=== PATIENT | male | born 1960 | race Caucasian/White ===

== ENCOUNTER 2017-09-07 09:33 | Inpatient (IN) | payer MEDICARE, OTHER ==
[~2017-09-07] VITALS: Ht 185.4 cm; Wt 98.2 kg
[2017-09-07] MEDS ORDERED: BACL10TA PO (09:56)
[2017-09-07] MEDS ORDERED: PROP40TA5 PO (09:56)
[2017-09-07] MEDS ORDERED: ACET325T38 PO (09:56)
[2017-09-07] MEDS ORDERED: METF10002 PO (09:56)
[2017-09-07] MEDS ORDERED: FERR325T18 PO (09:56)
[2017-09-07] MEDS ORDERED: CARB1TAB45 PO (09:56)
[2017-09-07] MEDS ORDERED: ATEN50TA PO (09:56)
[2017-09-07] MEDS ORDERED: POLY17PO6 PO (09:58)
[2017-09-07] MEDS: SINEMET 25/250 (CARBIDOPA/LEVODOPA) TAB PO SCH ×3 (15:11→20:09)
[2017-09-07] MEDS ORDERED: DIAZ2TAB2 PO (17:15)
[2017-09-07] MEDS ORDERED: ACET-168 PO (17:15)
[2017-09-07] MEDS ORDERED: PEDI18TA2 PO (17:15)
[2017-09-07 17:57] VITALS: BP 164/94
[2017-09-07] MEDS: metFORMIN 500 MG (GLUCOPHAGE) TAB PO SCH (18:11)
[2017-09-07] MEDS: PROPRANOLOL 20 MG (INDERAL) TABLET PO SCH (20:09)
[2017-09-07] MEDS ORDERED: BACLOFEN 10 MG (LIORESAL) TAB PO SCH (21:00)
[2017-09-08] MEDS: SINEMET 25/250 (CARBIDOPA/LEVODOPA) TAB PO SCH ×8 (00:30→20:26)
[2017-09-08] MEDS: DIAZEPAM 2 MG (VALIUM) TAB PO PRN ×2 (00:32→22:15)
[2017-09-08 05:04] VITALS: BP 151/85
[2017-09-08] MEDS: metFORMIN 500 MG (GLUCOPHAGE) TAB PO SCH ×2 (06:18→17:45)
[2017-09-08] MEDS: FERROUS SULF 325 MG (IRON) TAB PO SCH (06:19)
[2017-09-08 07:50] VITALS: BP 121/71
[2017-09-08] MEDS: PROPRANOLOL 20 MG (INDERAL) TABLET PO SCH ×2 (08:00→20:26)
[2017-09-08] MEDS: ACETAMINOPHEN 325 MG TABLET/CAPLET (TYLENOL) PO PRN ×2 (08:11→22:15)
[2017-09-08] MEDS ORDERED: ATENOLOL 50 MG (TENORMIN) TAB PO SCH (09:00)
--- NOTE | 2017-09-08 11:47 | ST Cognitive Linguistic Eval ---
Speech Evaluation-General Medical Diagnosis Severe Parkinson's, Debility Onset Date: Sep 07, 2017 Therapy Diagnosis Therapy Diagnosis: Moderate Dysarthria, Moderate Dysphonia Precautions Precautions/Isolations: Standard Precautions Referral Referring Physician: Dr. Samson Ahn Reason for Referral: Evaluation/Treatment Cognitive, Speech, and Language Evaluation Medical History Pertinent Medical History: Parkinson's Current History The patient was recently admitted to [facility] with a diagnosis of severe Parkinson's and debility. Reviewed History: Yes Social History Home: Single Level ("16 Stairs") Current Living Status: Significant Other (Two twin daughters (22 years of age) , One son (17 years of age)) Speech PLF-Current Status Prior Level of Function The patient stated he has struggled with his speech intelligibility since the onset of his Parkinson's diagnosis "many years ago." The patient denied additional cognitive deficits. Subjective The patient was laying in bed upon entrance. The patient greeted the clinician and was agreeable to participation in the cognitive, speech, and language evaluation, however, kept his eyes closed for a majority of the assessment. To note- significantly flat affect noted. Language Eval: Auditory Comprehends Simple Yes/No Ques: Functional Indent/Objects Multiple You: Functional Ident/Pics in Multiple You: Functional Follows 1-Step Commands: Functional Follows Complex Directions: Functional (Intermittent delay noted, however, completed the instruction with additional time provided.) Follows General Conversations: Functional Language Eval: Verbal Language Completes Spontaneous Greeting: Functional Produces Auto, Serial Info: Functional Imitates Simple Words/Phrases: Functional Word Finding: Mild (The patient was able to provide seven animals in a duration of one minute (WNL=11 to 14).) Requests Basic Needs: Functional States Basic Personal Info: Functional To note, the patient's severely flat affect, reduced articulation, and monotone vocal quality reduces the patient's intelligibility through expression significantly. Language Evaluation: Reading Comprehends Single Nouns: Functional Follows Simple Written Direct: Functional Comprehends Multiple Sentences: Functional Language Evaluation: Writing Writes Personal Information: Functional (The patient stated he is able to record his name, however, due to the extensive edema he is experiencing in his hands he is unable to at this time.) Cognitive Patient Orientation The patient was oriented to month and year. The patient stated he was at "[facility] in [place]," the day of the week was "Friday," and the date was the . Objective Cognitive Domain Attention: Mild Memory: WNL At times, the patient's severely decreased affect resulted in the appearance of reduced motivation and participation. However, the patient consistently answered questions poised by the clinician and continued to participate in the assessment for thirty minutes. Objective Oral Motor/Speech Production The patient displays reduced (severely) affect- flat. Additionally, the patient speaks with imprecise articulation, a reduced rate of speech, and a monotonous vocal quality. At this time, the patient displays moderate dysarthria. Impression The patient displays a mild cognitive deficit, as well as, moderate dysarthria characterized by reduced articulation, flat affect, decreased rate of speech, and monotonous vocal quality. Per patient, his "speech problems" have occurred since the onset of his diagnosis "many years ago," however, he is interested in working towards improved intelligibility. Communication/Social Cognition Comprehension: 5 (The patient requires repetition of instructions and pausing for increased comprehension.) Expression: 3 (Moderate promptin is required. The patient is intelligible less than 50% of the time.) Social Interaction: 5 (Significantly flat affect noted. Intermittent encouragement for continued participation.) Problem Solvin (The patient solves routine problems 75 to 90% of the time.) Memory: 5 (The patient requires prompting only under stressful or unfamiliar condition (less than 10% of the time).) Speech Patient Assess Expression of Ideas/Wants: Exhibits (3) Understanding [place] Content: Usually Understands (3) Brief Interview-Mental Status: Yes Repetition of Three Words: Three (3) Temporal Orientation: Year: Correct (3) Temporal Orientation: Month: Accurate within 5 days(2) Temporal Orientation: Day: Incorrect or No Answer(0) Recall : Wear to say "Sock": Yes, no cue required (2) Recall : Color: Yes, no cue required (2) Recall : Bed: Yes, no cue required (2) Speech Short Term Goals Short Term Goals Short Term Goals 1. The patient will demonstrate 80% accuracy with oral motor exercises with mild clinician verbal cueing. 2. The patient will display 80% accuracy with intelligibility strategies with mild clinician cueing. Time Frame-STG: Ten Days Speech Jail Goals Bathhouse Keeper Goals 1. The patient will demonstrate increased expressive communication for improved intelligibility in known and unknown contexts. Time Frame: Two Weeks Comprehension: 5 Expression: 4 Social Interaction: 5 Problem Solvin Memory: 5 Speech-Plan Treatment Plan Speech Therapy Treatment Plan: Continue Plan of Care Continue skilled speech pathology to target improved functional expressive communication. Treatment Duration: September 22, 2017 Frequency: 3 times per week Estimated Hrs Per Day: .5 hour per day Rehab Potential: Guarded Safety Risks/Education Teaching Recipient: Patient Teaching Methods: Discussion Response to Teaching: Verbalize Understanding Education Topics Provided: Results, Recommendations, Plan of Care Time Speech Therapy Time In: 10:00 Speech Therapy Time Out: 10:30 Total Billed Time: 30 Billed Treatment Time 1, BUTCH JENKINS Sep 08, 2017 11:47
--- NOTE | 2017-09-08 12:56 | Physical Therapy Evaluation ---
PT Evaluation-General Medical Diagnosis Admission Date Sep 07, 2017 at 12:37 Medical Diagnosis: Severe Parkinson's, Debility Onset Date: Sep 07, 2017 Therapy Diagnosis Therapy Diagnosis: sepsis; UTI; PD Height/Weight Height (Feet): 6 Height (Inches): 1.00 Weight (Pounds): 214 Weight (Ounces): 3.0 Precautions Precautions/Isolations: Standard Precautions Referral Physician: Jimy Reason for Referral: Evaluation/Treatment Medical History Pertinent Medical History: DM, GERD, HTN, OA, Parkinson's Additional Medical History sleep apnea, metabolic encephalopathy, DDD; severe PD. Current History Pt has a history of PD; reports he recently had a fall and was taken to the hospital. Reports he was found to have a UTI and sepsis. Pt transferred to this facility for continued therapy services. Reviewed History: Yes Social History Home: Single Level Current Living Status: Significant Other (Two twin daughters (22 years of age) , One son (17 years of age)) Prior/Core FIM Prior Level of Function Functional Branch Measure 0=Not Assessed/NA 4=Minimal Assistance 1=Total Assistance 5=Supervision or Setup 2=Maximal Assistance 6=Modified Branch 3=Moderate Assistance 7=Complete Branch Pt reports he had assist getting into bed and moving around in bed. He does report he was able to walk with a SPC and mobilize in his home. He reports he was able to go outdoors and also to get his mail via ambulation. Reports he performs community mobilty. He reports he is able to go to [facility], but is unclear if he walks or uses a wheelchair. PT Evaluation-Current Subjective Pt agreeable to PT. Pt expresses that it will take 2-3 people to get him up. Reports apprehension about sitting EOB with therapy. Pain Numeric Pain Scale: 5-Moderate Pain Location: Soft Tissue Location Body Site: Shoulder (bilat) Pain Description: Ache (sore) Pt/Family Goals His goal is to return home and be able to walk as before. Objective Patient Orientation: Person, Confused (slight), Place, Time, Situation Problem Solving: Fair ROM/Strength ROM Lower Extremities AAROM is WFL all planes; stiff movement. Strenght Lower Extremities B LE strength is 2/5 for hip flexion, 3/5 quads, 3/5 hamstrings; 3/5 DF; hip abduct is 2/5. Integumentary/Posture Integumentary Refer to nursing notes. Bowel Incontinence: Yes Bladder Incontinence: Yes Posture Pt tends to drift to the right in supine in bed with head turned R as well. In sitting, his head is forward with rounded shoulders and anterior pelvic tilt. He has limited cervical rotation ROM and can really only attain neutral rotation and presents typically in right rotation and head forward. Neuromuscular (Tone, Coordination, Reflexes) Coordination and reflexes diminished. Sensory Vision: Functional Hearing: Functional Hand Dominance: Right Sensation Right Lower Extremit: Impaired Sensation Left Lower Extremity: Impaired Sensation Lower Extremities Pt reports his LE sensation is dulled. Transfers Functional Branch Measure 0=Not Assessed/NA 4=Minimal Assistance 1=Total Assistance 5=Supervision or Setup 2=Maximal Assistance 6=Modified Branch 3=Moderate Assistance 7=Complete IndependenceIRFPAI Quality Coding Scale 6 Independent with activity with or without an assistive device 5 Patient requires set up or clean up by helper. Patient completes activity by themselves 4 Supervision or touching assist (CGA). [place] provide cues , steadying assist 3 The helper provides less than half the effort to complete the activity 2 The helper provides more than half the effort to complete the activity 1 Dependent. The helper does all the effort to complete an activity 7 Patient refused to complete or attempt activity 9 The patient did not perform the activity before the current illness or injury 88 Not attempted due to Medical conditions or safety concerns Transfers (B, C, W/C) (FIM): 1 Scootin Rollin Roll Left to Right (QC): 1 Supine to/from Sit: 1 Sit to/from Stand: 1 (unable to come to a full stand) bed t/f WC(FIM only if WC use): 1 (dependent) Sit to Lying (QC): 1 Lying to Sitting/Side of Bed(Q: 1 Sit to Stand (QC): 1 Chair/[id number]-uj-Nmyqk Xfer(QC): 1 Car Transfer (QC): 1 Pt is assist of 2 for all transfers and mobility; unable to come to a full stand for transfers and is a total lift. Gait Does the Patient Walk?: No and Walking Goal IS indicated Mode of Locomotion: Walk Anticipated Mode of Locomotion: Both Gait (FIM): 0 (unable to walk at this time. ) Walk 10 feet (QC): 88 Walk 50 ft with 2 Turns(QC): 88 Walk 150 ft (QC): 88 Walking 10ft/uneven surface-QC: 88 Comments/Gait Description Pt unable to stand or initiate gait at this time. Wheelchair Training Does the Pt Use a Wheelchair?: Yes Wheelchair (FIM): 1 Wheelchair Distance (FIM): 0=does not occure Wheel 50 ft with 2 turns (QC): 88 Wheel 150 ft (QC): 88 Type of Wheelchair: Manual pt is dependent for wheelchair mobilty/ use at this time. Stairs Stairs (FIM): 0 1 Step (curb) (QC): 88 4 Steps (QC): 88 12 Steps (QC): 88 If not tested on admit;explain unable to stand up Balance Sitting Static: Poor (retropulsive and falls to the right. Needs mod to max assist for seated balance. ) Sitting Dynamic: Poor Picking up an Object (QC): 88 Treatment Worked on sitting EOB with use of UE's to prop and on seated trunk control. Worked on being aware of LOB and use of core to facilitate seated balance. Sit to stand attemps, total dependent and unable to come to a full stand. Rolling in bed for linen management as well as positioning in bed. Propped to his left to pressure relief. Assessment/Needs Pt presents with PMH of PD which limits his functional mobiolity at PLOF He recently had an infection that has caused a decline in functional strength and mobilty that he was mod indep with SBA at prior function is is not total care. He has a decline in strength, transfers, seated balance, ability to stand up and ability to walk. He was mobile previously, so feel that he has potential to make functional gains and progress his mobility to a level that his and family can manage at home. Currently, he is total assist, but is willing to participate. He also has decreased functional activity tolerance. Rehab Potential: Guarded PT Short Term Goals Short Term Goals Time Frame: September 22, 2017 Transfers (B,C,W/C) (FIM): 3 Gait (FIM): 2 Distance (FIM): 5=991-97 ft Gait Assistive Device: FWW Wheelchair (FIM): 4 Wheelchair distance (FIM): 3=150 ft PT Clinical Education Coordinator Goals Detention Goals PT Detention Goals Time Frame: October 06, 2017 Transfers (B,C,W/C) (FIM): 6 Sit to Lying (QC): 6 Lying-Sitting on Side/Bed(QC): 6 Sit to Stand (QC): 6 Roll Left to Right (QC): 6 Chair/Vnk-uk-Csrdu Xfer(QC): 6 Car Transfer (QC): 5 Does the Patient Walk: No and Walking Goal IS indicated Gait (FIM): 5 Gait distance (FIM): 5=660-12 ft (household exception) Walk 10 feet (QC): 6 Walk 10ft-Uneven Surface(QC): 6 Walk 50ft with 2 Turns (QC): 6 Walk 150 ft (QC): 88 Gait Assistive Device: FWW Does the Pt use WC or Scooter?: Yes Wheelchair (FIM): 6 Wheelchair distance (FIM): 3=150 ft Wheel 50 feet with 2 turns (QC: 6 Stairs (FIM): 2 # of Steps: 4 1 Step (curb) (QC): 4 4 Steps (QC): 4 12 Steps (QC): 88 Picking up an Object (QC): 88 PT Plan Problem List Problem List: Activity Tolerance, Functional Strength, Safety, Balance, Gait, Transfer, Bed Mobility Treatment/Plan Treatment Plan: Continue Plan of Care Treatment Plan: Bed Mobility, Education, Functional Activity [place], Functional Strength, Group Therapy, Gait, Safety, Therapeutic Exercise, Transfers Treatment Duration: October 06, 2017 Frequency: At least 5 of 7 days/Wk (IRF) Estimated Hrs Per Day: 1.5 hours per day Patient and/or Family Agrees t: Yes Safety Risks/Education Patient Education: Safety Issues Teaching Recipient: Patient Teaching Methods: Discussion Response to Teaching: Reinforcement Needed Time/GCodes Time In: 900 Time Out: 1000 Total Billed Treatment Time: 60 Total Billed Treatment visit EVM 30 FA 30 NAINA SHARPE PT Sep 08, 2017 12:56
--- NOTE | 2017-09-08 13:52 | Occupational Therapy Eval ---
OT Evaluation-General/PLF Medical Diagnosis Admission Date Sep 07, 2017 at 12:37 Medical Diagnosis: Severe Parkinson's, Debility Onset Date: Sep 07, 2017 Therapy Diagnosis Therapy Diagnosis: decr self care, weakness, decr funct mob, decr act rosalia Height/Weight Height (Feet): 6 Height (Inches): 1.00 Weight (Pounds): 214 Weight (Ounces): 3.0 Precautions Precautions/Isolations: Standard Precautions Safety Interventions: None Referral Physician: Jimy Referral Reason: Evaluation/Treatment Medical History Pertinent Medical History: DM, GERD, HTN, Neuropathy, OA, Parkinson's Additional Medical History Anxiety, depression. Sleep apnea. Chronic constipation, intermittent urinary incontinence. Back injury (pt reported three back surgeries), DDD. Tension headaches. Current History Severe Parkinson's. Debility. UTI. metabolic encephalopathy. Dyskinesia, bradykinesia. Cogwheel rigidity. Double vision. Unsteady gait. Pt reported that he fell and hit his head (forehead) in early August Reviewed History: Yes Social History Home: Single Level Current Living Status: Significant Other (Two twin daughters (22 years of age) , One son (17 years of age)) Entry Into Home: Stairs With Railing Steps Inside Home: 13 ADL-Prior Level of Function ADL PLOF Comments Pt was able to manage his basic self care needs prior to illness. He walked with a cane and was able to toilet himself. He said that he gave up driving about a year ago. He is retired from building chairs for [employer] and said that he has had Parkinson's for about 10 years. DME/Equipment: Grab Bars, Shower Hose Plant And Instrument Engineer, Tall Toilet, Tub/Shower Drive Self: No OT Current Status Subjective Pt seen in javid, up in bed, agreeable to OT. Pain reported 4/10 in buttocks, managed by repositioning. Appearance Alert, cooperative Mental Status/Objective Patient Orientation: Person, Place, Situation Current Glasses/Contacts: Yes (readers) Hearing Aids: No Dentures/Partials: Yes (upper amd lower) Hand Dominance: Right Upper Extremity ROM PROM grossly FL but limited by edema in hands. R shoulder flex approx 90 degr, elbow flex/ext grossly WFL, pron/sup WFL, unable to make a full fist due to edema in fingers. L UE shoulder grossly 30 degrees flex, elbow mid range, pron/ sup mid range, fingers - unable to make complete fist due to weakness and edema Upper Extremity Coordination impaired bilat Upper Extremity Sensation pt reported neuropathy in all fingers Upper Extremity Strength R UE grossly 3-/5 throughout. L UE grossly 2/5 throughout ADL-Treatment ADL-Current ADLs done in bed. Per PT, he was able to sit EOB this morning for approx 15 minutes. Pt rolled side to side several times each way to assist with bathing and dressing. Also had to reach arms up in the air multiple times for bathing and grooming and to help with dressing. Pt educ modified techniques. Pt was fitted with large Isotoner gloves for each hand to help decrease edema. He is at times very difficult to understand and is more intelligible when he says fewer words. Pt left up in bed, turned toward R side, L arm elevated on pillow , 4 rails up, all needs met. Talked with nursing informatics analyst about getting him a push button call light. Functional [place] Measure 0=Not Assessed/NA 4=Minimal Assistance 1=Total Assistance 5=Supervision or Setup 2=Maximal Assistance 6=Modified [place] 3=Moderate Assistance 7=Complete IndependenceIRFPAI Quality Coding Scale 6 Independent with activity with or without an assistive device 5 Patient requires set up or clean up by helper. Patient completes activity by themselves 4 Supervision or touching assist (CGA). [place] provide cues , steadying assist 3 The helper provides less than half the effort to complete the activity 2 The helper provides more than half the effort to complete the activity 1 Dependent. The helper does all the effort to complete an activity 7 Patient refused to complete or attempt activity 9 The patient did not perform the activity before the current illness or injury 88 Not attempted due to Medical conditions or safety concerns Grooming (FIM): 2 (Pt was able to get bottom denture out but help was needed to unstick uppers. Pt unable to brush teeth but could brush his mouth the setup , large handle to put on toothbrush, a little help to reposition toothbrush in mouth. Washed his face with min assist and hands with mod assist. Hair is short and does not need to be brushed. ) Oral Hygiene (QC): 2 Bathing (FIM): 1 (20%. PT was able to wash chest with mod assist to position washcloth. Able to wash chest with setup. Difficulty holding on to washcloth. Bedbath, done in bed. Max assist needed to roll side to side to wash back. ) Bathing Location: L Arm, Chest Shower/Bathe Self (QC): 2 Upper Body Dressing (FIM): 2 (Pt could help some to pull arms out of shirt and put them in but unable to get shirt over head, pulled fown in back. Max assist to roll sode to side to pull shirt down.) Upper Body Dressing (QC): 2 Lower Body Dressing (FIM): 1 (Pt was dependant with putting pants on and with slipper socks. max assist to roll side to side. Dressed in bed. ) Lower Body Dressing (QC): 1 On/Off Footwear (QC): 1 Toileting (FIM): 1 (Unable to manage clothing and hygiene) Toileting Hygiene (QC): 1 Toilet/Commode Transfer (FIM): 0 (Unable to transfer to BSC or toilet) Toilet Transfer (QC): 88 (Unable and unsafe) Shower Transfer (FIM): 0 (Unable and unsafe) Education OT Patient Education: Instructions don/doff splint/brace, Modified ADL techniques, Progress toward Goal/Update tx plan, Purpose of tx/functional activities, Rehab process, Other Teaching Recipient: Patient Teaching Methods: Demonstration, Discussion Response to Teaching: Verbalize Understanding, Return Demonstration, Reinforcement Needed OT Short Term Goals Short Term Goals Time Frame: September 22, 2017 Eating(FIM): 4 Bathing(FIM): 4 Upper Body Dressing(FIM): 4 Toilet/Commode Transfer(FIM): 3 Additional Short Term Goals: 1-Demonstrate ADL Tasks, 2-Verbalize Understanding , 3-ImproveStrength/[place] 1=Demonstrate adherence to instructed precautions during ADL tasks. 2=Patient will verbalize/demonstrate understanding of assistive devices/ modifications for ADL. 3=Patient will improve strength/tolerance for activity to enable patient to perform ADL's. OT Brewing Director Goals Brewing Director Goals Time Frame: October 06, 2017 Eating (FIM): 5 Eating (QC): 4 Groomin Oral Hygiene (QC): 5 Bathing(FIM): 4 Shower/Bathe Self (QC): 4 Upper Body Dressing(FIM): 5 Upper Body Dressing (QC): 5 Lower Body Dressing(FIM): 5 Lower Body Dressing (QC): 5 On/Off Footwear (QC): 5 Toileting(FIM): 44 Toileting Hygiene (QC): 4 Toilet/Commode Transfer(FIM): 4 Toilet/Commode Transfer (QC): 4 Tub Transfer(FIM): 4 (or shower) Shower Transfer(FIM): 4 (or tub) Comprehension(FIM): 5 Expression (FIM): 4 Social Interaction(FIM): 5 Problem Solving(FIM): 5 Memory(FIM): 5 Additional Goals: 1-Demonstrate ADL Tasks, 2-Verbalize Understanding, 3- ImproveStrength/[place] 1=Demonstrate adherence to instructed precautions during ADL tasks. 2=Patient will verbalize/demonstrate understanding of assistive devices/ modifications for ADL. 3=Patient will improve strength/tolerance for activity to enable patient to perform ADL's. OT Education/Plan Problem List/Assessment Assessment: Decreased Activ Tolerance, Decreased UE Strength, Dependent Transfers, Edema, Impaired Bed Mobility, Impaired Coordination, Impaired Funct Balance, Impaired Self-Care Skills, Restricted Funct UE ROM Pt would benefit from skilled OT to increase his independence in basic self care and to decrease caregiver burden Discharge Recommendations Plan/Recommendations: Continue POC Treatment Plan/Plan of Care Treatment,Training & Education: Yes Patient would benefit from OT for education, treatment and training to promote independence in ADL's, mobility, safety and/or upper extremity function for ADL' s. Plan of Care: ADL Retraining, Functional Mobility, Group Exercise/Act as Ind ( education, exercise, socialization, problem solving, funct mobility), Orthotic Fitting/Training, UE Funct Exercise/Act, UE Neuromus Re-Ed/Coord, W/C Management Training Treatment Duration: October 06, 2017 Frequency: At least 5 of 7 days/Wk (IRF) Estimated Hrs Per Day: 1.5 hours per day (1.25 to 1.5) Agreement: Yes Rehab Potential: Poor Time/GCodes Start Time: 10:30 Stop Time: 11:35 Total Time Billed (hr/min): 65 Billed Treatment Time visit, 15 minutes evaluation high intensity, 50 minutes ADL CELIO PERDUE OT Sep 08, 2017 13:52
--- NOTE | 2017-09-08 15:09 | Occupational Ther Daily Note ---
OT Current Status-Daily Note Subjective Pt seen in room, up in bed, agreeable to OT. No pain mentioned. Appearance Alert, cooperative Mental Status/Objective Functional [place] Measure 0=Not Assessed/NA 4=Minimal Assistance 1=Total Assistance 5=Supervision or Setup 2=Maximal Assistance 6=Modified [place] 3=Moderate Assistance 7=Complete [place] ADL-Treatment Pt was assisted with lunch, using built up handled utensils and R hand. He needed help scooping, getting food to his mouth. He was left sitting upright in bed at end of meal, 4 rails up. Pt also had been provided with touch-sensitive call light and was able to operate it with R hand. Functional [place] Measure 0=Not Assessed/NA 4=Minimal Assistance 1=Total Assistance 5=Supervision or Setup 2=Maximal Assistance 6=Modified [place] 3=Moderate Assistance 7=Complete IndependenceIRFPAI Quality Coding Scale 6 Independent with activity with or without an assistive device 5 Patient requires set up or clean up by helper. Patient completes activity by themselves 4 Supervision or touching assist (CGA). [place] provide cues , steadying assist 3 The helper provides less than half the effort to complete the activity 2 The helper provides more than half the effort to complete the activity 1 Dependent. The helper does all the effort to complete an activity 7 Patient refused to complete or attempt activity 9 The patient did not perform the activity before the current illness or injury 88 Not attempted due to Medical conditions or safety concerns Eating (FIM): 2 (Built up handles used for silverware. Pt needed help scooping food, needed help lifting elbow and arm to get utensil or food to his mouth, then was able to get food off utensil. Help needed to butter bread, then help to lift arm to get bread to mouth. Pt got food to mouth x1 without help lifting arm or placing utensil. Unable to hold mug could get drink from small cup on table. Pt had difficulty chewing and swallowing roast and did better when it was mixed with gravy and potatoes. Speech notified) Eating (QC): 2 Education OT Patient Education: Modified ADL techniques, Purpose of tx/functional activities, Safety issues Teaching Recipient: Patient Teaching Methods: Demonstration, Discussion Response to Teaching: Verbalize Understanding, Return Demonstration, Reinforcement Needed OT Short Term Goals Short Term Goals Time Frame: September 22, 2017 Eating(FIM): 4 Bathing(FIM): 4 Upper Body Dressing(FIM): 4 Toilet/Commode Transfer(FIM): 3 Additional Short Term Goals: 1-Demonstrate ADL Tasks, 2-Verbalize Understanding , 3-ImproveStrength/[place] 1=Demonstrate adherence to instructed precautions during ADL tasks. 2=Patient will verbalize/demonstrate understanding of assistive devices/ modifications for ADL. 3=Patient will improve strength/tolerance for activity to enable patient to perform ADL's. OT County Coroner Goals Fdc Goals Time Frame: October 06, 2017 Eating (FIM): 5 Eating (QC): 4 Groomin Oral Hygiene (QC): 5 Bathing(FIM): 4 Shower/Bathe Self (QC): 4 Upper Body Dressing(FIM): 5 Upper Body Dressing (QC): 5 Lower Body Dressing(FIM): 5 Lower Body Dressing (QC): 5 On/Off Footwear (QC): 5 Toileting(FIM): 44 Toileting Hygiene (QC): 4 Toilet/Commode Transfer(FIM): 4 Toilet/Commode Transfer (QC): 4 Tub Transfer(FIM): 4 (or shower) Shower Transfer(FIM): 4 (or tub) Comprehension(FIM): 5 Expression (FIM): 4 Social Interaction(FIM): 5 Problem Solving(FIM): 5 Memory(FIM): 5 Additional Goals: 1-Demonstrate ADL Tasks, 2-Verbalize Understanding, 3- ImproveStrength/[place] 1=Demonstrate adherence to instructed precautions during ADL tasks. 2=Patient will verbalize/demonstrate understanding of assistive devices/ modifications for ADL. 3=Patient will improve strength/tolerance for activity to enable patient to perform ADL's. OT Education/Plan Problem List/Assessment Pt would benefit from skilled OT to increase his independence in basic self care and to decrease caregiver burden Discharge Recommendations Plan/Recommendations: Continue POC Treatment Plan/Plan of Care Patient would benefit from OT for education, treatment and training to promote independence in ADL's, mobility, safety and/or upper extremity function for ADL' s. Plan of Care: ADL Retraining, Functional Mobility, Group Exercise/Act as Ind ( education, exercise, socialization, problem solving, funct mobility), Orthotic Fitting/Training, UE Funct Exercise/Act, UE Neuromus Re-Ed/Coord, W/C Management Training Treatment Duration: October 06, 2017 Frequency: At least 5 of 7 days/Wk (IRF) Estimated Hrs Per Day: 1.5 hours per day (1.25 to 1.5) Agreement: Yes Rehab Potential: Poor Time/GCodes Start Time: 12:35 Stop Time: 13:05 Total Time Billed (hr/min): 30 Billed Treatment Time visit, 30 minutes ADL CELIO PERDUE OT Sep 08, 2017 15:09
--- NOTE | 2017-09-08 16:27 | PM&R Post Admission Assessment ---
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 The patient will have a comprehensive program of inpatient rehabilitation with a goal of maximizing level of functional independence prior to discharge home with SO. The patient will have PT/OT ninety minutes per day, each discipline, five days a week for 2 weeks for gait, strengthening, conditioning, balance, ADLs, any patient/family/caregiver training as necessary. Speech therapy to do cognitive,speech and swallow assessment and treat as indicated for 30-45 min per day for 5 days a week for 2 weeks. Rehabilitation nursing to assist with bowel, bladder, skin, medication administration, pain management. Rustic Fence Builder to assist with discharge planning, community reentry. SCD's for DVT prophylaxis. He appears to be well motivated to participate in three hours of therapy a day. He should be able to tolerate three hours of therapy a day from a medical standpoint. He should benefit from the three hours of therapy a day. He has a reasonable discharge plan, reasonable discharge rehabilitation goals and a supportive family. He has various comorbidities that need to be closely monitored with medications and treatments adjusted on a daily basis as needed. These include: DM HTN GERD Barriers to discharge for this patient who had been independent prior to this are for him to be modified independent to supervision for ADLs and mobility skills prior to discharge home with spouse, so as to lessen the burden of the caregivers. Risks for this patient include: 1. Fall 2. Fracture 3. DVT 4. Pulmonary embolism 5. Wound infection 6. Skin breakdown 7. Contractures 8. Poorly controlled pain 9. Urinary retention 10. UTI 11. Respiratory infection 12. Aspiration 13. progressive park D 15. Poorly controlled HTN 15. Poorly controlled DM Estimated Length of Stay: 14 days Prognosis: Rehab prognosis appears good for goal of discharge home with SO modified independent to supervision for ADLs and mobility skills. General: Alert, Cooperative, No Acute Distress HEENT: Atraumatic, PERRLA, EOMI, Mucous Memb Moist/[place], Other (Flat affect Monotone voice) Neck: Supple, No JVD Lungs: Clear to Auscultation Heart: Regular Rate Abdomen: Normal Bowel Sounds, Soft, No Tenderness Extremities: No Edema Neuro: Other (Plus rigidity with dyscoordination and decreased sensation BLES Mild memry loos and impaired Comprehension Gait instability) DAISHA MUSTAFA MD Sep 08, 2017 16:27
[2017-09-08 17:39] VITALS: BP 135/76
--- NOTE | 2017-09-08 17:43 | HISTORY AND PHYSICAL ---
DATE OF SERVICE: 09/08/2017 CHIEF COMPLAINT: Difficulty walking. HISTORY OF PRESENT ILLNESS: The patient is a 57-year-old male who lives with family in [place], [place] who has had progressive Parkinson's for several years, but had been able to manage his basic self-care needs prior to illness and ambulated with a cane and was able to toilet himself. Currently, he was taken to an outside hospital after a fall, was found to have UTI. He had a decline in functional independence due to all this. There is a history of some bladder and bowel incontinence. Currently, he is assist of two for all transfers and mobility, unable to come to a full stand for transfers and has a total lift. He is max assist for grooming, bathing, upper body dressing, dependent for lower body dressing and toileting. He is on Sinemet. PAST MEDICAL HISTORY: Parkinson's disease, diabetes mellitus, GERD, hypertension, neuropathy, osteoarthritis, chronic constipation, sleep apnea, anxiety, depression, prior back injury, tension headaches, degenerative disk disease. PAST SURGICAL HISTORY: Three prior spine surgeries. ALLERGIES: TANYA INHIBITORS, ASPIRIN AND LOSARTAN. FAMILY HISTORY: Noncontributory. SOCIAL HISTORY: Lives with a significant other in [place], [place]. He has two twin daughters and one son 22 years of age and 17 years of age respectively. There are stairs with a railing to enter into the home with a single level home.Referred to IRU by [facility] REVIEW OF SYSTEMS: A 10-point review of systems significant for some memory loss, weakness, stiffness, falls, intermittent urinary incontinence, back pain, anxiety, depression, tension headaches. MEDICATIONS: Ferrous sulfate 325 mg p.o. daily, Inderal 40 mg p.o. b.i.d., metformin 1000 mg p.o. b.i.d., Sinemet two tablets p.o. every 3 hours, diazepam 2 mg p.o. t.i.d. p.r.n. anxiety, Tylenol 650 mg p.o. q.4 hours p.r.n. mild pain, MiraLax 17 grams p.o. b.i.d. p.r.n. constipation. PHYSICAL EXAMINATION: GENERAL: Significant for a male appearing stated age, lying in bed, no acute distress. VITAL SIGNS: He is afebrile, pulse is 89, respirations 20, blood pressure 121/71, O2 sat 98% on room air. HEENT: He has a somewhat flat affect. Vision and hearing are grossly intact. He has reduced articulation and monotone vocal quality. NEUROLOGIC: He has mild attention deficits. He has a reduced rate of speech. The patient required repetition of instructions and pausing for increase comprehension, moderate prompting is required for expression. The patient's can answer routine problems 75 to 90% of the time. The patient's memory is mildly impaired. NECK: Supple without mass. HEART: Regular rhythm. CHEST: Clear. ABDOMEN: Soft, nontender, bowel sounds present. EXTREMITIES: No lower extremity edema, no calf tenderness. MUSCULOSKELETAL: The patient has functional passive range of motion of all four limbs, but decreased coordination and increased stiffness. NEUROLOGIC: Speech and cognition as per above. Sensation is decreased in lower limbs, coordination and reflexes are diminished. He has stiffness with movement. Strength is 2/5 for hip flexion, 3/5 quads as well as hamstrings and dorsi flexors, hip abductors 2/5. He has dentures. He is right hand dominant. Coordination in both upper limbs is impaired. He reported some neuropathy in his fingers. Strength right upper limb 3-/5, left upper limb 2/5. ASSESSMENT: 1. Progressive Parkinson's disease with resulting decline in functional independence, status post fall associated with UTI. 2. Diabetes mellitus, controlled with medication. 3. Hypertension, controlled with medication. 4. Neuropathy. 5. Gastroesophageal reflux disease. 6. Osteoarthritis. 7. Chronic constipation. 8. Sleep apnea. 9. Anxiety/depression. 10. Intermittent urinary incontinence. 11. Chronic back pain status post 3 prior surgeries. 12. Tension headaches. PLAN: The patient is admitted to the inpatient rehabilitation unit for a comprehensive program of inpatient rehabilitation with goal of maximizing level of functional independence prior to discharge home with significant other. The patient will have PT, OT, speech as outlined in post-admission physician evaluation. Please see that document for details of plan of care. Rehabilitation nursing to assist with bowel, bladder, skin care, medication administration, pain management and social media intern with discharge planning, community reentry. Consult Dr. Atkins to assist with medical management of this out of town patient. Monitor Accu-Cheks and adjust medications as appropriate. Therapy with cardiac and fall precautions. ESTIMATED LENGTH OF STAY: 14 days. PROGNOSIS: Rehab prognosis appears good for improving to prior level of function hopefully prior to discharge to home with significant other. DIET: Carb consistent. CODE STATUS: Full code. Job ID: [id number] DocumentID: [id number] Dictated Date: 09/08/2017 16:20:42 Bus Person Dishwasher Date: 09/08/2017 17:42:38 Dictated By: DAISHA MUSTAFA MD MTDD
[2017-09-09] MEDS: SINEMET 25/250 (CARBIDOPA/LEVODOPA) TAB PO SCH ×8 (00:01→21:14)
[2017-09-09 05:21] VITALS: BP 147/84
[2017-09-09] MEDS: FERROUS SULF 325 MG (IRON) TAB PO SCH (06:04)
[2017-09-09] MEDS: metFORMIN 500 MG (GLUCOPHAGE) TAB PO SCH ×2 (06:04→17:01)
[2017-09-09] MEDS: ACETAMINOPHEN 325 MG TABLET/CAPLET (TYLENOL) PO PRN ×2 (08:41→19:32)
[2017-09-09] MEDS: PROPRANOLOL 20 MG (INDERAL) TABLET PO SCH ×2 (08:41→21:14)
--- NOTE | 2017-09-09 09:59 | Physical Therapy Daily Note ---
PT Daily Note-Current Subjective Agreeable. Reports he did not sleep well last night but notes he does not typically sleep well. Pain Numeric Pain Scale: 7 Location: Posterior Location Body Site: Back (cervical spine) Pain Description: Ache, Dull, Stabbing Comment: constant Mental Status Patient Orientation: Person, Place, Time, Situation Transfers Functional [place] Measure 0=Not Assessed/NA 4=Minimal Assistance 1=Total Assistance 5=Supervision or Setup 2=Maximal Assistance 6=Modified [place] 3=Moderate Assistance 7=Complete IndependenceIRFPAI Quality Coding Scale 6 Independent with activity with or without an assistive device 5 Patient requires set up or clean up by helper. Patient completes activity by themselves 4 Supervision or touching assist (CGA). [place] provide cues , steadying assist 3 The helper provides less than half the effort to complete the activity 2 The helper provides more than half the effort to complete the activity 1 Dependent. The helper does all the effort to complete an activity 7 Patient refused to complete or attempt activity 9 The patient did not perform the activity before the current illness or injury 88 Not attempted due to Medical conditions or safety concerns Transfers (B, C, W/C) (FIM): 1 [place] Supine to/from Sit: 1 (Assist of 1 to sit EOB but assist of 2 to transfer sit to supine) Sit to stand lift to stand and transfer. Performed 3 transfers with the sit to stand lift; assist to support his hands and close supervision. Sit to stand x 1 in // bars with assist at both hands to hold the // bars. Pt able to full lift buttock off chair with max assist and bear weight through both legs. Unable to fully extend his shoulders or neck very forward flexed, and head rested ont his therapists shoulder. Able to stand approx 20 sec but once standing only required mod assist to maintain. Wheelchair Training Does the Pt Use a Wheelchair?: Yes Wheelchair (FIM): 1 Wheelchair Distance: 1=up to 49 ft Distance: 10 ft Wheelchair Level of Assist: 2 Wheel 50 ft with 2 turns (QC): 88 Wheel 150 ft (QC): 88 Type of Wheelchair: Manual Fit wheelchair to his leg length. Added wC cushion Treatments Co treat part of session with OT (923-2). Due to the complexity of his needs and extensive assist required, 2 skilled clinicians indicated to address his gross and fine motor movement as well. In addition, As PT addressed the functional transfer, OT was assessing WC seating, commode size and self care needs. Decided together that knobs on the wheelchair will be beneficial for propulsion of chair with UE's Assessment Pt tolerated treatment well and tolerated the sit to stand lift very well. Feel that he benefitted today from chair fitting, upright sitting, standing activity and out of room activity. Pt motivated and pleasant. Improved ability to initiate mobiltyu today. PT Short Term Goals Short Term Goals Time Frame: September 22, 2017 Gait (FIM): 2 Distance (FIM): 4=929-21 ft Gait Assistive Device: FWW Wheelchair (FIM): 4 Wheelchair distance (FIM): 3=150 ft PT [place] Slabs Goals [place] Slabs Goals PT Usp Goals Time Frame: October 06, 2017 Transfers (B,C,W/C) (FIM): 6 Sit to Lying (QC): 6 Lying-Sitting on Side/Bed(QC): 6 Sit to Stand (QC): 6 Rollin Roll Left to Right (QC): 6 Chair/[id number]-qs-[id number] Xfer(QC): 6 Car Transfer (QC): 5 Does the Patient Walk: No and Walking Goal IS indicated Gait (FIM): 5 Gait distance (FIM): 3=495-41 ft (household exception) Walk 10 feet (QC): 6 Walk 10ft-Uneven Surface(QC): 6 Walk 50ft with 2 Turns (QC): 6 Walk 150 ft (QC): 88 Gait Assistive Device: FWW Does the Pt use WC or Scooter?: Yes Wheelchair (FIM): 6 Wheelchair distance (FIM): 3=150 ft Wheel 50 feet with 2 turns (QC: 6 Stairs (FIM): 2 # of Steps: 4 1 Step (curb) (QC): 4 4 Steps (QC): 4 12 Steps (QC): 88 Picking up an Object (QC): 88 PT Plan Problem List Problem List: Activity Tolerance, Functional Strength, Safety, Balance, Gait, Transfer, Bed Mobility Treatment/Plan Treatment Plan: Continue Plan of Care Treatment Plan: Bed Mobility, Education, Functional Activity [place], Functional Strength, Group Therapy, Gait, Safety, Therapeutic Exercise, Transfers Treatment Duration: October 06, 2017 Frequency: At least 5 of 7 days/Wk (IRF) Estimated Hrs Per Day: 1.5 hours per day Patient and/or Family Agrees t: Yes Safety Risks/Education Patient Education: Transfer Techniques (sit to stand lift ), Safety Issues Teaching Recipient: Patient Teaching Methods: Demonstration, Discussion Response to Teaching: Reinforcement Needed Time/GCodes Time In: 800 Time Out: 900 Total Billed Treatment Time: 60 Total Billed Treatment visit FA 60 Co treat with OT 45 min NAINA SHARPE PT September 09, 2017 09:59
--- NOTE | 2017-09-09 12:30 | Consultation ---
History of Present Illness History of Present Illness Patient Consulted On(robbie/time) 09/09/17 12:20 Time Seen by Provider: 12:15 History of Present Illness Patient is a 57-year-old male who has progressive Parkinson disease. Patient recently had a fall, UTI and decline functional dependence. Patient has history of diabetes, GERD, hypertension, sleep apnea, osteoarthritis , chronic constipation, area Surgeries 3 spinal surgeries previously. Patient has degenerative disc disease. Patient has Parkinson disease. Patient speech is not optimal. Patient penis and scrotum enlarged swollen and appears yeast Allergies and Home Medications Allergies Coded Allergies: aspirin (Verified Allergy, Intermediate, 09/07/17) swelling losartan (Verified Allergy, Intermediate, 09/07/17) swelling TANYA Inhibitors (Verified Allergy, Mild, 09/07/17) fatigue Home Medications Acetaminophen 500 Mg Tablet, 1,000 MG PO BID PRN for PAIN-MILD, (Reported) TAKES 2 (500 MG) TABLETS Carbidopa/Levodopa 1 Each Tab.rapdis, 2 TAB PO EVERY 3 HOURS, (Reported) Diazepam 2 Mg Tablet, 2 MG PO Q8H PRN for MUSCLE SPASMS, (Reported) Metformin HCl 1,000 Mg Tablet, 1,000 MG PO BID WITH MEALS, (Reported) Pedi Mv No.79/Ferrous Fumarate 18 Mg Tab.chew, 18 MG PO DAILY, (Reported) Polyethylene Glycol 3350 17 Gm Powd.pack, 17 GM PO BID PRN PRN for CONSTIPATION- 2ND LINE, (Reported) Propranolol HCl 40 Mg Tablet, 40 MG PO BID, (Reported) Patient Home Medication List Home Medication List Reviewed: Yes Past Bevjmlu-Epeied-Fcofic Hx Patient Social History Alcohol Use: Denies Use Recreational Drug Use: No Smoking Status: Never a Smoker Recent Foreign Travel: No Contact w/Someone Who Travel: No Recent Infectious Disease Expo: No Recent Hopitalizations: Yes Seasonal Allergies Seasonal Allergies: No Past Medical History Surgeries: Yes Respiratory: No Sleep Apnea Cardiac: Yes Neurological: Yes Genitourinary: No Chronic Constipation Musculoskeletal: Yes Degenerate Disk Disease, Chronic Back Pain Are Your Blood Sugars Over 250: Yes HEENT: No Cancer: No Psychosocial: Yes Anxiety, Depression Integumentary: No Blood Disorders: No Review of Systems-General Constitutional: malaise, weakness EENTM: no symptoms reported Respiratory: no symptoms reported Cardiovascular: no symptoms reported Gastrointestinal: no symptoms reported Genitourinary: other (Swollen penis and scrotum and redness) Physical Exam-General Problems Physical Exam Vital Signs Vital Signs - First Documented 09/07/17 09/07/17 17:57 20:15 Temp 96.9 Pulse 86 Resp 16 B/P (MAP) 164/94 (117) Pulse Ox 99 O2 Delivery Room Air Capillary Refill : General Appearance: WD/WN, no apparent distress Eyes: Bilateral Eye Normal Inspection HEENT: normal ENT inspection Neck: full range of motion, normal inspection Respiratory: chest non-tender, normal breath sounds, no respiratory distress, no accessory muscle use Cardiovascular: regular rate, rhythm, no murmur Assessment/Plan Assessment/Plan Admission Diagnosis/Plan Severe Parkinson. Debility. Diabetes. Osteoarthritis. Weakness. Clinical Quality Measures DVT/VTE Risk/Contraindication: Risk Factor Score Per Nursin RFS Level Per Nursing on Admit: 3=High JAMES DE LA CRUZ DO September 09, 2017 12:30
--- NOTE | 2017-09-09 13:21 | Occupational Ther Daily Note ---
OT Current Status-Daily Note Subjective Pt seen in room, up at EOB, agreeable to OT. Pt rated pain in neck 11/18 and said he has had it since he fell and hit his head. Appearance Alert, cooperative Mental Status/Objective Functional [place] Measure 0=Not Assessed/NA 4=Minimal Assistance 1=Total Assistance 5=Supervision or Setup 2=Maximal Assistance 6=Modified [place] 3=Moderate Assistance 7=Complete [place] ADL-Treatment Co-tx with PT due to complexity of limitations and need for two different skilled professionals to address issues. PT focused on transfer and positioning while OT focused on w/c management with UEs, ADLs, UE function and placement. Pt transferred from bed to w/c with sit to stand lift, with help to place hands on arm rests of lift. By last transfer, he was able to lift both hands to assist with placement. In w/c, pt had difficulty pushing rims. Would benefit from gloves to provide more traction and knobs on rims. Also practiced toilet transfer using Donaldo lift. BSC in room was too wide so a smaller one with flat surface was found. In gym, pt practiced standing in parallel bars. OT skilled assistance needed for hand placement on L side but he was able to cloth picker and place R hand. See PT note for actual standing information, as needed for standing to pull pants up and transfer on toilet. Pt was returned to his room and transferred back to bed with sit to stand lift, with pt helping to hold on to arms of lift. Isotoner gloves were on but removed to help with transfer - edema has decreased in hands. Pt left up in bed, 4 rails up. Touch call light button works well. Pt also able to get a drink of tea by himself using Levy cup (with min assist). Functional [place] Measure 0=Not Assessed/NA 4=Minimal Assistance 1=Total Assistance 5=Supervision or Setup 2=Maximal Assistance 6=Modified [place] 3=Moderate Assistance 7=Complete IndependenceIRFPAI Quality Coding Scale 6 Independent with activity with or without an assistive device 5 Patient requires set up or clean up by helper. Patient completes activity by themselves 4 Supervision or touching assist (CGA). [place] provide cues , steadying assist 3 The helper provides less than half the effort to complete the activity 2 The helper provides more than half the effort to complete the activity 1 Dependent. The helper does all the effort to complete an activity 7 Patient refused to complete or attempt activity 9 The patient did not perform the activity before the current illness or injury 88 Not attempted due to Medical conditions or safety concerns Eating (FIM): 4 Transfers (B, C, W/C) (FIM): 1 Toilet/Commode Transfer (FIM): 1 Education OT Patient Education: Modified ADL techniques, Purpose of tx/functional activities, Transfer techniques, Use of adapted equipment Teaching Recipient: Patient Teaching Methods: Discussion Response to Teaching: Verbalize Understanding, Return Demonstration, Reinforcement Needed OT Short Term Goals Short Term Goals Time Frame: September 22, 2017 Eating(FIM): 4 Bathing(FIM): 4 Upper Body Dressing(FIM): 4 Toilet/Commode Transfer(FIM): 3 Additional Short Term Goals: 1-Demonstrate ADL Tasks, 2-Verbalize Understanding , 3-ImproveStrength/[place] 1=Demonstrate adherence to instructed precautions during ADL tasks. 2=Patient will verbalize/demonstrate understanding of assistive devices/ modifications for ADL. 3=Patient will improve strength/tolerance for activity to enable patient to perform ADL's. OT Blender Laborer Goals Blender Laborer Goals Time Frame: October 06, 2017 Eating (FIM): 5 Eating (QC): 4 Groomin Oral Hygiene (QC): 5 Bathing(FIM): 4 Shower/Bathe Self (QC): 4 Upper Body Dressing(FIM): 5 Upper Body Dressing (QC): 5 Lower Body Dressing(FIM): 5 Lower Body Dressing (QC): 5 On/Off Footwear (QC): 5 Toileting(FIM): 44 Toileting Hygiene (QC): 4 Toilet/Commode Transfer(FIM): 4 Toilet/Commode Transfer (QC): 4 Tub Transfer(FIM): 4 (or shower) Shower Transfer(FIM): 4 (or tub) Comprehension(FIM): 5 Expression (FIM): 4 Social Interaction(FIM): 5 Problem Solving(FIM): 5 Memory(FIM): 5 Additional Goals: 1-Demonstrate ADL Tasks, 2-Verbalize Understanding, 3- ImproveStrength/[place] 1=Demonstrate adherence to instructed precautions during ADL tasks. 2=Patient will verbalize/demonstrate understanding of assistive devices/ modifications for ADL. 3=Patient will improve strength/tolerance for activity to enable patient to perform ADL's. OT Education/Plan Problem List/Assessment Pt would benefit from skilled OT to increase his independence in basic self care and to decrease caregiver burden Discharge Recommendations Plan/Recommendations: Continue POC Treatment Plan/Plan of Care Patient would benefit from OT for education, treatment and training to promote independence in ADL's, mobility, safety and/or upper extremity function for ADL' s. Plan of Care: ADL Retraining, Functional Mobility, Group Exercise/Act as Ind ( education, exercise, socialization, problem solving, funct mobility), Orthotic Fitting/Training, UE Funct Exercise/Act, UE Neuromus Re-Ed/Coord, W/C Management Training Treatment Duration: October 06, 2017 Frequency: At least 5 of 7 days/Wk (IRF) Estimated Hrs Per Day: 1.5 hours per day (1.25 to 1.5) Agreement: Yes Rehab Potential: Poor Time/GCodes Start Time: 08:15 Stop Time: 09:00 Total Time Billed (hr/min): 45 Billed Treatment Time visit, 45 minutes functional activity (co-tx with PT) CELIO PERDUE OT September 09, 2017 13:21
[2017-09-09] MEDS: NYSTATIN CREAM (MYCOSTATIN) 30 GM TUBE TP SCH ×2 (13:23→21:14)
--- NOTE | 2017-09-09 13:56 | PM & R (SOAP) Progress Note ---
Subjective This was a face to face visit with the patient. Date Seen by Provider: September 09, 2017 Time Seen by Provider: 11:50 Subjective/Events-last exam Patient was seen in his room this AM Patient min assist for eating with built up spoon handle.Appreciate Therapy notes Patient dependent for transfers Review of Systems Neurological: Weakness Objective Physician Exam Last Set of Vital Signs Vital Signs Date Time Temp Pulse Resp B/P (MAP) Pulse Ox O2 Delivery O2 Flow Rate FiO2 09/09/17 09:29 Room Air 09/09/17 05:21 98.1 77 16 147/84 (105) 97 Capillary Refill : I&O Intake and Output 09/09/17 00:00 Intake Total 1640 ml Balance 1640 ml Intake Oral 1640 ml # Voids 6 General: Alert, Cooperative, No Acute Distress HEENT: Atraumatic, PERRLA, EOMI, Mucous Memb Moist/[place]arn[place], Other (Flat affect Monotone voice) Neck: Supple, No JVD Lungs: Clear to Auscultation Heart: Regular Rate Abdomen: Normal Bowel Sounds, Soft, No Tenderness Extremities: No Edema Neuro: Other (Plus rigidity with dyscoordination and decreased sensation BLES Mild memry loos and impaired Comprehension Gait instability) Results Lab Data Laboratory Tests 09/07/17 16:07: Glucometer 158H 09/07/17 20:51: Glucometer 188H 09/08/17 05:39: Glucometer 169H 09/08/17 10:22: Glucometer 127H 09/08/17 15:58: Glucometer 146H 09/08/17 21:17: Glucometer 153H 09/09/17 05:14: Glucometer 152H 09/09/17 11:11: Glucometer 198H Assessment/Plan Assessment and Plan Progressive [place] D DM controlled with meds HTN controlled with meds Neuropathy GERD OA Chronic constipation Sleep apnea Anxiety/depression Tension headaches Chronic post op back pain Plan Continue PT/OT/ST Team Conference in AM Continue current meds (1) Severe possible 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
--- NOTE | 2017-09-09 14:04 | Physical Therapy Daily Note ---
PT Daily Note-Current Subjective Agreeable to PT. Transfers Functional [place] Measure 0=Not Assessed/NA 4=Minimal Assistance 1=Total Assistance 5=Supervision or Setup 2=Maximal Assistance 6=Modified [place] 3=Moderate Assistance 7=Complete IndependenceIRFPAI Quality Coding Scale 6 Independent with activity with or without an assistive device 5 Patient requires set up or clean up by helper. Patient completes activity by themselves 4 Supervision or touching assist (CGA). [place] provide cues , steadying assist 3 The helper provides less than half the effort to complete the activity 2 The helper provides more than half the effort to complete the activity 1 Dependent. The helper does all the effort to complete an activity 7 Patient refused to complete or attempt activity 9 The patient did not perform the activity before the current illness or injury 88 Not attempted due to Medical conditions or safety concerns Supine to sit EOB with max of 1 assist. Mod assist to maintain seated EOB. Sit to stand lift to transfer bed to chair. Pt had difficulty keeping hands on lift to hold on, but was secure as he transferred. Wheelchair Training Does the Pt Use a Wheelchair?: Yes Wheelchair (FIM): 2 Wheelchair Distance: 1=up to 49 ft Distance: 30 ft Wheelchair Level of Assist: 5 Wheel 50 ft with 2 turns (QC): 2 Type of Wheelchair: Manual used chair that had knobs on the rims for UE propulsion Assessment Pt did great with p ropelling wheelchair with his arms once the knobs were available for propulsion. PT Short Term Goals Short Term Goals Time Frame: September 22, 2017 Gait (FIM): 2 Distance (FIM): 4=958-23 ft Gait Assistive Device: FWW Wheelchair (FIM): 4 Wheelchair distance (FIM): 3=150 ft Wheelchair Distance: 10 ft PT Brand Manager Goals Chcf Goals PT Chcf Goals Time Frame: October 06, 2017 Transfers (B,C,W/C) (FIM): 6 Sit to Lying (QC): 6 Lying-Sitting on Side/Bed(QC): 6 Sit to Stand (QC): 6 Rollin Roll Left to Right (QC): 6 Chair/Zel-vs-Gqymw Xfer(QC): 6 Car Transfer (QC): 5 Does the Patient Walk: No and Walking Goal IS indicated Gait (FIM): 5 Gait distance (FIM): 0=931-40 ft (household exception) Walk 10 feet (QC): 6 Walk 10ft-Uneven Surface(QC): 6 Walk 50ft with 2 Turns (QC): 6 Walk 150 ft (QC): 88 Gait Assistive Device: FWW Does the Pt use WC or Scooter?: Yes Wheelchair (FIM): 6 Wheelchair distance (FIM): 3=150 ft Wheel 50 feet with 2 turns (QC: 6 Stairs (FIM): 2 # of Steps: 4 1 Step (curb) (QC): 4 4 Steps (QC): 4 12 Steps (QC): 88 Picking up an Object (QC): 88 PT Plan Problem List Problem List: Activity Tolerance, Functional Strength, Safety, Balance, Gait, Transfer, Bed Mobility Treatment/Plan Treatment Plan: Continue Plan of Care Treatment Plan: Bed Mobility, Education, Functional Activity [place], Functional Strength, Group Therapy, Gait, Safety, Therapeutic Exercise, Transfers Treatment Duration: October 06, 2017 Frequency: At least 5 of 7 days/Wk (IRF) Estimated Hrs Per Day: 1.5 hours per day Patient and/or Family Agrees t: Yes Safety Risks/Education Patient Education: W/C Management Teaching Recipient: Patient Teaching Methods: Demonstration, Discussion Response to Teaching: Return Demonstration Time/GCodes Time In: 1300 Time Out: 1330 Total Billed Treatment Time: 30 Total Billed Treatment visit FA 15 SCOT 15 NAINA SHARPE PT September 09, 2017 14:04
--- NOTE | 2017-09-09 14:33 | Occupational Ther Daily Note ---
OT Current Status-Daily Note Subjective Pt seen in room, up in bed for lunch, agreeable to OT. No specific pain mentioned. Appearance Alert, cooperative Mental Status/Objective Functional [place] Measure 0=Not Assessed/NA 4=Minimal Assistance 1=Total Assistance 5=Supervision or Setup 2=Maximal Assistance 6=Modified [place] 3=Moderate Assistance 7=Complete [place] ADL-Treatment pt was positioned up in bed, with pillows propped under each arm to help raise elbows to approx shoulder level to assist with hand placement for eating. Fork and spoon set up with built-up handles. He was able to reach for and grasp silverware approx 75% of the time. He also could scoop up food or stab food and get it to his mouth, although with some difficulty, approx 75% of the time. He used a Levy cup to take several drinks with SBA and also drank a milkshake with Levy cup. Gloves were removed to provide traction. Pt was left sitting up in bed because he occasionally had a little trouble clearing food. Pt seemed pleased with increased self care abilities. Pt left up in bed, 4 rails up, call light in place, all needs met. Functional [place] Measure 0=Not Assessed/NA 4=Minimal Assistance 1=Total Assistance 5=Supervision or Setup 2=Maximal Assistance 6=Modified [place] 3=Moderate Assistance 7=Complete IndependenceIRFPAI Quality Coding Scale 6 Independent with activity with or without an assistive device 5 Patient requires set up or clean up by helper. Patient completes activity by themselves 4 Supervision or touching assist (CGA). [place] provide cues , steadying assist 3 The helper provides less than half the effort to complete the activity 2 The helper provides more than half the effort to complete the activity 1 Dependent. The helper does all the effort to complete an activity 7 Patient refused to complete or attempt activity 9 The patient did not perform the activity before the current illness or injury 88 Not attempted due to Medical conditions or safety concerns Eating (FIM): 4 Education OT Patient Education: Correct positioning, Modified ADL techniques, Progress toward Goal/Update tx plan, Purpose of tx/functional activities, Use of adapted equipment Teaching Recipient: Patient Teaching Methods: Demonstration, Discussion Response to Teaching: Verbalize Understanding, Return Demonstration, Reinforcement Needed OT Short Term Goals Short Term Goals Time Frame: September 22, 2017 Eating(FIM): 4 Bathing(FIM): 4 Upper Body Dressing(FIM): 4 Toilet/Commode Transfer(FIM): 3 Additional Short Term Goals: 1-Demonstrate ADL Tasks, 2-Verbalize Understanding , 3-ImproveStrength/[place] 1=Demonstrate adherence to instructed precautions during ADL tasks. 2=Patient will verbalize/demonstrate understanding of assistive devices/ modifications for ADL. 3=Patient will improve strength/tolerance for activity to enable patient to perform ADL's. OT Senior Living Goals Senior Living Goals Time Frame: October 06, 2017 Eating (FIM): 5 Eating (QC): 4 Groomin Oral Hygiene (QC): 5 Bathing(FIM): 4 Shower/Bathe Self (QC): 4 Upper Body Dressing(FIM): 5 Upper Body Dressing (QC): 5 Lower Body Dressing(FIM): 5 Lower Body Dressing (QC): 5 On/Off Footwear (QC): 5 Toileting(FIM): 44 Toileting Hygiene (QC): 4 Toilet/Commode Transfer(FIM): 4 Toilet/Commode Transfer (QC): 4 Tub Transfer(FIM): 4 (or shower) Shower Transfer(FIM): 4 (or tub) Comprehension(FIM): 5 Expression (FIM): 4 Social Interaction(FIM): 5 Problem Solving(FIM): 5 Memory(FIM): 5 Additional Goals: 1-Demonstrate ADL Tasks, 2-Verbalize Understanding, 3- ImproveStrength/[place] 1=Demonstrate adherence to instructed precautions during ADL tasks. 2=Patient will verbalize/demonstrate understanding of assistive devices/ modifications for ADL. 3=Patient will improve strength/tolerance for activity to enable patient to perform ADL's. OT Education/Plan Problem List/Assessment Pt would benefit from skilled OT to increase his independence in basic self care and to decrease caregiver burden Discharge Recommendations Plan/Recommendations: Continue POC Treatment Plan/Plan of Care Patient would benefit from OT for education, treatment and training to promote independence in ADL's, mobility, safety and/or upper extremity function for ADL' s. Plan of Care: ADL Retraining, Functional Mobility, Group Exercise/Act as Ind ( education, exercise, socialization, problem solving, funct mobility), Orthotic Fitting/Training, UE Funct Exercise/Act, UE Neuromus Re-Ed/Coord, W/C Management Training Treatment Duration: October 06, 2017 Frequency: At least 5 of 7 days/Wk (IRF) Estimated Hrs Per Day: 1.5 hours per day (1.25 to 1.5) Agreement: Yes Rehab Potential: Poor Time/GCodes Start Time: 11:30 Stop Time: 12:15 Total Time Billed (hr/min): 45 Billed Treatment Time visit, 45 minutes ADL CELIO PERDUE OT September 09, 2017 14:33
--- NOTE | 2017-09-09 15:10 | Diagnostic Imaging Report ---
INDICATION: Neck pain. TIME OF EXAMINATION: 02:02 p.m. EXAMINATION: Three views of the cervical spine were obtained. FINDINGS: There is reversal of the normal cervical lordotic curvature. There appears to be severe multilevel facet arthropathy. There is also multilevel degenerative disc disease with disc space narrowing and marginal spurring. Prevertebral tissues are normal. Odontoid appears intact. IMPRESSION: Severe cervical spondylosis and reversal of the normal curvature. No acute features seen although the study is limited due to severe degenerative change. If there is concern for acute cervical spine injury, MRI or CT would be recommended for further evaluation. Dictated by: Dictated on workstation # [id number]
[2017-09-09 15:28] LABS: BILIRUBIN,URINE NEGATIVE (NEGATIVE); CLARITY,URINE CLEAR; COLOR,URINE AMBER; GLUCOSE, URINE (UA) NEGATIVE (NEGATIVE); KETONES,URINE 1+ (NEGATIVE); LEUKOCYTE ESTERASE ,URINE 1+ (NEGATIVE); NITRITE,URINE NEGATIVE (NEGATIVE); PH,URINE 5 (5-9); PROTEIN,URINE 4+ (NEGATIVE); UROBILINOGEN,URINE 1 MG/DL (NORMAL)
[2017-09-09 15:36] LABS: BACTERIA,URINE FEW /HPF; RBC,URINE TNTC /HPF
[2017-09-09 17:46] VITALS: BP 166/89
[2017-09-09] MEDS: DIAZEPAM 2 MG (VALIUM) TAB PO PRN (19:31)
[2017-09-10] MEDS: SINEMET 25/250 (CARBIDOPA/LEVODOPA) TAB PO SCH ×8 (00:01→21:34)
[2017-09-10 05:21] LABS: MEAN PLATELET VOLUME 8.9 FL (7.4-10.4); RED BLOOD COUNT 2.18 10^6/uL (4.35-5.85); RED CELL DISTRIBUTION WIDTH 14.6 % (10.0-14.5); WHITE BLOOD COUNT 8.4 10^3/uL (4.3-11.0)
[2017-09-10 05:43] VITALS: BP 137/75
[2017-09-10 05:44] LABS: ALANINE AMINOTRANSFERASE < 6 U/L (0-55); ALKALINE PHOSPHATASE 79 U/L (40-136); BILIRUBIN,TOTAL 0.2 MG/DL (0.1-1.0); BUN/CREATININE RATIO 33; CALCIUM 7.8 MG/DL (8.5-10.1); CARBON DIOXIDE 19 MMOL/L (21-32); CHLORIDE 110 MMOL/L (98-107); CREATININE SERUM 0.66 MG/DL (0.60-1.30); GFR ESTIMATED > 60; GLUCOSE 145 MG/DL (70-105); POTASSIUM 4.8 MMOL/L (3.6-5.0); SODIUM 135 MMOL/L (135-145); TOTAL PROTEIN 5.6 GM/DL (6.4-8.2)
[2017-09-10 06:09] LABS: HEMOGLOBIN 6.5 G/DL (13.3-17.7)
[2017-09-10] MEDS: FERROUS SULF 325 MG (IRON) TAB PO SCH (06:42)
[2017-09-10] MEDS: metFORMIN 500 MG (GLUCOPHAGE) TAB PO SCH ×2 (06:42→17:40)
[2017-09-10] MEDS ORDERED: diphenhydrAMINE 25 MG TAB (BENADRYL) PO SCH (07:15)
--- NOTE | 2017-09-10 08:31 | Progress Note (SOAP) ---
Subjective Time Seen by Provider: 08:30 Subjective/Events-last exam Patient anemic today. Patient to have his CBC rechecked. Patient may need a unit of blood Objective Exam Vital Signs Date Time Temp Pulse Resp B/P (MAP) Pulse Ox O2 Delivery O2 Flow Rate FiO2 09/10/17 05:43 97.2 79 20 137/75 (95) 99 Room Air 09/09/17 21:00 Room Air 09/09/17 17:46 99.2 87 18 166/89 (114) 98 Room Air 09/09/17 09:29 Room Air I & O 09/10/17 07:00 Intake Total 1060 ml Output Total 400 ml Balance 660 ml Capillary Refill : General Appearance: No Apparent Distress, WD/WN HEENT: Normal ENT Inspection Neck: Non Tender Respiratory: Lungs Clear, No Accessory Muscle Use, No Respiratory Distress Cardiovascular: Regular Rate, Rhythm, No Murmur Results Lab Laboratory Tests 09/10/17 04:21 Laboratory Tests 09/09/17 11:11: Glucometer 198H 09/09/17 15:00: Urine Color AMBERH, Urine Clarity CLEAR, Urine pH 5, Urine Specific [place] 1.015L, Urine Protein 4+, Urine Glucose (UA) NEGATIVE, Urine Ketones 1+H, Urine Nitrite NEGATIVE, Urine Bilirubin NEGATIVE, Urine Urobilinogen 1, Urine Leukocyte Esterase 1+H, Urine RBC (Auto) 5+H, Urine RBC TNTCH, Urine WBC 10-25H , Urine Crystals NONE, Urine Bacteria FEWH, Urine Casts NONE, Urine Mucus NEGATIVE, Urine Culture Indicated YES 09/09/17 16:26: Glucometer 122H 09/09/17 20:41: Glucometer 138H 09/10/17 04:21: White Blood Count 8.4, Red Blood Count 2.18L, Hemoglobin 6.5*L, Hematocrit 20*L , Mean Corpuscular Volume 93, Mean Corpuscular Hemoglobin 30, Mean Corpuscular Hemoglobin Concent 32, Red Cell Distribution Width 14.6H, Platelet Count 325, Mean Platelet Volume 8.9, Sodium Level 135, Potassium Level 4.8, Chloride Level 110H, Carbon Dioxide Level 19L, Anion Gap 6, Blood Urea Nitrogen 22H, Creatinine 0.66, Estimat Glomerular Filtration Rate > 60, BUN/Creatinine Ratio 33, Glucose Level 145H, Calcium Level 7.8L, Total Bilirubin 0.2, Aspartate Amino Transf (AST/SGOT) 13, Alanine Aminotransferase (ALT/SGPT) < 6, Alkaline Phosphatase 79, B-Type Natriuretic Peptide 111.3H, Total Protein 5.6L, Albumin 2.0L Microbiology 09/09/17 Urine Culture - Preliminary, Resulted NO GROWTH Assessment/Plan Assessment/Plan Assess & Plan/Chief Complaint Severe Parkinson. Debility. Diabetes. Osteoarthritis. Weakness.. . 09/10/17. Severe Parkinson. Debility. Diabetes. Anemia. Rechecking anemia Clinical Quality Measures DVT/VTE Risk/Contraindication: Risk Factor Score Per Nursin RFS Level Per Nursing on Admit: 3=High JAMES DE LA CRUZ DO September 10, 2017 08:31
[2017-09-10 08:36] LABS: HEMOGLOBIN 7.6 G/DL (13.3-17.7)
--- NOTE | 2017-09-10 09:00 | Physical Therapy Daily Note ---
PT Daily Note-Current Subjective Pt. in bed with lab present attempting to draw blood. This EQUIPMENT APPLICATION SPECIALIST introduces self with pt. then asking "Im so weak , what do you think you will be able to do today?" pt. indicates he knows himself and and he is so very weak today. " Hard to believe I was on my feet Friday, helped my buy a car and now Im down like this" Pain Numeric Pain Scale: 0-No Pain Mental Status Patient Orientation: Mumbles, Normal For Age difficult to understand pts speech Transfers Functional [place] Measure 0=Not Assessed/NA 4=Minimal Assistance 1=Total Assistance 5=Supervision or Setup 2=Maximal Assistance 6=Modified [place] 3=Moderate Assistance 7=Complete IndependenceIRFPAI Quality Coding Scale 6 Independent with activity with or without an assistive device 5 Patient requires set up or clean up by helper. Patient completes activity by themselves 4 Supervision or touching assist (CGA). [place] provide cues , steadying assist 3 The helper provides less than half the effort to complete the activity 2 The helper provides more than half the effort to complete the activity 1 Dependent. The helper does all the effort to complete an activity 7 Patient refused to complete or attempt activity 9 The patient did not perform the activity before the current illness or injury 88 Not attempted due to Medical conditions or safety concerns Transfers (B, C, W/C) (FIM): 1 Scootin Rollin Supine to/from Sit: 1 required max assist to roll left and right and sat up with HOB up only, no sitting EOB Exercises Supine Ex: Ankle pumps, Quad Set, Rolling, Glut sets, Heel Slides, Short Arc Quads, Scooting, Hip abd/add Supine Reps: 20 Treatments pt. required assist for exercise Assessment Current Status: Poor Progress pts. hgb reported at 6.5. Dr Atkins present , assessed pt.and states due to appearance of eye mucosa pts. Hgb is likely higher and requested repeated H&H. This EQUIPMENT APPLICATION SPECIALIST recorded BP174/97, HR 89, O2 sat 98% on room air PT Short Term Goals Short Term Goals Time Frame: September 22, 2017 Gait (FIM): 2 Distance (FIM): 1=163-06 ft Gait Assistive Device: FWW Wheelchair (FIM): 4 Wheelchair distance (FIM): 3=150 ft Wheelchair Distance: 30 ft PT Automotive Buyer Goals Automotive Buyer Goals PT Automotive Buyer Goals Time Frame: October 06, 2017 Transfers (B,C,W/C) (FIM): 6 Sit to Lying (QC): 6 Lying-Sitting on Side/Bed(QC): 6 Sit to Stand (QC): 6 Rollin Roll Left to Right (QC): 6 Chair/Mub-cy-Vctgm Xfer(QC): 6 Car Transfer (QC): 5 Does the Patient Walk: No and Walking Goal IS indicated Gait (FIM): 5 Gait distance (FIM): 5=332-46 ft (household exception) Walk 10 feet (QC): 6 Walk 10ft-Uneven Surface(QC): 6 Walk 50ft with 2 Turns (QC): 6 Walk 150 ft (QC): 88 Gait Assistive Device: FWW Does the Pt use WC or Scooter?: Yes Wheelchair (FIM): 6 Wheelchair distance (FIM): 3=150 ft Wheel 50 feet with 2 turns (QC: 6 Stairs (FIM): 2 # of Steps: 4 1 Step (curb) (QC): 4 4 Steps (QC): 4 12 Steps (QC): 88 Picking up an Object (QC): 88 PT Plan Treatment/Plan Treatment Plan: Continue Plan of Care Treatment Plan: Bed Mobility, Education, Functional Activity [place], Functional Strength, Group Therapy, Gait, Safety, Therapeutic Exercise, Transfers Treatment Duration: October 06, 2017 Frequency: At least 5 of 7 days/Wk (IRF) Estimated Hrs Per Day: 1.5 hours per day Patient and/or Family Agrees t: Yes Safety Risks/Education Patient Education: Transfer Techniques, Correct Positioning, Disease Process, Safety Issues Teaching Recipient: Patient Teaching Methods: Demonstration, Discussion Response to Teaching: Verbalize Understanding, Return Demonstration, Reinforcement Needed Time/GCodes Time In: 800 Time Out: 900 Total Billed Treatment Time: 60 Total Billed Treatment 1,FA40m,EX20m G Codes Necessary: JARED Parr EQUIPMENT APPLICATION SPECIALIST September 10, 2017 09:00
--- NOTE | 2017-09-10 09:02 | PM & R (SOAP) Progress Note ---
Subjective This was a face to face visit with the patient. Date Seen by Provider: September 10, 2017 Time Seen by Provider: 07:35 Subjective/Events-last exam Patient was seen in his room this AM Patient Dependent for transfers with staff using sit to stand. Objective Physician Exam Last Set of Vital Signs Vital Signs Date Time Temp Pulse Resp B/P (MAP) Pulse Ox O2 Delivery O2 Flow Rate FiO2 09/10/17 05:43 97.2 79 20 137/75 (95) 99 Room Air Capillary Refill : I&O Intake and Output 09/10/17 00:00 Intake Total 1260 ml Output Total 400 ml Balance 860 ml Intake Oral 1260 ml Output Urine Total 400 ml # Voids 3 General: Alert, Cooperative, No Acute Distress HEENT: Atraumatic, PERRLA, EOMI, Mucous Memb Moist/[place], Other (Flat affect Monotone voice) Neck: Supple, No JVD Lungs: Clear to Auscultation Heart: Regular Rate Abdomen: Normal Bowel Sounds, Soft, No Tenderness Extremities: No Edema Neuro: Other (Plus rigidity with dyscoordination and decreased sensation BLES Mild memry loos and impaired Comprehension Gait instability) Results Lab Data Laboratory Tests 09/07/17 16:07: Glucometer 158H 09/07/17 20:51: Glucometer 188H 09/08/17 05:39: Glucometer 169H 09/08/17 10:22: Glucometer 127H 09/08/17 15:58: Glucometer 146H 09/08/17 21:17: Glucometer 153H 09/09/17 05:14: Glucometer 152H 09/09/17 11:11: Glucometer 198H 09/09/17 15:00: Urine Color AMBERH, Urine Clarity CLEAR, Urine pH 5, Urine Specific [place] 1.015L, Urine Protein 4+, Urine Glucose (UA) NEGATIVE, Urine Ketones 1+H, Urine Nitrite NEGATIVE, Urine Bilirubin NEGATIVE, Urine Urobilinogen 1, Urine Leukocyte Esterase 1+H, Urine RBC (Auto) 5+H, Urine RBC TNTCH, Urine WBC 10-25H , Urine Crystals NONE, Urine Bacteria FEWH, Urine Casts NONE, Urine Mucus NEGATIVE, Urine Culture Indicated YES 09/09/17 16:26: Glucometer 122H 09/09/17 20:41: Glucometer 138H 09/10/17 04:21: White Blood Count 8.4, Red Blood Count 2.18L, Hemoglobin 6.5*L, Hematocrit 20*L , Mean Corpuscular Volume 93, Mean Corpuscular Hemoglobin 30, Mean Corpuscular Hemoglobin Concent 32, Red Cell Distribution Width 14.6H, Platelet Count 325, Mean Platelet Volume 8.9, Sodium Level 135, Potassium Level 4.8, Chloride Level 110H, Carbon Dioxide Level 19L, Anion Gap 6, Blood Urea Nitrogen 22H, Creatinine 0.66, Estimat Glomerular Filtration Rate > 60, BUN/Creatinine Ratio 33, Glucose Level 145H, Calcium Level 7.8L, Total Bilirubin 0.2, Aspartate Amino Transf (AST/SGOT) 13, Alanine Aminotransferase (ALT/SGPT) < 6, Alkaline Phosphatase 79, B-Type Natriuretic Peptide 111.3H, Total Protein 5.6L, Albumin 2.0L 09/10/17 08:21: Hemoglobin 7.6L, Hematocrit 22L Microbiology 09/09/17 Urine Culture - Preliminary, Resulted NO GROWTH Assessment/Plan Assessment and Plan Progressive Park D DM controlled Anemia on replacement discussed with Dr atkins OA GERD Chronic constipation ANTONIA Anxiety/depression Chronic postop back pain Neuropathy Plan Continue PT/OT Monitor Labs Team Conference later todat see report for full functional update and POC and ELOS F/U with DR Atkins PRN (1) Severe possible 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
[2017-09-10] MEDS: NYSTATIN CREAM (MYCOSTATIN) 30 GM TUBE TP SCH ×3 (09:16→21:36)
[2017-09-10] MEDS: PROPRANOLOL 20 MG (INDERAL) TABLET PO SCH ×2 (09:16→21:35)
[2017-09-10] MEDS: PANTOPRAZOLE 20 MG TABLET (PROTONIX) PO SCH (09:18)
[2017-09-10] MEDS: ACETAMINOPHEN 325 MG TABLET/CAPLET (TYLENOL) PO PRN (10:03)
--- NOTE | 2017-09-10 11:00 | Individualized Plan of Care ---
"Individualized Plan of Care Rehab Nursing IPOC Order Admission Date Sep 07, 2017 at 12:37 Current Orders Orders Cho 60g/M 0snack (16-2000 Butch) (09/07/17 Lunch) Acetaminophen Tablet/Caplet (Tylenol T (09/07/17 13:30) Atenolol Tablet (Tenormin Tablet) (09/08/17 09:00) Baclofen Tablet (Lioresal Tablet) (09/07/17 21:00) Carbidopa/Levodopa 25/250 (Sinemet 25/25 (09/07/17 15:00) Ferrous Sulfate Tablet (Feosol Tablet) (09/08/17 07:00) Metformin Tablet (Glucophage Tablet) (09/07/17 17:00) Polyethylene Glycol Powder Pkt (Miralax (09/07/17 13:30) Propranolol Tablet (Inderal Tablet) (09/07/17 21:00) Request Ot Evaluate & Treat (09/07/17 14:07) Ambulate TID (09/07/17 14:07) Sequential Compression Device 08,20 (09/07/17 14:07) Dvt/Vte Risk - Notifiy Physici 08 (09/07/17 14:07) Admission-Acute Rehab Unit (09/07/17 14:07) Accucheck Achs ACHS (09/07/17 14:20) Diazepam Tablet (Valium Tablet) (09/07/17 14:30) Pt Evaluate/Treat Request (09/08/17 12:57) Request For Cognitive Services (09/08/17 12:57) Patient Visit (09/08/17 ) Speech Sound Lang Comp (09/08/17 ) Patient Visit (09/08/17 ) Pt Eval Moderate Complexity (09/08/17 ) Functional Activities, Ea 15 (09/08/17 ) Consult Physician (09/08/17 17:19) Cervical Spine 3 Views Or Less (09/09/17 11:08) Comprehensive Metabolic Panel (09/10/17 06:00) Cbc No Diff (09/10/17 06:00) BNP (09/10/17 06:00) Ua Culture If Indicated (09/09/17 15:15) Nystatin Cream (Mycostatin Cream) (09/09/17 13:00) Patient Visit (09/09/17 ) Functional Activities, Ea 15 (09/09/17 ) Wheelchair Mgmt/Propulsn 15min (09/09/17 ) Urine Culture (09/09/17 15:00) Red Cells Leukocytes Reduced (09/10/17 07:02) Blood Trans|Repeat Hgb After U (09/10/17 ) Hemoglobin And Hematocrit (09/10/17 ) Occult Blood Stool (09/10/17 07:02) Type And Screen (09/10/17 07:02) Diphenhydramine Tablet (Benadryl Tablet) (09/10/17 07:15) Cbc With Automated Diff (09/11/17 05:00) Pantoprazole Tablet (Protonix Tablet) (09/10/17 07:36) Hemoglobin And Hematocrit (09/10/17 08:29) Cbc No Diff (09/11/17 06:00) Rehab Nursing Orders: Bladder Management, Bowel Management, Disease Management & Educaiton, DVT Prophylaxis, Management of Skin Intergrity, Nutrition Management, Pain Management, Patient/Family Support PT IPOC Problem List: Activity Tolerance, Functional Strength, Safety, Balance, Gait, Transfer, Bed Mobility Treatment Plan: Continue Plan of Care Bed Mobility, Education, Functional Activity [place], Functional Strength, Group Therapy, Gait, Safety, Therapeutic Exercise, Transfers Treatment Duration: October 06, 2017 Frequency: At least 5 of 7 days/Wk (IRF) Estimated Hrs Per Day: 1.5 hours per day OT IPOC Problems: Decreased Activ Tolerance, Decreased UE Strength, Dependent Transfers , Edema, Impaired Bed Mobility, Impaired Coordination, Impaired Funct Balance, Impaired Self-Care Skills, Restricted Funct UE ROM OT Treatment, Training and Edu: Yes OT Problems Pt would benefit from skilled OT to increase his independence in basic self care and to decrease caregiver burden Plan of Care: ADL Retraining, Functional Mobility, Group Exercise/Act as Ind ( education, exercise, socialization, problem solving, funct mobility), Orthotic Fitting/Training, UE Funct Exercise/Act, UE Neuromus Re-Ed/Coord, W/C Management Training Treatment Duration: October 06, 2017 Frequency: At least 5 of 7 days/Wk (IRF) Estimated Hrs Per Day: 1.5 hours per day (1.25 to 1.5) ST IPOC Speech Therapy Treatment Plan: Continue Plan of Care Treatment Duration: September 22, 2017 Frequency: 3 times per week Estimated Hrs Per Day: .5 hour per day Core Laying Machine Operator/Case Mgmt Core Laying Machine Operator/Case Managemen: Discharge Planning, Patient/Family Counseling Dietitian/Interior Wirer Dietitian/Interior Wirer to monitor nutritional status and make changes and/or recommendations as needed and work with speech pathology on dietary upgrades as the occur. Physician IPOC Medical Issues being managed closely and that require the 24 hour availability of a physician: Progressive park D DM HTN OA GERD Chronic postop back pain ANTONIA Anxiety/depression Chronic anemia Medical Issues: Bowel/Bladder Function, DVT Prophylaxis, Falls Precautions, Fluid/Electrolyte/Nutrition Balance, Infection Protection, Pain Management, Other (List) (as per above) Brief Synthesis of Preadmission Screen, Post-Admission Evaluation, and Therapy Evaluations: 57 yo male who had been Modified Independent with a walker until recently who has had a decline in function at home since 2 falls has a supportive family Has progressive Park D as well as other comorbidities as per above Medical Prognosis: Fair Anticipated Length of Stay: 09-22-17 Rehab Goals Return to [facility] as outlined above if possible Anticipated discharge destinat: Home with family and [facility] DAISHA MUSTAFA MD September 10, 2017 11:00"
--- NOTE | 2017-09-10 11:32 | Speech Therapy Daily Note ---
Speech Daily Progress Note Subjective Date Seen by Provider: September 10, 2017 Time Seen by Provider: 10:00 The patient was laying in bed, head elevated, and awake upon entrance. The patient greeted the clinician and was agreeable to participation in the voice treatment session. Objective Intelligibility Strategies: Intelligibility strategies were introduced on this date (1. Reduce distractions, 2. Over articulate, 3. Face your conversation partner, 4. Reduce your rate of speech). Prior to discussion, the patient independently stated three strategies his currently uses which include: 1. Speak Loudly, 2. Enunciate, 3. Slow Down. The patient demonstrated each strategy , as well as, his awareness of the importance of using each throughout daily conversation. Adductor Fold Exercises: Per patient, "I speak at about a '4' but I know I need to be around a '7.'" The patient was independently placing a loudness scale to his vocal intensity. Adduction exercises were introduced on this date. The patient completed each exercise with high accuracy with moderate clinician cueing provided for increased loudness. Five repetitions of each exercise were performed on this date. Assessment Assessment Current Status: Good Progress Treatment Plan Continue Plan of Care Communication Comprehension: 5 (The patient requires repetition of instructions and pausing for increased comprehension.) Expression: 3 (Moderate promptin is required. The patient is intelligible less than 50% of the time.) Social Cognition Social Interaction: 5 (Significantly flat affect noted. Intermittent encouragement for continued participation.) Problem Solvin (The patient solves routine problems 75 to 90% of the time.) Memory: 5 (The patient requires prompting only under stressful or unfamiliar condition (less than 10% of the time).) Speech Short Term Goals Short Term Goals Short Term Goals 1. The patient will demonstrate 80% accuracy with oral motor exercises with mild clinician verbal cueing. 2. The patient will display 80% accuracy with intelligibility strategies with mild clinician cueing. Time Frame-STG: Ten Days Speech Long-Term Goals Fitting Room Operator Goals 1. The patient will demonstrate increased expressive communication for improved intelligibility in known and unknown contexts. Time Frame: Two Weeks Comprehension: 5 Expression: 4 Social Interaction: 5 Problem Solvin Memory: 5 Speech-Plan Treatment Plan Speech Therapy Treatment Plan: Continue Plan of Care Continue skilled speech pathology to target improved vocal intensity. Treatment Duration: September 22, 2017 Frequency: 3 times per week Estimated Hrs Per Day: .5 hour per day Rehab Potential: Poor Safety Risks/Education Teaching Recipient: Patient Teaching Methods: Demonstration, Handout, Discussion Response to Teaching: Verbalize Understanding, Return Demonstration Education Topics Provided: Intelligibility Strategies, Adductor Fold Exercises Time Speech Therapy Time In: 10:00 Speech Therapy Time Out: 10:30 Total Billed Time: 30 Billed Treatment Time 1, BUTCH HALL September 10, 2017 11:32
--- NOTE | 2017-09-10 12:04 | Occupational Ther Daily Note ---
OT Current Status-Daily Note Subjective Pt seen in room, up in bed, agreeable to OT. Reported discomfort in neck, especially when head of bed going up and down as needed for ADLs. Pt requested pain meds Appearance Alert, cooperative, looks fatigued Mental Status/Objective Functional [place] Measure 0=Not Assessed/NA 4=Minimal Assistance 1=Total Assistance 5=Supervision or Setup 2=Maximal Assistance 6=Modified [place] 3=Moderate Assistance 7=Complete [place] ADL-Treatment Pt had low hemoglobin this morning so shower transfer and shower were deferred. Pt also weaker this morning than yesterday and able to complete less self care. At end of tx, pt left up in bed, 4 rails up, all needs met. Functional [place] Measure 0=Not Assessed/NA 4=Minimal Assistance 1=Total Assistance 5=Supervision or Setup 2=Maximal Assistance 6=Modified [place] 3=Moderate Assistance 7=Complete IndependenceIRFPAI Quality Coding Scale 6 Independent with activity with or without an assistive device 5 Patient requires set up or clean up by helper. Patient completes activity by themselves 4 Supervision or touching assist (CGA). Williams provide cues , steadying assist 3 The helper provides less than half the effort to complete the activity 2 The helper provides more than half the effort to complete the activity 1 Dependent. The helper does all the effort to complete an activity 7 Patient refused to complete or attempt activity 9 The patient did not perform the activity before the current illness or injury 88 Not attempted due to Medical conditions or safety concerns Grooming (FIM): 1 (Unable to clean dentures or brush teeth. Unable to hold washcloth and reach it to wash entire face. Unable to wash hands) Bathing (FIM): 1 (Able to wash center of chest only and unable to either hold wash cloth or reach to wash other parts. Pt given spongebath. Required one person to help roll him and maintain position for other person to wash back and bottom. He was able to help position legs to facilitate washing talisha area in front. ) Upper Body (FIM): 1 (Able to help just a little in placing hands in shirt sleeves, then unable to help pull shirt up, place shirt over head, pull it down. Had to roll side to side with upper body with help to pull shirt down) Lower Body Dressing (FIM): 1 (Able to help pick feet up a little to help with placing them in pants legs. Able to help bend knees to facilitate pants being pulled up to thighs. One person needed to help him roll to his side while second person pulled pants up over hips and bottom. Able to help pick legs up a little for socks to come off and go on but unable to manage socks himself) Education OT Patient Education: Modified ADL techniques, Progress toward Goal/Update tx plan, Purpose of tx/functional activities Teaching Recipient: Patient Teaching Methods: Discussion Response to Teaching: Verbalize Understanding, Return Demonstration OT Short Term Goals Short Term Goals Time Frame: September 22, 2017 Eating(FIM): 4 Bathing(FIM): 4 Upper Body Dressing(FIM): 4 Toilet/Commode Transfer(FIM): 3 Additional Short Term Goals: 1-Demonstrate ADL Tasks, 2-Verbalize Understanding , 3-ImproveStrength/[place] 1=Demonstrate adherence to instructed precautions during ADL tasks. 2=Patient will verbalize/demonstrate understanding of assistive devices/ modifications for ADL. 3=Patient will improve strength/tolerance for activity to enable patient to perform ADL's. OT Skilled Nursing Goals Skilled Nursing Goals Time Frame: October 06, 2017 Eating (FIM): 5 Eating (QC): 4 Groomin Oral Hygiene (QC): 5 Bathing(FIM): 4 Shower/Bathe Self (QC): 4 Upper Body Dressing(FIM): 5 Upper Body Dressing (QC): 5 Lower Body Dressing(FIM): 5 Lower Body Dressing (QC): 5 On/Off Footwear (QC): 5 Toileting(FIM): 44 Toileting Hygiene (QC): 4 Toilet/Commode Transfer(FIM): 4 Toilet/Commode Transfer (QC): 4 Tub Transfer(FIM): 4 (or shower) Shower Transfer(FIM): 4 (or tub) Comprehension(FIM): 5 Expression (FIM): 4 Social Interaction(FIM): 5 Problem Solving(FIM): 5 Memory(FIM): 5 Additional Goals: 1-Demonstrate ADL Tasks, 2-Verbalize Understanding, 3- ImproveStrength/[place] 1=Demonstrate adherence to instructed precautions during ADL tasks. 2=Patient will verbalize/demonstrate understanding of assistive devices/ modifications for ADL. 3=Patient will improve strength/tolerance for activity to enable patient to perform ADL's. OT Education/Plan Problem List/Assessment Pt would benefit from skilled OT to increase his independence in basic self care and to decrease caregiver burden Discharge Recommendations Plan/Recommendations: Continue POC Treatment Plan/Plan of Care Patient would benefit from OT for education, treatment and training to promote independence in ADL's, mobility, safety and/or upper extremity function for ADL' s. Plan of Care: ADL Retraining, Functional Mobility, Group Exercise/Act as Ind ( education, exercise, socialization, problem solving, funct mobility), Orthotic Fitting/Training, UE Funct Exercise/Act, UE Neuromus Re-Ed/Coord, W/C Management Training Treatment Duration: October 06, 2017 Frequency: At least 5 of 7 days/Wk (IRF) Estimated Hrs Per Day: 1.5 hours per day (1.25 to 1.5) Agreement: Yes Rehab Potential: Poor Time/GCodes Start Time: 09:00 Stop Time: 10:00 Total Time Billed (hr/min): 60 Billed Treatment Time visits, 60 minutes ADL CELIO PERDUE OT September 10, 2017 12:04
--- NOTE | 2017-09-10 13:10 | Occupational Ther Daily Note ---
OT Current Status-Daily Note Subjective Pt alert, lying in bed. Pt agreed to therapy. No c/o pain at this time. Mental Status/Objective Patient Orientation: Person, Place, Time, Situation Functional [place] Measure 0=Not Assessed/NA 4=Minimal Assistance 1=Total Assistance 5=Supervision or Setup 2=Maximal Assistance 6=Modified [place] 3=Moderate Assistance 7=Complete [place] ADL-Treatment Functional [place] Measure 0=Not Assessed/NA 4=Minimal Assistance 1=Total Assistance 5=Supervision or Setup 2=Maximal Assistance 6=Modified [place] 3=Moderate Assistance 7=Complete IndependenceIRFPAI Quality Coding Scale 6 Independent with activity with or without an assistive device 5 Patient requires set up or clean up by helper. Patient completes activity by themselves 4 Supervision or touching assist (CGA). Lapel provide cues , steadying assist 3 The helper provides less than half the effort to complete the activity 2 The helper provides more than half the effort to complete the activity 1 Dependent. The helper does all the effort to complete an activity 7 Patient refused to complete or attempt activity 9 The patient did not perform the activity before the current illness or injury 88 Not attempted due to Medical conditions or safety concerns Other Treatment Pt able to hold onto built up utensil with R hand, assist guiding hand into mouth. Unable to tighten labor relations officer on utensil to pull it out of mouth. Gripping Levy cup, assist to guide to mouth and place straw in mouth. UE isolation exercises completed, 10 reps each. Pt demonstrated active movement with fingers , thumbs, wrists, elbows and shldrs. Compensatory movements with exercises throughout body. After therapy, pt lying in bed with call light/phone in reach. All needs met in room. OT Short Term Goals Short Term Goals Time Frame: September 22, 2017 Eating(FIM): 4 Bathing(FIM): 4 Upper Body Dressing(FIM): 4 Toilet/Commode Transfer(FIM): 3 Additional Short Term Goals: 1-Demonstrate ADL Tasks, 2-Verbalize Understanding , 3-ImproveStrength/[place] 1=Demonstrate adherence to instructed precautions during ADL tasks. 2=Patient will verbalize/demonstrate understanding of assistive devices/ modifications for ADL. 3=Patient will improve strength/tolerance for activity to enable patient to perform ADL's. OT Groover And Striper Operator Goals Groover And Striper Operator Goals Time Frame: October 06, 2017 Eating (FIM): 5 Eating (QC): 4 Groomin Oral Hygiene (QC): 5 Bathing(FIM): 4 Shower/Bathe Self (QC): 4 Upper Body Dressing(FIM): 5 Upper Body Dressing (QC): 5 Lower Body Dressing(FIM): 5 Lower Body Dressing (QC): 5 On/Off Footwear (QC): 5 Toileting(FIM): 44 Toileting Hygiene (QC): 4 Toilet/Commode Transfer(FIM): 4 Toilet/Commode Transfer (QC): 4 Tub Transfer(FIM): 4 (or shower) Shower Transfer(FIM): 4 (or tub) Comprehension(FIM): 5 Expression (FIM): 4 Social Interaction(FIM): 5 Problem Solving(FIM): 5 Memory(FIM): 5 Additional Goals: 1-Demonstrate ADL Tasks, 2-Verbalize Understanding, 3- ImproveStrength/[place] 1=Demonstrate adherence to instructed precautions during ADL tasks. 2=Patient will verbalize/demonstrate understanding of assistive devices/ modifications for ADL. 3=Patient will improve strength/tolerance for activity to enable patient to perform ADL's. OT Education/Plan Problem List/Assessment Pt would benefit from skilled OT to increase his independence in basic self care and to decrease caregiver burden Discharge Recommendations Plan/Recommendations: Continue POC Treatment Plan/Plan of Care Patient would benefit from OT for education, treatment and training to promote independence in ADL's, mobility, safety and/or upper extremity function for ADL' s. Plan of Care: ADL Retraining, Functional Mobility, Group Exercise/Act as Ind ( education, exercise, socialization, problem solving, funct mobility), Orthotic Fitting/Training, UE Funct Exercise/Act, UE Neuromus Re-Ed/Coord, W/C Management Training Treatment Duration: October 06, 2017 Frequency: At least 5 of 7 days/Wk (IRF) Estimated Hrs Per Day: 1.5 hours per day (1.25 to 1.5) Agreement: Yes Rehab Potential: Poor Time/GCodes Start Time: 11:30 Stop Time: 11:53 Total Time Billed (hr/min): 23 Billed Treatment Time 1 visit-EX 1 (15 min) FA 1 (8 min) NAINA MEZA September 10, 2017 13:10
--- NOTE | 2017-09-10 13:40 | Physical Therapy Daily Note ---
PT Daily Note-Current Subjective Pt. states he is hungry. This CAREER DEVELOPMENT CONSULTANT put in his order. States in sitting that he is afraid of falling. Pain Comment: states his scrotum is sore, Mental Status Patient Orientation: Mumbles, Normal For Age difficult to understand Transfers Functional [place] Measure 0=Not Assessed/NA 4=Minimal Assistance 1=Total Assistance 5=Supervision or Setup 2=Maximal Assistance 6=Modified [place] 3=Moderate Assistance 7=Complete IndependenceIRFPAI Quality Coding Scale 6 Independent with activity with or without an assistive device 5 Patient requires set up or clean up by helper. Patient completes activity by themselves 4 Supervision or touching assist (CGA). [place] provide cues , steadying assist 3 The helper provides less than half the effort to complete the activity 2 The helper provides more than half the effort to complete the activity 1 Dependent. The helper does all the effort to complete an activity 7 Patient refused to complete or attempt activity 9 The patient did not perform the activity before the current illness or injury 88 Not attempted due to Medical conditions or safety concerns sup to sit max assist and sit to sup as well, needed sitting balance max to mod assist Exercises Supine Ex: Rolling, Heel Slides, Scooting Supine Reps: 10 Treatments pt. in bed , damp from urine, pt. rolled and changed and ointment applied after cleaning to scrotum. Assessment Current Status: Fair Progress dependent for all mobility PT Short Term Goals Short Term Goals Time Frame: September 22, 2017 Gait (FIM): 2 Distance (FIM): 6=831-40 ft Gait Assistive Device: FWW Wheelchair (FIM): 4 Wheelchair distance (FIM): 3=150 ft Wheelchair Distance: 30 ft PT Long-Term Goals Quality Analyst Goals PT Quality Analyst Goals Time Frame: October 06, 2017 Transfers (B,C,W/C) (FIM): 6 Sit to Lying (QC): 6 Lying-Sitting on Side/Bed(QC): 6 Sit to Stand (QC): 6 Rollin Roll Left to Right (QC): 6 Chair/Cek-mu-Smrwn Xfer(QC): 6 Car Transfer (QC): 5 Does the Patient Walk: No and Walking Goal IS indicated Gait (FIM): 5 Gait distance (FIM): 2=530-08 ft (household exception) Walk 10 feet (QC): 6 Walk 10ft-Uneven Surface(QC): 6 Walk 50ft with 2 Turns (QC): 6 Walk 150 ft (QC): 88 Gait Assistive Device: FWW Does the Pt use WC or Scooter?: Yes Wheelchair (FIM): 6 Wheelchair distance (FIM): 3=150 ft Wheel 50 feet with 2 turns (QC: 6 Stairs (FIM): 2 # of Steps: 4 1 Step (curb) (QC): 4 4 Steps (QC): 4 12 Steps (QC): 88 Picking up an Object (QC): 88 PT Plan Treatment/Plan Treatment Plan: Continue Plan of Care Treatment Plan: Bed Mobility, Education, Functional Activity [place], Functional Strength, Group Therapy, Gait, Safety, Therapeutic Exercise, Transfers Treatment Duration: October 06, 2017 Frequency: At least 5 of 7 days/Wk (IRF) Estimated Hrs Per Day: 1.5 hours per day Patient and/or Family Agrees t: Yes Safety Risks/Education Patient Education: Transfer Techniques, Correct Positioning, Disease Process, Safety Issues Teaching Recipient: Patient Teaching Methods: Demonstration Response to Teaching: Unable to Return Demonstration Time/GCodes Time In: 1300 Time Out: 1330 Total Billed Treatment Time: 30 Total Billed Treatment 1,FA30m G Codes Necessary: JARED Parr CAREER DEVELOPMENT CONSULTANT September 10, 2017 13:40
[2017-09-10 18:46] VITALS: BP 187/99
[2017-09-10] MEDS: amLODIPine 5 MG (NORVASC) TAB PO SCH (19:11)
[2017-09-11] MEDS: SINEMET 25/250 (CARBIDOPA/LEVODOPA) TAB PO SCH ×8 (00:06→20:58)
[2017-09-11 06:00] VITALS: BP 153/83
[2017-09-11 06:03] LABS: BASOPHILS % (AUTO) 0 % (0-10); EOSINOPHILS # (AUTO) 0.2 10^3/uL (0.0-0.3); EOSINOPHILS % (AUTO) 2 % (0-10); HEMATOCRIT 21 % (40-54); HEMOGLOBIN 7.1 G/DL (13.3-17.7); LYMPHOCYTES # (AUTO) 1.3 X 10^3 (1.0-4.0); LYMPHOCYTES % (AUTO) 14 % (12-44); MEAN CORPUSCULAR HEMOGLOBIN 31 PG (25-34); MEAN CORPUSCULAR HGB CONC 34 G/DL (32-36); MEAN CORPUSCULAR VOLUME 92 FL (80-99); MEAN PLATELET VOLUME 8.7 FL (7.4-10.4); MONOCYTES # (AUTO) 0.6 X 10^3 (0.0-1.0); MONOCYTES % (AUTO) 6 % (0-12); NEUTROPHILS # (AUTO) 7.2 X 10^3 (1.8-7.8); NEUTROPHILS % (AUTO) 78 % (42-75); PLATELET COUNT 340 10^3/uL (130-400); RED CELL DISTRIBUTION WIDTH 14.3 % (10.0-14.5); WHITE BLOOD COUNT 9.2 10^3/uL (4.3-11.0)
[2017-09-11] MEDS: FERROUS SULF 325 MG (IRON) TAB PO SCH (06:17)
[2017-09-11] MEDS: metFORMIN 500 MG (GLUCOPHAGE) TAB PO SCH ×2 (06:17→16:34)
[2017-09-11] MEDS: PANTOPRAZOLE 20 MG TABLET (PROTONIX) PO SCH (06:17)
[2017-09-11] MEDS: PROPRANOLOL 20 MG (INDERAL) TABLET PO SCH ×2 (07:52→20:58)
[2017-09-11] MEDS: amLODIPine 5 MG (NORVASC) TAB PO SCH (07:52)
[2017-09-11] MEDS: NYSTATIN CREAM (MYCOSTATIN) 30 GM TUBE TP SCH ×3 (07:53→21:00)
--- NOTE | 2017-09-11 08:17 | PM & R (SOAP) Progress Note ---
Subjective This was a face to face visit with the patient. Date Seen by Provider: September 11, 2017 Time Seen by Provider: 07:50 Subjective/Events-last exam Patient was seen in his room this AM HGB 7.1 Patient dependent for transfers Review of Systems General: Fatigue Neurological: Weakness Objective Physician Exam Last Set of Vital Signs Vital Signs Date Time Temp Pulse Resp B/P (MAP) Pulse Ox O2 Delivery O2 Flow Rate FiO2 09/11/17 06:00 97.8 85 18 153/83 (106) 99 Room Air Capillary Refill : I&O Intake and Output 09/11/17 00:00 Intake Total 800 ml Output Total 400 ml Balance 400 ml Intake Oral 800 ml Output Urine Total 400 ml # Voids 2 General: Alert, Cooperative, No Acute Distress HEENT: Atraumatic, PERRLA, EOMI, Mucous Memb Moist/[place], Other (Flat affect Monotone voice) Neck: Supple, No JVD Lungs: Clear to Auscultation Heart: Regular Rate Abdomen: Normal Bowel Sounds, Soft, No Tenderness Extremities: No Edema Neuro: Other (Plus rigidity with dyscoordination and decreased sensation BLES Mild memry loos and impaired Comprehension Gait instability) Results Lab Data Laboratory Tests 09/08/17 10:22: Glucometer 127H 09/08/17 15:58: Glucometer 146H 09/08/17 21:17: Glucometer 153H 09/09/17 05:14: Glucometer 152H 09/09/17 11:11: Glucometer 198H 09/09/17 15:00: Urine Color AMBERH, Urine Clarity CLEAR, Urine pH 5, Urine Specific [place] 1.015L, Urine Protein 4+, Urine Glucose (UA) NEGATIVE, Urine Ketones 1+H, Urine Nitrite NEGATIVE, Urine Bilirubin NEGATIVE, Urine Urobilinogen 1, Urine Leukocyte Esterase 1+H, Urine RBC (Auto) 5+H, Urine RBC TNTCH, Urine WBC 10-25H , Urine Crystals NONE, Urine Bacteria FEWH, Urine Casts NONE, Urine Mucus NEGATIVE, Urine Culture Indicated YES 09/09/17 16:26: Glucometer 122H 09/09/17 20:41: Glucometer 138H 09/10/17 04:21: White Blood Count 8.4, Red Blood Count 2.18L, Hemoglobin 6.5*L, Hematocrit 20*L , Mean Corpuscular Volume 93, Mean Corpuscular Hemoglobin 30, Mean Corpuscular Hemoglobin Concent 32, Red Cell Distribution Width 14.6H, Platelet Count 325, Mean Platelet Volume 8.9, Sodium Level 135, Potassium Level 4.8, Chloride Level 110H, Carbon Dioxide Level 19L, Anion Gap 6, Blood Urea Nitrogen 22H, Creatinine 0.66, Estimat Glomerular Filtration Rate > 60, BUN/Creatinine Ratio 33, Glucose Level 145H, Calcium Level 7.8L, Total Bilirubin 0.2, Aspartate Amino Transf (AST/SGOT) 13, Alanine Aminotransferase (ALT/SGPT) < 6, Alkaline Phosphatase 79, B-Type Natriuretic Peptide 111.3H, Total Protein 5.6L, Albumin 2.0L 09/10/17 08:21: Hemoglobin 7.6L, Hematocrit 22L 09/10/17 11:21: Glucometer 229H 09/10/17 16:37: Glucometer 161H 09/10/17 21:34: Glucometer 147H 09/11/17 05:27: White Blood Count 9.2, Red Blood Count 2.30L, Hemoglobin 7.1L, Hematocrit 21L, Mean Corpuscular Volume 92, Mean Corpuscular Hemoglobin 31, Mean Corpuscular Hemoglobin Concent 34, Red Cell Distribution Width 14.3, Platelet Count 340, Mean Platelet Volume 8.7, Neutrophils (%) (Auto) 78H, Lymphocytes (%) (Auto) 14 , Monocytes (%) (Auto) 6, Eosinophils (%) (Auto) 2, Basophils (%) (Auto) 0, Neutrophils # (Auto) 7.2, Lymphocytes # (Auto) 1.3, Monocytes # (Auto) 0.6, Eosinophils # (Auto) 0.2, Basophils # (Auto) 0.0 09/11/17 05:48: Glucometer 147H Microbiology 09/09/17 Urine Culture - Preliminary, Resulted NO GROWTH Assessment/Plan Assessment and Plan Progressive [place] D on Sinemet generic DM controlled HTN better controlled with adjustment in meds Appreciate DR donnelly note and orders Oa GERD Chronic constipation ANTONIA Anxiety/depression on meds Chronic postop back pain Chronic anemia on replacement Neuropathy Plan Continue PT/OT May need transfusion if HGB continues to drop Team Conference held yesterday-See report for full functional update and POC and ELOS (1) Severe possible 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
--- NOTE | 2017-09-11 08:49 | Progress Note (SOAP) ---
Subjective Time Seen by Provider: 08:45 Subjective/Events-last exam Patient more alert today. Patient's hemoglobin 7.1. Ration has to use a Donaldo lift to get around Objective Exam Vital Signs Date Time Temp Pulse Resp B/P (MAP) Pulse Ox O2 Delivery O2 Flow Rate FiO2 09/11/17 06:00 97.8 85 18 153/83 (106) 99 Room Air 09/10/17 21:00 Room Air 09/10/17 18:46 98.3 90 20 187/99 (128) 98 Room Air 09/10/17 09:00 Room Air I & O 09/11/17 07:00 Intake Total 900 ml Output Total 1350 ml Balance -450 ml Capillary Refill : General Appearance: No Apparent Distress, WD/WN Results Lab Laboratory Tests 09/11/17 05:27 Laboratory Tests 09/10/17 11:21: Glucometer 229H 09/10/17 16:37: Glucometer 161H 09/10/17 21:34: Glucometer 147H 09/11/17 05:27: White Blood Count 9.2, Red Blood Count 2.30L, Hemoglobin 7.1L, Hematocrit 21L, Mean Corpuscular Volume 92, Mean Corpuscular Hemoglobin 31, Mean Corpuscular Hemoglobin Concent 34, Red Cell Distribution Width 14.3, Platelet Count 340, Mean Platelet Volume 8.7, Neutrophils (%) (Auto) 78H, Lymphocytes (%) (Auto) 14 , Monocytes (%) (Auto) 6, Eosinophils (%) (Auto) 2, Basophils (%) (Auto) 0, Neutrophils # (Auto) 7.2, Lymphocytes # (Auto) 1.3, Monocytes # (Auto) 0.6, Eosinophils # (Auto) 0.2, Basophils # (Auto) 0.0 09/11/17 05:48: Glucometer 147H Microbiology 09/09/17 Urine Culture - Preliminary, Resulted NO GROWTH Assessment/Plan Assessment/Plan Assess & Plan/Chief Complaint Severe Parkinson. Debility. Diabetes. Osteoarthritis. Weakness.. . 09/10/17. Severe Parkinson. Debility. Diabetes. Anemia. Rechecking anemia. . 09/11/17. Severe Parkinson disease. Debility. Anemia. Diabetes. Hemoglobin 7.1 Clinical Quality Measures DVT/VTE Risk/Contraindication: Risk Factor Score Per Nursin RFS Level Per Nursing on Admit: 3=High JAMES DE LA CRUZ DO September 11, 2017 08:49
[2017-09-11] MEDS: ACETAMINOPHEN 325 MG TABLET/CAPLET (TYLENOL) PO PRN (10:33)
--- NOTE | 2017-09-11 11:54 | Occupational Ther Daily Note ---
OT Current Status-Daily Note Subjective Pt seen in room, up on BSC, agreeable to OT. Pain reported later in tx, "My bottom really hurts". Nursing notified Appearance Alert, cooperative, looks very tired (hemoglobin 7.1) Mental Status/Objective Functional [place] Measure 0=Not Assessed/NA 4=Minimal Assistance 1=Total Assistance 5=Supervision or Setup 2=Maximal Assistance 6=Modified [place] 3=Moderate Assistance 7=Complete [place] ADL-Treatment Pt was up on bedside commode via Donaldo lift, propped up by pillows. It was unsafe to leave him unattended. Pt attempted to have BM and was unsuccessful. Required assist of two people to transfer him to wheelchair via Donaldo and several positioning adjustments for him to sit evenly and comfortably. He was able to propel his wheelchair (knobs on wheels) about 20 feet but with OT assisting L hand most of the time to pick it up and place it so that it could push knobs. After this functional activity, OT worked on active and active assisted exercise bilat UEs, to help with ADLs and transfers. Pt cont with significant edema in hands which was mobilized somewhat with active and active assistive movements. He was able to make a complete fist with L hand after edema mobilized. R UE grossly 3/5 and can move through full range against gravity except shoulder flex/abd which is to about 90 degrees. L UE wrist to neutral extension, mid point with elbow flex and about 30 degrees flex at shoulder. [address] and hold technique used as well to increase strength. Pt was transported to accessible bathroom to brush teeth and wash face. He reported that his bottom really hurt and needed to go back to bed. Two people needed to safely get him into bed using Donaldo lift. Pt helped roll side to side to remove sling. Pt left up in bed, 4 rails up, all needs met. Functional [place] Measure 0=Not Assessed/NA 4=Minimal Assistance 1=Total Assistance 5=Supervision or Setup 2=Maximal Assistance 6=Modified [place] 3=Moderate Assistance 7=Complete IndependenceIRFPAI Quality Coding Scale 6 Independent with activity with or without an assistive device 5 Patient requires set up or clean up by helper. Patient completes activity by themselves 4 Supervision or touching assist (CGA). [place] provide cues , steadying assist 3 The helper provides less than half the effort to complete the activity 2 The helper provides more than half the effort to complete the activity 1 Dependent. The helper does all the effort to complete an activity 7 Patient refused to complete or attempt activity 9 The patient did not perform the activity before the current illness or injury 88 Not attempted due to Medical conditions or safety concerns Grooming (FIM): 3 (Pt was able to wash about half his face, using R hand and brush teeth about 50%, using built up handle on toothbrush. Lowers cleaned at sink as well by OT) Education OT Patient Education: Purpose of tx/functional activities, Transfer techniques Teaching Recipient: Patient Teaching Methods: Demonstration, Discussion Response to Teaching: Verbalize Understanding, Return Demonstration, Reinforcement Needed OT Short Term Goals Short Term Goals Time Frame: September 22, 2017 Eating(FIM): 4 Bathing(FIM): 4 Upper Body Dressing(FIM): 4 Toilet/Commode Transfer(FIM): 3 Additional Short Term Goals: 1-Demonstrate ADL Tasks, 2-Verbalize Understanding , 3-ImproveStrength/[place] 1=Demonstrate adherence to instructed precautions during ADL tasks. 2=Patient will verbalize/demonstrate understanding of assistive devices/ modifications for ADL. 3=Patient will improve strength/tolerance for activity to enable patient to perform ADL's. OT Senior Living Goals Assistant Professor Of Chemistry Goals Time Frame: October 06, 2017 Eating (FIM): 5 Eating (QC): 4 Groomin Oral Hygiene (QC): 5 Bathing(FIM): 4 Shower/Bathe Self (QC): 4 Upper Body Dressing(FIM): 5 Upper Body Dressing (QC): 5 Lower Body Dressing(FIM): 5 Lower Body Dressing (QC): 5 On/Off Footwear (QC): 5 Toileting(FIM): 44 Toileting Hygiene (QC): 4 Toilet/Commode Transfer(FIM): 4 Toilet/Commode Transfer (QC): 4 Tub Transfer(FIM): 4 (or shower) Shower Transfer(FIM): 4 (or tub) Comprehension(FIM): 5 Expression (FIM): 4 Social Interaction(FIM): 5 Problem Solving(FIM): 5 Memory(FIM): 5 Additional Goals: 1-Demonstrate ADL Tasks, 2-Verbalize Understanding, 3- ImproveStrength/[place] 1=Demonstrate adherence to instructed precautions during ADL tasks. 2=Patient will verbalize/demonstrate understanding of assistive devices/ modifications for ADL. 3=Patient will improve strength/tolerance for activity to enable patient to perform ADL's. OT Education/Plan Problem List/Assessment Pt would benefit from skilled OT to increase his independence in basic self care and to decrease caregiver burden Discharge Recommendations Plan/Recommendations: Continue POC Treatment Plan/Plan of Care Patient would benefit from OT for education, treatment and training to promote independence in ADL's, mobility, safety and/or upper extremity function for ADL' s. Plan of Care: ADL Retraining, Functional Mobility, Group Exercise/Act as Ind ( education, exercise, socialization, problem solving, funct mobility), Orthotic Fitting/Training, UE Funct Exercise/Act, UE Neuromus Re-Ed/Coord, W/C Management Training Treatment Duration: October 06, 2017 Frequency: At least 5 of 7 days/Wk (IRF) Estimated Hrs Per Day: 1.5 hours per day (1.25 to 1.5) Agreement: Yes Rehab Potential: Poor Time/GCodes Start Time: 09:00 Stop Time: 10:00 Total Time Billed (hr/min): 60 Billed Treatment Time visit, 15 minutes ADL, 30 minutes functional activity, 15 minutes exercise CELIO PERDUE OT September 11, 2017 11:54
--- NOTE | 2017-09-11 12:48 | Physical Therapy Daily Note ---
PT Daily Note-Current Subjective Pt. in bed, very difficult to understand. States he would like to get up on a BSC to try to have a BM. Wants to know what his hgb is today and wonders why he feels so tired and weak Pain Comment: c/o discomfort when TRFd up in hieu,": scrotum tight" Mental Status Patient Orientation: Mumbles Transfers Functional [place] Measure 0=Not Assessed/NA 4=Minimal Assistance 1=Total Assistance 5=Supervision or Setup 2=Maximal Assistance 6=Modified [place] 3=Moderate Assistance 7=Complete IndependenceIRFPAI Quality Coding Scale 6 Independent with activity with or without an assistive device 5 Patient requires set up or clean up by helper. Patient completes activity by themselves 4 Supervision or touching assist (CGA). [place] provide cues , steadying assist 3 The helper provides less than half the effort to complete the activity 2 The helper provides more than half the effort to complete the activity 1 Dependent. The helper does all the effort to complete an activity 7 Patient refused to complete or attempt activity 9 The patient did not perform the activity before the current illness or injury 88 Not attempted due to Medical conditions or safety concerns Transfers (B, C, W/C) (FIM): 1 Scootin Rollin Supine to/from Sit: 1 hieu TRF to BSC and w/c, rolling and scooting all max 2 Wheelchair Training Does the Pt Use a Wheelchair?: Yes Wheelchair (FIM): 2 Wheelchair Distance: 1=up to 49 ft (10ftx3) Wheelchair Level of Assist: 2 Type of Wheelchair: Manual very difficult to use arms and hands needs max to mod [place] to move w/c Exercises Supine Ex: Ankle pumps (HC sretches x 5), Heel Slides (assist), Hip abd/add Supine Reps: 12 Assessment Current Status: Poor Progress hgb 7.1 this date, weak , needs full assist for all PT Short Term Goals Short Term Goals Time Frame: September 22, 2017 Gait (FIM): 2 Distance (FIM): 1=200-76 ft Gait Assistive Device: FWW Wheelchair (FIM): 4 Wheelchair distance (FIM): 3=150 ft Wheelchair Distance: 30 ft PT Longterm Goals Longterm Goals PT [employer] Goals Time Frame: October 06, 2017 Transfers (B,C,W/C) (FIM): 6 Sit to Lying (QC): 6 Lying-Sitting on Side/Bed(QC): 6 Sit to Stand (QC): 6 Rollin Roll Left to Right (QC): 6 Chair/Fki-qq-Wksal Xfer(QC): 6 Car Transfer (QC): 5 Does the Patient Walk: No and Walking Goal IS indicated Gait (FIM): 5 Gait distance (FIM): 4=898-48 ft (household exception) Walk 10 feet (QC): 6 Walk 10ft-Uneven Surface(QC): 6 Walk 50ft with 2 Turns (QC): 6 Walk 150 ft (QC): 88 Gait Assistive Device: FWW Does the Pt use WC or Scooter?: Yes Wheelchair (FIM): 6 Wheelchair distance (FIM): 3=150 ft Wheel 50 feet with 2 turns (QC: 6 Stairs (FIM): 2 # of Steps: 4 1 Step (curb) (QC): 4 4 Steps (QC): 4 12 Steps (QC): 88 Picking up an Object (QC): 88 PT Plan Treatment/Plan Treatment Plan: Continue Plan of Care Treatment Plan: Bed Mobility, Education, Functional Activity [place], Functional Strength, Group Therapy, Gait, Safety, Therapeutic Exercise, Transfers Treatment Duration: October 06, 2017 Frequency: At least 5 of 7 days/Wk (IRF) Estimated Hrs Per Day: 1.5 hours per day Patient and/or Family Agrees t: Yes Safety Risks/Education Patient Education: Transfer Techniques, Correct Positioning, W/C Management, Disease Process, Safety Issues Teaching Recipient: Patient Teaching Methods: Demonstration, Discussion Response to Teaching: Verbalize Understanding, Unable to Return Demonstration, Reinforcement Needed Time/GCodes Time In: 800 Time Out: 900 Total Billed Treatment Time: 60 Total Billed Treatment 1,EX20m,FA40m G Codes Necessary: No JARED ESQUEDA COMMERCIAL HOUSEKEEPER September 11, 2017 12:48
--- NOTE | 2017-09-11 14:13 | Speech Therapy Daily Note ---
Speech Daily Progress Note Subjective Date Seen by Provider: September 11, 2017 Time Seen by Provider: 10:00 The patient was laying in bed upon entrance. Per OT, the OT attempted to have the patient remain upright as requested by the Speech Pathologist, however, the patient was unable to tolerate any additional pressure on his bottom. Speech pathology is attempting to have patient upright for treatment sessions as she receives limited effort throughout sessions, as well as, multiple requests for re-positioning. The patient kept his eyes closed for a remainder of the session. The RN was requested by the patient for repositioning two times throughout the thirty minute session. Limited participation was provided by the patient for the third consecutive day. On this date, the patient's speech appeared less intelligible and he was unable to reach previously demonstrated levels of volume. Objective Adductor Fold Exercises: The patient displayed fair accuracy with the adductor fold exercises following moderate verbal prompting and direct modeling by the clinician. The patient displayed limited breath support and effort on this date which decreased volume levels significantly. The patient continued to complete exercises, however, minimal effort was provided. The patient kept his eyes closed and grimaced a majority of the session regardless of multiple attempts by Speech Pathology and nursing for re-positioning. Increased effort will be necessary for improvements (vocal) to be displayed by the patient. Assessment Assessment Current Status: Poor Progress Treatment Plan Continue Plan of Care Communication Comprehension: 5 (The patient requires repetition of instructions and pausing for increased comprehension.) Expression: 3 (Moderate promptin is required. The patient is intelligible less than 50% of the time.) Social Cognition Social Interaction: 5 (Significantly flat affect noted. Intermittent encouragement for continued participation.) Problem Solvin (The patient solves routine problems 75 to 90% of the time.) Memory: 5 (The patient requires prompting only under stressful or unfamiliar condition (less than 10% of the time).) Speech Short Term Goals Short Term Goals Short Term Goals 1. The patient will demonstrate 80% accuracy with oral motor exercises with mild clinician verbal cueing. 2. The patient will display 80% accuracy with intelligibility strategies with mild clinician cueing. Time Frame-STG: Ten Days Speech Correction Goals Accredited Legal Secretary Goals 1. The patient will demonstrate increased expressive communication for improved intelligibility in known and unknown contexts. Time Frame: Two Weeks Comprehension: 5 Expression: 4 Social Interaction: 5 Problem Solvin Memory: 5 Speech-Plan Treatment Plan Speech Therapy Treatment Plan: Continue Plan of Care Continue skilled speech pathology to target functional expressive communication through improved vocal intensity. Treatment Duration: September 22, 2017 Frequency: 3 times per week Estimated Hrs Per Day: .5 hour per day Rehab Potential: Poor Safety Risks/Education Teaching Recipient: Patient Teaching Methods: Discussion Response to Teaching: Verbalize Understanding, Reinforcement Needed Education Topics Provided: Necessity of Appropriate Breath Support/Effort Time Speech Therapy Time In: 10:00 Speech Therapy Time Out: 10:30 Total Billed Time: 30 Billed Treatment Time 1MADELIN ELIZABETH ST September 11, 2017 14:13
[2017-09-11] MEDS: busPIRone 10 MG (BUSPAR) TAB PO SCH ×2 (14:42→20:58)
--- NOTE | 2017-09-11 15:16 | Therapy Group Daily Note ---
Therapy Daily Group Note Patient Education Topic Other List Below (energy conservation) Exercises LE Seated Exercise, UE Exercise Other/Notes Pt transported via w/c to OT/PT group. Group consisted of introduction (name, place living, rainy day activity), socialization, UE/LE seated exercises, ARU description/expectations and energy conservation education. Pt was able to introduce self though voice was soft and mumbled, with cues pt was able to slow speech down and increase volume. Pt actively listened to peers introduction. Pt required assist to complete LE's and L UE exercises, completed R UE exercises by self. Pt listened attentively to education and was able to voice understanding of energy conservation. After therapy, pt lying in bed with call light/phone in reach. All needs met in room. Start Time: 13:00 Stop Time: 14:15 Total Billed Treatment Time: 75 Total Billed Treatment 1-GRP NAINA MEZA September 11, 2017 15:16
[2017-09-11 18:00] VITALS: BP 119/70
[2017-09-11] MEDS: POLYETHYLENE GLYCOL 17 GM (MIRALAX) PACK PO PRN (20:59)
[2017-09-12] MEDS: SINEMET 25/250 (CARBIDOPA/LEVODOPA) TAB PO SCH ×9 (00:02→23:55)
[2017-09-12 05:35] VITALS: BP 157/82
[2017-09-12] MEDS: FERROUS SULF 325 MG (IRON) TAB PO SCH (06:12)
[2017-09-12] MEDS: metFORMIN 500 MG (GLUCOPHAGE) TAB PO SCH ×2 (06:12→16:55)
[2017-09-12] MEDS: PANTOPRAZOLE 20 MG TABLET (PROTONIX) PO SCH (06:12)
[2017-09-12 07:05] LABS: HEMOGLOBIN 7.1 G/DL (13.3-17.7); MEAN PLATELET VOLUME 8.3 FL (7.4-10.4); RED BLOOD COUNT 2.32 10^6/uL (4.35-5.85); RED CELL DISTRIBUTION WIDTH 14.6 % (10.0-14.5); WHITE BLOOD COUNT 10.6 10^3/uL (4.3-11.0)
--- NOTE | 2017-09-12 08:24 | Diagnostic Imaging Report ---
INDICATION: Obstipation. FINDINGS: The bowel gas pattern is nonspecific. Lung bases are clear. There is no free air. There are postsurgical changes in the spine. IMPRESSION: Nonspecific bowel gas pattern. Dictated by: Dictated on workstation # [id number]
[2017-09-12] MEDS: busPIRone 10 MG (BUSPAR) TAB PO SCH ×2 (08:34→20:05)
[2017-09-12] MEDS: SENNA W/DOCUSATE (SENOKOT S) TABLET PO SCH ×2 (08:34→20:05)
[2017-09-12] MEDS: BISACODYL 5 MG (DULCOLAX) TABLET PO SCH (08:34)
[2017-09-12] MEDS: PROPRANOLOL 20 MG (INDERAL) TABLET PO SCH ×2 (08:34→20:05)
[2017-09-12] MEDS: amLODIPine 5 MG (NORVASC) TAB PO SCH (08:34)
[2017-09-12] MEDS: NYSTATIN CREAM (MYCOSTATIN) 30 GM TUBE TP SCH ×3 (08:35→20:06)
--- NOTE | 2017-09-12 08:39 | Progress Note (SOAP) ---
Subjective Time Seen by Provider: 08:35 Subjective/Events-last exam Patient has to have a bowel movement this morning. Patient hemoglobin and hematocrit stable at 7.1. Severe Parkinson. Debility Objective Exam Vital Signs Date Time Temp Pulse Resp B/P (MAP) Pulse Ox O2 Delivery O2 Flow Rate FiO2 09/12/17 05:35 96.9 86 20 157/82 (107) 98 Room Air 09/11/17 21:00 Room Air 09/11/17 18:00 96.5 83 18 119/70 (86) 98 Room Air 09/11/17 09:00 Room Air I & O 09/12/17 07:00 Intake Total 1060 ml Output Total 1350 ml Balance -290 ml Capillary Refill : General Appearance: No Apparent Distress, WD/WN HEENT: Normal ENT Inspection Neck: Normal Inspection Respiratory: No Accessory Muscle Use, No Respiratory Distress Results Lab Laboratory Tests 09/12/17 06:50 Laboratory Tests 09/11/17 11:00: Glucometer 154H 09/11/17 16:49: Glucometer 212H 09/11/17 20:57: Glucometer 178H 09/12/17 06:10: Glucometer 152H 09/12/17 06:50: White Blood Count 10.6, Red Blood Count 2.32L, Hemoglobin 7.1L, Hematocrit 21L, Mean Corpuscular Volume 92, Mean Corpuscular Hemoglobin 31, Mean Corpuscular Hemoglobin Concent 33, Red Cell Distribution Width 14.6H, Platelet Count 380, Mean Platelet Volume 8.3 Microbiology 09/09/17 Urine Culture - Final, Complete Assessment/Plan Assessment/Plan Assess & Plan/Chief Complaint Severe Parkinson. Debility. Diabetes. Osteoarthritis. Weakness.. . 09/10/17. Severe Parkinson. Debility. Diabetes. Anemia. Rechecking anemia. . 09/11/17. Severe Parkinson disease. Debility. Anemia. Diabetes. Hemoglobin 7.1. . 09/12/17. Debility. Anemia. Diabetes. Hemoglobin 7.1 stable Clinical Quality Measures DVT/VTE Risk/Contraindication: Risk Factor Score Per Nursin RFS Level Per Nursing on Admit: 3=High JAMES DE LA CRUZ DO September 12, 2017 08:39
--- NOTE | 2017-09-12 08:43 | PM & R (SOAP) Progress Note ---
Subjective This was a face to face visit with the patient. Date Seen by Provider: September 12, 2017 Time Seen by Provider: 07:45 Subjective/Events-last exam Patient was seen in his room this Am XEay Abdomen ok Meds adjusted for constipation XRay C spine shows severe DJD.Patient Max assist to dependent for for transfers Objective Physician Exam Last Set of Vital Signs Vital Signs Date Time Temp Pulse Resp B/P (MAP) Pulse Ox O2 Delivery O2 Flow Rate FiO2 09/12/17 05:35 96.9 86 20 157/82 (107) 98 Room Air Capillary Refill : I&O Intake and Output 09/12/17 00:00 Intake Total 1020 ml Output Total 1550 ml Balance -530 ml Intake Oral 1020 ml Output Urine Total 1550 ml General: Alert, Cooperative, No Acute Distress HEENT: Atraumatic, PERRLA, EOMI, Mucous Memb Moist/[place], Other (Flat affect Monotone voice) Neck: Supple, No JVD Lungs: Clear to Auscultation Heart: Regular Rate Abdomen: Normal Bowel Sounds, Soft, No Tenderness Extremities: No Edema Neuro: Other (Plus rigidity with dyscoordination and decreased sensation BLES Mild memry loos and impaired Comprehension Gait instability) Results Lab Data Laboratory Tests 09/09/17 11:11: Glucometer 198H 09/09/17 15:00: Urine Color AMBERH, Urine Clarity CLEAR, Urine pH 5, Urine Specific [place] 1.015L, Urine Protein 4+, Urine Glucose (UA) NEGATIVE, Urine Ketones 1+H, Urine Nitrite NEGATIVE, Urine Bilirubin NEGATIVE, Urine Urobilinogen 1, Urine Leukocyte Esterase 1+H, Urine RBC (Auto) 5+H, Urine RBC TNTCH, Urine WBC 10-25H , Urine Crystals NONE, Urine Bacteria FEWH, Urine Casts NONE, Urine Mucus NEGATIVE, Urine Culture Indicated YES 09/09/17 16:26: Glucometer 122H 09/09/17 20:41: Glucometer 138H 09/10/17 04:21: White Blood Count 8.4, Red Blood Count 2.18L, Hemoglobin 6.5*L, Hematocrit 20*L , Mean Corpuscular Volume 93, Mean Corpuscular Hemoglobin 30, Mean Corpuscular Hemoglobin Concent 32, Red Cell Distribution Width 14.6H, Platelet Count 325, Mean Platelet Volume 8.9, Sodium Level 135, Potassium Level 4.8, Chloride Level 110H, Carbon Dioxide Level 19L, Anion Gap 6, Blood Urea Nitrogen 22H, Creatinine 0.66, Estimat Glomerular Filtration Rate > 60, BUN/Creatinine Ratio 33, Glucose Level 145H, Calcium Level 7.8L, Total Bilirubin 0.2, Aspartate Amino Transf (AST/SGOT) 13, Alanine Aminotransferase (ALT/SGPT) < 6, Alkaline Phosphatase 79, B-Type Natriuretic Peptide 111.3H, Total Protein 5.6L, Albumin 2.0L 09/10/17 08:21: Hemoglobin 7.6L, Hematocrit 22L 09/10/17 11:21: Glucometer 229H 09/10/17 16:37: Glucometer 161H 09/10/17 21:34: Glucometer 147H 09/11/17 05:27: White Blood Count 9.2, Red Blood Count 2.30L, Hemoglobin 7.1L, Hematocrit 21L, Mean Corpuscular Volume 92, Mean Corpuscular Hemoglobin 31, Mean Corpuscular Hemoglobin Concent 34, Red Cell Distribution Width 14.3, Platelet Count 340, Mean Platelet Volume 8.7, Neutrophils (%) (Auto) 78H, Lymphocytes (%) (Auto) 14 , Monocytes (%) (Auto) 6, Eosinophils (%) (Auto) 2, Basophils (%) (Auto) 0, Neutrophils # (Auto) 7.2, Lymphocytes # (Auto) 1.3, Monocytes # (Auto) 0.6, Eosinophils # (Auto) 0.2, Basophils # (Auto) 0.0 09/11/17 05:48: Glucometer 147H 09/11/17 11:00: Glucometer 154H 09/11/17 16:49: Glucometer 212H 09/11/17 20:57: Glucometer 178H 09/12/17 06:10: Glucometer 152H 09/12/17 06:50: White Blood Count 10.6, Red Blood Count 2.32L, Hemoglobin 7.1L, Hematocrit 21L, Mean Corpuscular Volume 92, Mean Corpuscular Hemoglobin 31, Mean Corpuscular Hemoglobin Concent 33, Red Cell Distribution Width 14.6H, Platelet Count 380, Mean Platelet Volume 8.3 Microbiology 09/09/17 Urine Culture - Final, Complete Assessment/Plan Assessment and Plan Progressive prk D Chronic constipation DJD C spine ANTONIA Anxiety /depression OA GERD Chronic anemia on replacement Neuropathy Chronic postop back pain HTN better controlled Plan Continue PT/OT/Pain management Adjust meds for constipation as needed (1) Severe possible major neurocognitive disorder due to Parkinson's disease Status: Acute Co-Morbidities that are continuing to impact the rehab process: (include details ) DAISHA MUSTAFA MD September 12, 2017 08:43
[2017-09-12] MEDS: ACETAMINOPHEN 325 MG TABLET/CAPLET (TYLENOL) PO PRN ×2 (09:52→23:55)
--- NOTE | 2017-09-12 11:03 | Physical Therapy Daily Note ---
PT Daily Note-Current Subjective Pt. states he is so tired today. Has pain in all joints when rolled and moved Pain Numeric Pain Scale: 5-Moderate Pain Comment: pain in joints with movement Mental Status Patient Orientation: Mumbles much trouble with articulation and expression, keeps eyes closed, very difficult to understand, encouraged pt. to work with MANAGER INVESTIGATIONS and give full effort as this may help other disciplines understand him better for therapies Transfers Functional [place] Measure 0=Not Assessed/NA 4=Minimal Assistance 1=Total Assistance 5=Supervision or Setup 2=Maximal Assistance 6=Modified [place] 3=Moderate Assistance 7=Complete IndependenceIRFPAI Quality Coding Scale 6 Independent with activity with or without an assistive device 5 Patient requires set up or clean up by helper. Patient completes activity by themselves 4 Supervision or touching assist (CGA). [place] provide cues , steadying assist 3 The helper provides less than half the effort to complete the activity 2 The helper provides more than half the effort to complete the activity 1 Dependent. The helper does all the effort to complete an activity 7 Patient refused to complete or attempt activity 9 The patient did not perform the activity before the current illness or injury 88 Not attempted due to Medical conditions or safety concerns Transfers (B, C, W/C) (FIM): 1 Scootin Rollin Sit to/from Stand: 0 Bed to/from Chair: 1 Car Transfer (QC): 0 lanre TRF with max 2 to roll and position on sling and position in recliner then support with pillows for sitting Exercises Supine Ex: Ankle pumps, Quad Set, Rolling, Heel Slides, Straight leg raise, Hip abd/add Supine Reps: 10 (assist for all movement) Seated Therapy Exercises: Ankle pumps Seated Reps: 10 Treatments Max assist for all mobility, eyes closed, unable to discern 90% of pts verbalization . co Rx with OT for rolling, bed bath , bed [place], LANRE TRF to recliner, Assessment Current Status: Poor Progress dependent for all movement PT Short Term Goals Short Term Goals Time Frame: September 22, 2017 Gait (FIM): 2 Distance (FIM): 3=356-71 ft Gait Assistive Device: FWW Wheelchair (FIM): 4 Wheelchair distance (FIM): 3=150 ft Wheelchair Distance: 30 ft PT It Application Architect Goals It Application Architect Goals PT Prison Goals Time Frame: October 06, 2017 Transfers (B,C,W/C) (FIM): 6 Sit to Lying (QC): 6 Lying-Sitting on Side/Bed(QC): 6 Sit to Stand (QC): 6 Rollin Roll Left to Right (QC): 6 Chair/[id number] Xfer(QC): 6 Car Transfer (QC): 5 Does the Patient Walk: No and Walking Goal IS indicated Gait (FIM): 5 Gait distance (FIM): 2=116-15 ft (household exception) Walk 10 feet (QC): 6 Walk 10ft-Uneven Surface(QC): 6 Walk 50ft with 2 Turns (QC): 6 Walk 150 ft (QC): 88 Gait Assistive Device: FWW Does the Pt use WC or Scooter?: Yes Wheelchair (FIM): 6 Wheelchair distance (FIM): 3=150 ft Wheel 50 feet with 2 turns (QC: 6 Stairs (FIM): 2 # of Steps: 4 1 Step (curb) (QC): 4 4 Steps (QC): 4 12 Steps (QC): 88 Picking up an Object (QC): 88 PT Plan Treatment/Plan Treatment Plan: Continue Plan of Care Treatment Plan: Bed Mobility, Education, Functional Activity [place], Functional Strength, Group Therapy, Gait, Safety, Therapeutic Exercise, Transfers Treatment Duration: October 06, 2017 Frequency: At least 5 of 7 days/Wk (IRF) Estimated Hrs Per Day: 1.5 hours per day Patient and/or Family Agrees t: Yes Time/GCodes Time In: 1000 Time Out: 1100 Total Billed Treatment Time: 60 Total Billed Treatment 1,FA60m G Codes Necessary: JARED Parr CONTAINER WASHER September 12, 2017 11:03
--- NOTE | 2017-09-12 11:33 | Occupational Ther Daily Note ---
OT Current Status-Daily Note Subjective Pt seen in room, up in bed, agreeable to therapy. pt reported he has pain in his neck and shoulders with movement and grimaced during activities. Appearance Pt kept eyes closed during most of tx and was very soft spoken and difficult to understand. He did voice a loud and clear "Thank you" at end of tx Mental Status/Objective Functional [place] Measure 0=Not Assessed/NA 4=Minimal Assistance 1=Total Assistance 5=Supervision or Setup 2=Maximal Assistance 6=Modified [place] 3=Moderate Assistance 7=Complete [place] ADL-Treatment Co-tx today due to complexity of physical limitations and need for skilled interventions from two disciplines, with PT working on transfers, bed mobility and positioning and OT focusing on UE function and ADLs. Much discussion about shower transfers - therapists concerned about being able to position him safely and adequately in wheeled shower chair, even with safety belt. Pt would require Donaldo transfer to shower chair because he is not strong enough to use sit to stand lift. Pt needed max assist x 2 to roll side to side to position bedpan, with no results. He is unable to do hygiene and manage clothing during toileting. Bathing - bed bath done. Pt required max assist x 2 people to roll side to side for washing back and bottom. He was able to help bend knees a little for cleaning talisha area (continues edematous). He was unable to hold washcloth to wash any body parts. He was dependant with upper and lower body dressing, requiring two people to roll to pull pants up and shirt down (he was able to bend knees a little to help with pulling them up). Pt was positioned on Donaldo sling and transferred to lift chair, where he required additional positioning with pillows to prevent leaning to the side and to elevated UEs, which continue to be edematous. Pt requested cold drink but was unable to hold Levy cup to get a drink by himself. He was able to press pressure sensitive call light which was positioned on his chest. Pt left up in recliner, legs elevated, all needs met. Functional [place] Measure 0=Not Assessed/NA 4=Minimal Assistance 1=Total Assistance 5=Supervision or Setup 2=Maximal Assistance 6=Modified [place] 3=Moderate Assistance 7=Complete IndependenceIRFPAI Quality Coding Scale 6 Independent with activity with or without an assistive device 5 Patient requires set up or clean up by helper. Patient completes activity by themselves 4 Supervision or touching assist (CGA). Phyllis provide cues , steadying assist 3 The helper provides less than half the effort to complete the activity 2 The helper provides more than half the effort to complete the activity 1 Dependent. The helper does all the effort to complete an activity 7 Patient refused to complete or attempt activity 9 The patient did not perform the activity before the current illness or injury 88 Not attempted due to Medical conditions or safety concerns Eating (FIM): 1 (Unable to get drink from Levy cup) Grooming (FIM): 1 (Unable to hold wash cloth to wash face or hands) Bathing (FIM): 1 (Unable to hold washcloth. Sponge bath in bed) Upper Body (FIM): 1 (Able to lift R hand to help put it in shirt but not L) Lower Body Dressing (FIM): 1 (Able to bend knees slightly to help with pulling pants up) Transfers (B, C, W/C) (FIM): 1 Education OT Patient Education: Progress toward Goal/Update tx plan, Purpose of tx/ functional activities, Safety issues Teaching Recipient: Patient Teaching Methods: Discussion Response to Teaching: Verbalize Understanding, Unable to Return Demonstration OT Short Term Goals Short Term Goals Time Frame: September 22, 2017 Eating(FIM): 4 Bathing(FIM): 4 Upper Body Dressing(FIM): 4 Toilet/Commode Transfer(FIM): 3 Additional Short Term Goals: 1-Demonstrate ADL Tasks, 2-Verbalize Understanding , 3-ImproveStrength/[place] 1=Demonstrate adherence to instructed precautions during ADL tasks. 2=Patient will verbalize/demonstrate understanding of assistive devices/ modifications for ADL. 3=Patient will improve strength/tolerance for activity to enable patient to perform ADL's. OT Recruiter Coordinator Goals Detention Goals Time Frame: October 06, 2017 Eating (FIM): 5 Eating (QC): 4 Groomin Oral Hygiene (QC): 5 Bathing(FIM): 4 Shower/Bathe Self (QC): 4 Upper Body Dressing(FIM): 5 Upper Body Dressing (QC): 5 Lower Body Dressing(FIM): 5 Lower Body Dressing (QC): 5 On/Off Footwear (QC): 5 Toileting(FIM): 44 Toileting Hygiene (QC): 4 Toilet/Commode Transfer(FIM): 4 Toilet/Commode Transfer (QC): 4 Tub Transfer(FIM): 4 (or shower) Shower Transfer(FIM): 4 (or tub) Comprehension(FIM): 5 Expression (FIM): 4 Social Interaction(FIM): 5 Problem Solving(FIM): 5 Memory(FIM): 5 Additional Goals: 1-Demonstrate ADL Tasks, 2-Verbalize Understanding, 3- ImproveStrength/[place] 1=Demonstrate adherence to instructed precautions during ADL tasks. 2=Patient will verbalize/demonstrate understanding of assistive devices/ modifications for ADL. 3=Patient will improve strength/tolerance for activity to enable patient to perform ADL's. OT Education/Plan Problem List/Assessment Pt would benefit from skilled OT to increase his independence in basic self care and to decrease caregiver burden Discharge Recommendations Plan/Recommendations: Continue POC Treatment Plan/Plan of Care Patient would benefit from OT for education, treatment and training to promote independence in ADL's, mobility, safety and/or upper extremity function for ADL' s. Plan of Care: ADL Retraining, Functional Mobility, Group Exercise/Act as Ind ( education, exercise, socialization, problem solving, funct mobility), Orthotic Fitting/Training, UE Funct Exercise/Act, UE Neuromus Re-Ed/Coord, W/C Management Training Treatment Duration: October 06, 2017 Frequency: At least 5 of 7 days/Wk (IRF) Estimated Hrs Per Day: 1.5 hours per day (1.25 to 1.5) Agreement: Yes Rehab Potential: Poor Time/GCodes Start Time: 10:00 Stop Time: 11:00 Total Time Billed (hr/min): 60 Billed Treatment Time visit, 60 minutes ADL CELIO PERDUE OT September 12, 2017 11:33
--- NOTE | 2017-09-12 13:48 | Speech Therapy Daily Note ---
Speech Daily Progress Note Subjective Date Seen by Provider: September 12, 2017 Time Seen by Provider: 09:30 The patient was laying in bed upon entrance. The patient did not open his eyes to greet the clinician and was hesitant, however, agreeable to participation in the voice treatment session. The patient requires maximum cueing for limited participation in the voice treatment session. The importance of effort and participation was extensively discussed by the clinician, however, no additional comments or agreeability was verbalized by the patient. The patient kept his eyes closed for the entirety of the session. At the close of the session, the patient stated, "I'm done. I'm done for now. I don't want speech." Speech pathology again stressed the importance of improving his communication for increased intelligibility and comprehension of his needs by staff. Speech pathology plans to complete one subsequent session. If absent participation and refusal continues, the patient will be discharged from skilled speech pathology services. Objective Adductor Fold Exercises: Adductor fold exercises were continued and attempted on this date. With maximum clinician verbal cueing and encouragement, the patient participated in limited repetitions of the exercises. The exercises the patient did complete displayed poor effort and intensity. Ten repetitions of each exercise were attempted. Assessment Assessment Current Status: Poor Progress Treatment Plan Continue Plan of Care Communication Comprehension: 5 (The patient requires repetition of instructions and pausing for increased comprehension.) Expression: 3 (Moderate promptin is required. The patient is intelligible less than 50% of the time.) Social Cognition Social Interaction: 5 (Significantly flat affect noted. Intermittent encouragement for continued participation.) Problem Solvin (The patient solves routine problems 75 to 90% of the time.) Memory: 5 (The patient requires prompting only under stressful or unfamiliar condition (less than 10% of the time).) Speech Short Term Goals Short Term Goals Short Term Goals 1. The patient will demonstrate 80% accuracy with oral motor exercises with mild clinician verbal cueing. 2. The patient will display 80% accuracy with intelligibility strategies with mild clinician cueing. Time Frame-STG: Ten Days Speech Extension Service Specialist Goals Extension Service Specialist Goals 1. The patient will demonstrate increased expressive communication for improved intelligibility in known and unknown contexts. Time Frame: Two Weeks Comprehension: 5 Expression: 4 Social Interaction: 5 Problem Solvin Memory: 5 Speech-Plan Treatment Plan Speech Therapy Treatment Plan: Continue Plan of Care Continue skilled speech pathology to target improved intelligibility as the patient's participation allows. Treatment Duration: September 22, 2017 Frequency: 3 times per week Estimated Hrs Per Day: .5 hour per day Rehab Potential: Poor Safety Risks/Education Teaching Recipient: Patient Teaching Methods: Demonstration, Handout, Discussion Response to Teaching: Reinforcement Needed Education Topics Provided: Adductor Fold Exercises Time Speech Therapy Time In: 09:30 Speech Therapy Time Out: 10:00 Total Billed Time: 30 Billed Treatment Time 1, BUTCH HALL September 12, 2017 13:48
--- NOTE | 2017-09-12 14:30 | Therapy Group Daily Note ---
Therapy Daily Group Note Patient Education Topic Other List Below (TRF techniques, rehab orientation ) Exercises UE Exercise, Other (neck shoulder) Other/Notes Pt. attended group PT OT session this date. Pt. transported via lift recline chair and required MAX lift via Donaldo in out bed and chair. Pts were social, introduced selves and shared a bit. Orientation to rehab practices was included in education process. TRF techniques from supine to sit to stand were demonstrated. Seated UE and shoulder and neck exercises from seated position were done by all. This pt. with improved alertness and participated much better physically lifting UEs and turning head with only CGA to min assist. Pt. to bed via Donaldo lift. Pt. with pressure sensitive call hall at hand. Start Time: 13:00 Stop Time: 14:00 Total Billed Treatment Time: 60 Total Billed Treatment 1,GRP JARED ESQUEDA RECEPTION CENTRE MANAGER September 12, 2017 14:30
--- NOTE | 2017-09-12 14:33 | Therapy Group Daily Note ---
Therapy Daily Group Note Patient Education Topic Other List Below (TRF techniques, rehab process) Exercises UE Exercise, Other (neck and shoulder exercises) Other/Notes Pt. attended group PT OT session this date. Pt.to/from mod I in w/c. Pts were social, introduced selves and shared a bit. Orientation to rehab practices was included in education process. TRF techniques from supine to sit to stand were demonstrated. Seated UE and shoulder and neck exercises from seated position were done by all. Pt. to room with hall at hand Start Time: 13:00 Stop Time: 14:00 Total Billed Treatment Time: 60 Total Billed Treatment 1,GRP JARED ESQUEDA CHEMICAL PLANT OPERATOR SUPERVISOR September 12, 2017 14:32
[2017-09-12] MEDS: POLYETHYLENE GLYCOL 17 GM (MIRALAX) PACK PO PRN (18:14)
[2017-09-12 18:20] VITALS: BP 152/84
[2017-09-13] MEDS: SINEMET 25/250 (CARBIDOPA/LEVODOPA) TAB PO SCH ×8 (03:32→23:14)
[2017-09-13] MEDS: ACETAMINOPHEN 325 MG TABLET/CAPLET (TYLENOL) PO PRN ×2 (04:55→20:08)
[2017-09-13] MEDS: FERROUS SULF 325 MG (IRON) TAB PO SCH (06:00)
[2017-09-13] MEDS: metFORMIN 500 MG (GLUCOPHAGE) TAB PO SCH ×2 (06:00→17:56)
[2017-09-13] MEDS: PANTOPRAZOLE 20 MG TABLET (PROTONIX) PO SCH (06:00)
[2017-09-13 06:09] VITALS: BP 175/99
[2017-09-13] MEDS: BISACODYL 5 MG (DULCOLAX) TABLET PO SCH (07:50)
[2017-09-13] MEDS: PROPRANOLOL 20 MG (INDERAL) TABLET PO SCH ×2 (07:50→20:08)
[2017-09-13] MEDS: busPIRone 10 MG (BUSPAR) TAB PO SCH ×2 (07:50→20:08)
[2017-09-13] MEDS: amLODIPine 5 MG (NORVASC) TAB PO SCH (07:50)
[2017-09-13] MEDS: MILK OF MAGNESIA 400 MG/5 ML 30 ML UDC PO PRN (07:50)
[2017-09-13] MEDS: POLYETHYLENE GLYCOL 17 GM (MIRALAX) PACK PO PRN (07:50)
[2017-09-13] MEDS: SENNA W/DOCUSATE (SENOKOT S) TABLET PO SCH ×2 (07:51→20:08)
[2017-09-13] MEDS: NYSTATIN CREAM (MYCOSTATIN) 30 GM TUBE TP SCH ×3 (07:51→20:07)
--- NOTE | 2017-09-13 11:42 | Physical Therapy Daily Note ---
PT Daily Note-Current Subjective Pt laying Supine in bed upon arrival. Pt agrees to Supine Ex for PT tx. Pain Location: No Pain Reported Mental Status Patient Orientation: Person, Place, [place] Transfers Functional [place] Measure 0=Not Assessed/NA 4=Minimal Assistance 1=Total Assistance 5=Supervision or Setup 2=Maximal Assistance 6=Modified [place] 3=Moderate Assistance 7=Complete IndependenceIRFPAI Quality Coding Scale 6 Independent with activity with or without an assistive device 5 Patient requires set up or clean up by helper. Patient completes activity by themselves 4 Supervision or touching assist (CGA). [place] provide cues , steadying assist 3 The helper provides less than half the effort to complete the activity 2 The helper provides more than half the effort to complete the activity 1 Dependent. The helper does all the effort to complete an activity 7 Patient refused to complete or attempt activity 9 The patient did not perform the activity before the current illness or injury 88 Not attempted due to Medical conditions or safety concerns Exercises Supine Ex: Ankle pumps, Quad Set, Heel Slides, Straight leg raise, Hip abd/add Supine Reps: 20 Treatments Pt completes Supine Ex in bed with a couple of short rest breaks. Pt needs assistance with ordering a drink and lunch. Pt resting at end of tx with all needs met, including call light on pt's lap. Assessment Current Status: Good Progress Pt completes Ex as pt is capable. EX is PROM-AAROM. PT Short Term Goals Short Term Goals Time Frame: September 22, 2017 Gait (FIM): 2 Distance (FIM): 8=434-86 ft Gait Assistive Device: FWW Wheelchair (FIM): 4 Wheelchair distance (FIM): 3=150 ft Wheelchair Distance: 30 ft PT Fish And Wildlife Warden Goals Chcf Goals PT Chcf Goals Time Frame: October 06, 2017 Transfers (B,C,W/C) (FIM): 6 Sit to Lying (QC): 6 Lying-Sitting on Side/Bed(QC): 6 Sit to Stand (QC): 6 Rollin Roll Left to Right (QC): 6 Chair/Gtz-vg-Mldcu Xfer(QC): 6 Car Transfer (QC): 5 Does the Patient Walk: No and Walking Goal IS indicated Gait (FIM): 5 Gait distance (FIM): 6=930-69 ft (household exception) Walk 10 feet (QC): 6 Walk 10ft-Uneven Surface(QC): 6 Walk 50ft with 2 Turns (QC): 6 Walk 150 ft (QC): 88 Gait Assistive Device: FWW Does the Pt use WC or Scooter?: Yes Wheelchair (FIM): 6 Wheelchair distance (FIM): 3=150 ft Wheel 50 feet with 2 turns (QC: 6 Stairs (FIM): 2 # of Steps: 4 1 Step (curb) (QC): 4 4 Steps (QC): 4 12 Steps (QC): 88 Picking up an Object (QC): 88 PT Plan Problem List Problem List: Activity Tolerance, Functional Strength, Safety, Bed Mobility Treatment/Plan Treatment Plan: Continue Plan of Care Treatment Plan: Bed Mobility, Education, Functional Activity [place], Functional Strength, Group Therapy, Gait, Safety, Therapeutic Exercise, Transfers Treatment Duration: October 06, 2017 Frequency: At least 5 of 7 days/Wk (IRF) Estimated Hrs Per Day: 1.5 hours per day Patient and/or Family Agrees t: Yes Safety Risks/Education Patient Education: Correct Positioning, Safety Issues Teaching Recipient: Patient Teaching Methods: Discussion Response to Teaching: Verbalize Understanding Time/GCodes Time In: 1010 Time Out: 1035 Total Billed Treatment Time: 25 Total Billed Treatment 1, EX x2 (25m) G Codes Necessary: PAIGE Mixon CHILD NUTRITION DIRECTOR September 13, 2017 11:42
[2017-09-13 18:00] VITALS: BP 146/79
[2017-09-14] MEDS: SINEMET 25/250 (CARBIDOPA/LEVODOPA) TAB PO SCH ×8 (02:17→23:01)
[2017-09-14] MEDS: ACETAMINOPHEN 325 MG TABLET/CAPLET (TYLENOL) PO PRN ×3 (02:17→21:02)
[2017-09-14 05:11] VITALS: BP 161/91
[2017-09-14] MEDS: PANTOPRAZOLE 20 MG TABLET (PROTONIX) PO SCH (06:16)
[2017-09-14] MEDS: metFORMIN 500 MG (GLUCOPHAGE) TAB PO SCH ×2 (06:16→17:42)
[2017-09-14] MEDS: FERROUS SULF 325 MG (IRON) TAB PO SCH (06:16)
[2017-09-14] MEDS: amLODIPine 5 MG (NORVASC) TAB PO SCH (08:28)
[2017-09-14] MEDS: busPIRone 10 MG (BUSPAR) TAB PO SCH ×2 (08:28→21:02)
[2017-09-14] MEDS: SENNA W/DOCUSATE (SENOKOT S) TABLET PO SCH ×2 (08:28→21:02)
[2017-09-14] MEDS: BISACODYL 5 MG (DULCOLAX) TABLET PO SCH (08:28)
[2017-09-14] MEDS: PROPRANOLOL 20 MG (INDERAL) TABLET PO SCH ×2 (08:28→21:01)
[2017-09-14] MEDS: POLYETHYLENE GLYCOL 17 GM (MIRALAX) PACK PO PRN (08:29)
[2017-09-14] MEDS: NYSTATIN CREAM (MYCOSTATIN) 30 GM TUBE TP SCH ×3 (08:29→21:02)
[2017-09-14] MEDS: MILK OF MAGNESIA 400 MG/5 ML 30 ML UDC PO PRN (08:29)
--- NOTE | 2017-09-14 12:41 | Progress Note-Hospitalist ---
Subjective HPI/CC On Admission Date Seen by Provider: September 14, 2017 Time Seen by Provider: 11:30 Subjective/Events-last exam Patient doing well except no BM after multiple meds were given Will need soapsuds enema Has had enemas before due to Parkinson's and chronic constipation Denies any other issues Difficult understand Review of Systems Gastrointestinal: Constipation Neurological: Weakness Objective Exam Vital Signs Vital Signs Date Time Temp Pulse Resp B/P (MAP) Pulse Ox O2 Delivery O2 Flow Rate FiO2 09/14/17 09:00 Room Air 09/14/17 05:11 97.9 87 19 161/91 (114) 98 Capillary Refill : General Appearance: No Apparent Distress, WD/WN, Chronically ill Respiratory: Lungs Clear, Normal Breath Sounds Cardiovascular: Regular Rate, Rhythm, No Edema Gastrointestinal: Normal Bowel Sounds, Non Tender, Soft Neurologic/Psychiatric: Alert, Oriented x3, Depressed Affect Results/Procedures Lab Patient resulted labs reviewed. 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
[2017-09-14 18:28] VITALS: BP 162/85
[2017-09-15] MEDS: SINEMET 25/250 (CARBIDOPA/LEVODOPA) TAB PO SCH ×7 (02:14→21:38)
[2017-09-15 04:18] VITALS: BP 154/81
[2017-09-15] MEDS: FERROUS SULF 325 MG (IRON) TAB PO SCH (05:56)
[2017-09-15] MEDS: metFORMIN 500 MG (GLUCOPHAGE) TAB PO SCH ×2 (05:56→17:20)
[2017-09-15] MEDS: PANTOPRAZOLE 20 MG TABLET (PROTONIX) PO SCH (05:56)
[2017-09-15] MEDS: ACETAMINOPHEN 325 MG TABLET/CAPLET (TYLENOL) PO PRN (05:56)
[2017-09-15 06:04] LABS: MEAN PLATELET VOLUME 8.5 FL (7.4-10.4); RED BLOOD COUNT 2.23 10^6/uL (4.35-5.85); RED CELL DISTRIBUTION WIDTH 14.5 % (10.0-14.5); WHITE BLOOD COUNT 8.2 10^3/uL (4.3-11.0)
[2017-09-15 06:24] LABS: BUN/CREATININE RATIO 31; CARBON DIOXIDE 21 MMOL/L (21-32); CHLORIDE 108 MMOL/L (98-107); CREATININE SERUM 0.68 MG/DL (0.60-1.30); GFR ESTIMATED > 60; GLUCOSE 131 MG/DL (70-105); POTASSIUM 4.8 MMOL/L (3.6-5.0); SODIUM 134 MMOL/L (135-145)
[2017-09-15] MEDS: PROPRANOLOL 20 MG (INDERAL) TABLET PO SCH ×2 (08:29→21:39)
[2017-09-15] MEDS: BISACODYL 5 MG (DULCOLAX) TABLET PO SCH (08:29)
[2017-09-15] MEDS: busPIRone 10 MG (BUSPAR) TAB PO SCH ×2 (08:29→21:39)
[2017-09-15] MEDS: amLODIPine 5 MG (NORVASC) TAB PO SCH (08:29)
[2017-09-15] MEDS: SENNA W/DOCUSATE (SENOKOT S) TABLET PO SCH ×2 (08:29→21:39)
[2017-09-15] MEDS: MILK OF MAGNESIA 400 MG/5 ML 30 ML UDC PO PRN (08:29)
[2017-09-15] MEDS: POLYETHYLENE GLYCOL 17 GM (MIRALAX) PACK PO PRN (08:29)
[2017-09-15] MEDS: NYSTATIN CREAM (MYCOSTATIN) 30 GM TUBE TP SCH ×3 (08:30→21:41)
--- NOTE | 2017-09-15 08:35 | Progress Note (SOAP) ---
Subjective Time Seen by Provider: 08:35 Subjective/Events-last exam Patient having muscle spasms show lives. Patient hemoglobin 7. Hemoglobin and hematocrit stable. Patient receiving iron Objective Exam Vital Signs Date Time Temp Pulse Resp B/P (MAP) Pulse Ox O2 Delivery O2 Flow Rate FiO2 09/15/17 04:18 97.2 90 18 154/81 (105) 98 Room Air 09/14/17 20:08 Room Air 09/14/17 18:28 97.6 89 20 162/85 (110) 98 Room Air 09/14/17 09:00 Room Air I & O 09/15/17 07:00 Intake Total 1620 ml Output Total 1200 ml Balance 420 ml Capillary Refill : General Appearance: No Apparent Distress, WD/WN Results Lab Laboratory Tests 09/14/17 11:19: Glucometer 242H 09/14/17 15:15: Stool Occult Blood Immunoassay NEGATIVE 09/14/17 15:36: Glucometer 160H 09/14/17 22:25: Glucometer 171H 09/15/17 05:17: Glucometer 131H 09/15/17 05:47: White Blood Count 8.2, Red Blood Count 2.23L, Hemoglobin 7.0L, Hematocrit 21L, Mean Corpuscular Volume 92, Mean Corpuscular Hemoglobin 31, Mean Corpuscular Hemoglobin Concent 34, Red Cell Distribution Width 14.5, Platelet Count 342, Mean Platelet Volume 8.5, Sodium Level 134L, Potassium Level 4.8, Chloride Level 108H, Carbon Dioxide Level 21, Anion Gap 5, Blood Urea Nitrogen 21H, Creatinine 0.68, Estimat Glomerular Filtration Rate > 60, BUN/Creatinine Ratio 31, Glucose Level 131H, Calcium Level 8.0L Microbiology 09/09/17 Urine Culture - Final, Complete Assessment/Plan Assessment/Plan Assess & Plan/Chief Complaint Severe Parkinson. Debility. Diabetes. Osteoarthritis. Weakness.. . 09/10/17. Severe Parkinson. Debility. Diabetes. Anemia. Rechecking anemia. . 09/11/17. Severe Parkinson disease. Debility. Anemia. Diabetes. Hemoglobin 7.1. . 09/12/17. Debility. Anemia. Diabetes. Hemoglobin 7.1 stable . 09/15/17. Debility. Severe Parkinson disease. Diabetes under good control. Anemia stabilized area Occult blood of the stools negative Clinical Quality Measures DVT/VTE Risk/Contraindication: Risk Factor Score Per Nursin RFS Level Per Nursing on Admit: 3=High JAMES DE LA CRUZ DO September 15, 2017 08:35
--- NOTE | 2017-09-15 11:25 | Physical Therapy Daily Note ---
PT Daily Note-Current Subjective Patient in bed pre tx, agrees to PT, no complaints of pain. Will be co- treating with OT this morning. Appearance Patient in recliner post tx with legs elevated and on pillows. Patient has nurse call, phone, tray, all needs met. Mental Status Patient Orientation: Person, Place, Situation Transfers Functional [place] Measure 0=Not Assessed/NA 4=Minimal Assistance 1=Total Assistance 5=Supervision or Setup 2=Maximal Assistance 6=Modified [place] 3=Moderate Assistance 7=Complete IndependenceIRFPAI Quality Coding Scale 6 Independent with activity with or without an assistive device 5 Patient requires set up or clean up by helper. Patient completes activity by themselves 4 Supervision or touching assist (CGA). [place] provide cues , steadying assist 3 The helper provides less than half the effort to complete the activity 2 The helper provides more than half the effort to complete the activity 1 Dependent. The helper does all the effort to complete an activity 7 Patient refused to complete or attempt activity 9 The patient did not perform the activity before the current illness or injury 88 Not attempted due to Medical conditions or safety concerns Transfers (B, C, W/C) (FIM): 1 Scootin Rollin Supine to/from Sit: 1 Sit to/from Stand: 2 Bed to/from Chair: 2 Treatments co-treated with OT. Patient bathed in bed and seated. He needed to roll each way several times and completed bathing while sitting. He needed assist with sitting balance during bathing and dressing. He performed a stand pivot transfer with max assist to the recliner. OT worked on bathing, dressing, ADL's , and assisted with transfers. PT worked on bed mobility, transfers, standing. Assessment Current Status: Fair Progress Improved transfers. PT Short Term Goals Short Term Goals Time Frame: September 22, 2017 Gait (FIM): 2 Distance (FIM): 2=879-15 ft Gait Assistive Device: FWW Wheelchair (FIM): 4 Wheelchair distance (FIM): 3=150 ft Wheelchair Distance: 30 ft PT Stemmer Machine Goals Stemmer Machine Goals PT Mcc Goals Time Frame: October 06, 2017 Transfers (B,C,W/C) (FIM): 6 Sit to Lying (QC): 6 Lying-Sitting on Side/Bed(QC): 6 Sit to Stand (QC): 6 Rollin Roll Left to Right (QC): 6 Chair/Trw-yp-Pimmh Xfer(QC): 6 Car Transfer (QC): 5 Does the Patient Walk: No and Walking Goal IS indicated Gait (FIM): 5 Gait distance (FIM): 3=180-81 ft (household exception) Walk 10 feet (QC): 6 Walk 10ft-Uneven Surface(QC): 6 Walk 50ft with 2 Turns (QC): 6 Walk 150 ft (QC): 88 Gait Assistive Device: FWW Does the Pt use WC or Scooter?: Yes Wheelchair (FIM): 6 Wheelchair distance (FIM): 3=150 ft Wheel 50 feet with 2 turns (QC: 6 Stairs (FIM): 2 # of Steps: 4 1 Step (curb) (QC): 4 4 Steps (QC): 4 12 Steps (QC): 88 Picking up an Object (QC): 88 PT Plan Problem List Problem List: Activity Tolerance, Functional Strength, Safety, Balance, Gait, Transfer, Bed Mobility, ROM Treatment/Plan Treatment Plan: Continue Plan of Care Treatment Plan: Bed Mobility, Education, Functional Activity [place], Functional Strength, Group Therapy, Gait, Safety, Therapeutic Exercise, Transfers Treatment Duration: October 06, 2017 Frequency: At least 5 of 7 days/Wk (IRF) Estimated Hrs Per Day: 1.5 hours per day Patient and/or Family Agrees t: Yes Safety Risks/Education Patient Education: Transfer Techniques, Correct Positioning, Safety Issues Teaching Recipient: Patient Teaching Methods: Demonstration, Discussion Response to Teaching: Reinforcement Needed Time/GCodes Time In: 1000 Time Out: 1050 Total Billed Treatment Time: 50 Total Billed Treatment 1 visit FA 50' co-treated for the whole 50 min ABI BARDALES PT September 15, 2017 11:25
--- NOTE | 2017-09-15 11:36 | Occupational Ther Daily Note ---
OT Current Status-Daily Note Subjective Pt seen in room, up in bed, agreeable to OT. Voice stronger today and easier to understand. No pain mentioned. Appearance Alert, cooperative Mental Status/Objective Functional [place] Measure 0=Not Assessed/NA 4=Minimal Assistance 1=Total Assistance 5=Supervision or Setup 2=Maximal Assistance 6=Modified [place] 3=Moderate Assistance 7=Complete [place] ADL-Treatment Co-tx today due to multiple physical limitations and need for skilled intervention from two different therapists. Pt focused on balance, transfers, bed mobility and OT focused on ADLs and UE function. Hemoglobin continues to be low and shower in wheeled shower chair not safe due to decreased trunk control. Pt was able to wash talisha area in front while up in bed. Assist needed for rolling side to side (help with bending knees and reaching forward with arms) for help washing back and bottom. Assist needed with legs, UEs and trunk for supine to sit EOB and pt required physical assist to sit EOB for bathing and dressing. Both hands have active movement today and pt was able to lift R arm to approx 80-90 degrees flex/abd. He was able to hold washcloth with either hand and able to wash parts of each arm but not thorough and not able to get under each arm. He could wash chest and abdomen while sitting with support. Able to lift both feet to help place them in pants legs and able to bridge a little to help with pulling pants up, as well as roll hips side to side. Unable to do slipper socks. Assist to sit EOB in preparation for transfer. Max assist UB dressing ( helped place hands in shirt sleeves). PT transferred pt max assist to recliner, with bed raised up. Pt left up in recliner, arms and trunk supported on pillows, heels floating on pillows, legs elevated, all needs met. Functional [place] Measure 0=Not Assessed/NA 4=Minimal Assistance 1=Total Assistance 5=Supervision or Setup 2=Maximal Assistance 6=Modified [place] 3=Moderate Assistance 7=Complete IndependenceIRFPAI Quality Coding Scale 6 Independent with activity with or without an assistive device 5 Patient requires set up or clean up by helper. Patient completes activity by themselves 4 Supervision or touching assist (CGA). [place] provide cues , steadying assist 3 The helper provides less than half the effort to complete the activity 2 The helper provides more than half the effort to complete the activity 1 Dependent. The helper does all the effort to complete an activity 7 Patient refused to complete or attempt activity 9 The patient did not perform the activity before the current illness or injury 88 Not attempted due to Medical conditions or safety concerns Bathing (FIM): 2 (Sponge bath, in bed or sitting EOB. Two people needed for support when he was sitting EOB. ) Bathing Location: Chest, Abdomen, Perineal Area Upper Body (FIM): 1 (Max assist but two people needed, one to support him while sitting EOB) Lower Body Dressing (FIM): 2 (Max) Education OT Patient Education: Progress toward Goal/Update tx plan, Purpose of tx/ functional activities, Safety issues, Transfer techniques Teaching Recipient: Patient Teaching Methods: Demonstration, Discussion Response to Teaching: Return Demonstration, Reinforcement Needed OT Short Term Goals Short Term Goals Time Frame: September 22, 2017 Eating(FIM): 4 Bathing(FIM): 4 Upper Body Dressing(FIM): 4 Toilet/Commode Transfer(FIM): 3 Additional Short Term Goals: 1-Demonstrate ADL Tasks, 2-Verbalize Understanding , 3-ImproveStrength/[place] 1=Demonstrate adherence to instructed precautions during ADL tasks. 2=Patient will verbalize/demonstrate understanding of assistive devices/ modifications for ADL. 3=Patient will improve strength/tolerance for activity to enable patient to perform ADL's. OT Tool Dresser Goals Tool Dresser Goals Time Frame: October 06, 2017 Eating (FIM): 5 Eating (QC): 4 Groomin Oral Hygiene (QC): 5 Bathing(FIM): 4 Shower/Bathe Self (QC): 4 Upper Body Dressing(FIM): 5 Upper Body Dressing (QC): 5 Lower Body Dressing(FIM): 5 Lower Body Dressing (QC): 5 On/Off Footwear (QC): 5 Toileting(FIM): 44 Toileting Hygiene (QC): 4 Toilet/Commode Transfer(FIM): 4 Toilet/Commode Transfer (QC): 4 Tub Transfer(FIM): 4 (or shower) Shower Transfer(FIM): 4 (or tub) Comprehension(FIM): 5 Expression (FIM): 4 Social Interaction(FIM): 5 Problem Solving(FIM): 5 Memory(FIM): 5 Additional Goals: 1-Demonstrate ADL Tasks, 2-Verbalize Understanding, 3- ImproveStrength/[place] 1=Demonstrate adherence to instructed precautions during ADL tasks. 2=Patient will verbalize/demonstrate understanding of assistive devices/ modifications for ADL. 3=Patient will improve strength/tolerance for activity to enable patient to perform ADL's. OT Education/Plan Problem List/Assessment Pt would benefit from skilled OT to increase his independence in basic self care and to decrease caregiver burden Discharge Recommendations Plan/Recommendations: Continue POC Treatment Plan/Plan of Care Patient would benefit from OT for education, treatment and training to promote independence in ADL's, mobility, safety and/or upper extremity function for ADL' s. Plan of Care: ADL Retraining, Functional Mobility, Group Exercise/Act as Ind ( education, exercise, socialization, problem solving, funct mobility), Orthotic Fitting/Training, UE Funct Exercise/Act, UE Neuromus Re-Ed/Coord, W/C Management Training Treatment Duration: October 06, 2017 Frequency: At least 5 of 7 days/Wk (IRF) Estimated Hrs Per Day: 1.5 hours per day (1.25 to 1.5) Agreement: Yes Rehab Potential: Poor Time/GCodes Start Time: 10:00 Stop Time: 10:50 Total Time Billed (hr/min): 50 Billed Treatment Time visit, 50 minutes ADL, co-tx with PT CELIO PERDUE OT September 15, 2017 11:36
--- NOTE | 2017-09-15 13:33 | Speech Therapy Daily Note ---
Speech Daily Progress Note Subjective Date Seen by Provider: September 15, 2017 Time Seen by Provider: 08:30 The patient was laying in bed upon entrance. The patient greeted the clinician and was agreeable to participation in the voice treatment session, however, did report fatigue from "a long morning." The patient appeared more cooperative on this date, asking the clinician to place him upright in bed because "I think I'll do better for you." No prompts were required from the clinician for participation on this date. Objective Adductor Fold Exercises: Adductor fold exercises were continued on this date. While the patient does not possess adequate upper extremity strength, he continued to try and place effort on his chest by pushing against his hands and the bed. The patient completed each exercise ten times and with increased effort on this date. The patient required consistent prompts for increased breath support, however, no prompts were required for consistent participation. Assessment Assessment Current Status: Fair Progress Treatment Plan Continue Plan of Care Communication Comprehension: 5 (The patient requires repetition of instructions and pausing for increased comprehension.) Expression: 3 (Moderate promptin is required. The patient is intelligible less than 50% of the time.) Social Cognition Social Interaction: 5 (Significantly flat affect noted. Intermittent encouragement for continued participation.) Problem Solvin (The patient solves routine problems 75 to 90% of the time.) Memory: 5 (The patient requires prompting only under stressful or unfamiliar condition (less than 10% of the time).) Speech Short Term Goals Short Term Goals Short Term Goals 1. The patient will demonstrate 80% accuracy with oral motor exercises with mild clinician verbal cueing. PROGRESSING 2. The patient will display 80% accuracy with intelligibility strategies with mild clinician cueing. PROGRESSING Time Frame-STG: Ten Days Speech Intermediate Goals Intermediate Goals 1. The patient will demonstrate increased expressive communication for improved intelligibility in known and unknown contexts. Time Frame: Two Weeks Comprehension: 5 Expression: 4 Social Interaction: 5 Problem Solvin Memory: 5 Speech-Plan Treatment Plan Speech Therapy Treatment Plan: Continue Plan of Care Continue skilled speech pathology treatment for improved vocal intensity and intelligibility. Treatment Duration: September 22, 2017 Frequency: 3 times per week Estimated Hrs Per Day: .5 hour per day Rehab Potential: Poor Safety Risks/Education Teaching Recipient: Patient Teaching Methods: Demonstration, Handout, Discussion Response to Teaching: Verbalize Understanding, Return Demonstration Education Topics Provided: Adductor Fold Exercises Time Speech Therapy Time In: 08:30 Speech Therapy Time Out: 09:00 Total Billed Time: 30 Billed Treatment Time 1, BUTCH HALL September 15, 2017 13:33
--- NOTE | 2017-09-15 14:43 | Therapy Group Daily Note ---
Therapy Daily Group Note Patient Education Topic Other List Below (memory strategies) Exercises LE Seated Exercise, UE Exercise Other/Notes Pt transported via recliner to OT/PT group in [facility]. Group consisted of introductions(name, place living, most embarrassing forgotten event ), socialization, memory strategies, memory activity, UE/LE seated exercises and personal memory strategies. Pt required verbal cues to slow speech to voice introductions. Pt actively listened to peers throughout group and was able to give appropriate facial expressions. Pt was able to use gestures and verbal commands to pick matches in memory activity. Completed UE exercises with B UE and B LE seated exercises. After group, pt lying in bed with call light/phone in reach. All needs met in room. Start Time: 13:00 Stop Time: 14:20 Total Billed Treatment Time: 80 Total Billed Treatment 1-GRP NAINA MEZA September 15, 2017 14:43
[2017-09-15 18:00] VITALS: BP 138/82
--- NOTE | 2017-09-15 19:45 | PM & R (SOAP) Progress Note ---
Subjective This was a face to face visit with the patient. Date Seen by Provider: September 15, 2017 Time Seen by Provider: 19:30 Subjective/Events-last exam Patient was seen in his room this evening Discussed case with RN Patient had a DM with an enema yesterday Patient max aasist for transfers Patents left hand swollen but non tender C/o neck spasm but just repositioned Review of Systems Cardiovascular: Edema Gastrointestinal: Constipation Musculoskeletal: neck pain Neurological: Weakness Objective Physician Exam Last Set of Vital Signs Vital Signs Date Time Temp Pulse Resp B/P (MAP) Pulse Ox O2 Delivery O2 Flow Rate FiO2 09/15/17 18:00 97.9 88 18 138/82 (100) 98 Room Air Capillary Refill : I&O Intake and Output 09/15/17 00:00 Intake Total 1500 ml Output Total 1100 ml Balance 400 ml Intake Oral 1500 ml Output Urine Total 1100 ml # Bowel Movements 2 General: Alert, Cooperative, No Acute Distress HEENT: Atraumatic, PERRLA, EOMI, Mucous Memb Moist/[place], Other (Flat affect Monotone voice) Neck: Supple, No JVD Lungs: Clear to Auscultation Heart: Regular Rate Abdomen: Normal Bowel Sounds, Soft, No Tenderness Extremities: No Edema Neuro: Other (Plus rigidity with dyscoordination and decreased sensation BLES Mild memry loos and impaired Comprehension Gait instability) Results Lab Data Laboratory Tests 09/12/17 20:29: Glucometer 164H 09/13/17 05:45: Glucometer 129H 09/13/17 11:22: Glucometer 149H 09/13/17 15:39: Glucometer 186H 09/13/17 20:05: Glucometer 152H 09/14/17 05:42: Glucometer 136H 09/14/17 11:19: Glucometer 242H 09/14/17 15:15: Stool Occult Blood Immunoassay NEGATIVE 09/14/17 15:36: Glucometer 160H 09/14/17 22:25: Glucometer 171H 09/15/17 05:17: Glucometer 131H 09/15/17 05:47: White Blood Count 8.2, Red Blood Count 2.23L, Hemoglobin 7.0L, Hematocrit 21L, Mean Corpuscular Volume 92, Mean Corpuscular Hemoglobin 31, Mean Corpuscular Hemoglobin Concent 34, Red Cell Distribution Width 14.5, Platelet Count 342, Mean Platelet Volume 8.5, Sodium Level 134L, Potassium Level 4.8, Chloride Level 108H, Carbon Dioxide Level 21, Anion Gap 5, Blood Urea Nitrogen 21H, Creatinine 0.68, Estimat Glomerular Filtration Rate > 60, BUN/Creatinine Ratio 31, Glucose Level 131H, Calcium Level 8.0L 09/15/17 11:13: Glucometer 155H 09/15/17 17:27: Glucometer 153H Microbiology 09/09/17 Urine Culture - Final, Complete Assessment/Plan Assessment and Plan Progressive [place] D Chronic constipation 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
[2017-09-16] MEDS: SINEMET 25/250 (CARBIDOPA/LEVODOPA) TAB PO SCH ×9 (00:10→23:58)
[2017-09-16 05:35] VITALS: BP 133/83
[2017-09-16] MEDS: metFORMIN 500 MG (GLUCOPHAGE) TAB PO SCH ×2 (06:28→17:34)
[2017-09-16] MEDS: FERROUS SULF 325 MG (IRON) TAB PO SCH (06:29)
[2017-09-16] MEDS: PANTOPRAZOLE 20 MG TABLET (PROTONIX) PO SCH (06:31)
--- NOTE | 2017-09-16 08:10 | Progress Note (SOAP) ---
Subjective Time Seen by Provider: 08:10 Subjective/Events-last exam Patient feel he is doing a little better. Patient has some neck pain. Severe Parkinson disease. Debility Objective Exam Vital Signs Date Time Temp Pulse Resp B/P (MAP) Pulse Ox O2 Delivery O2 Flow Rate FiO2 09/16/17 05:35 96.5 79 20 133/83 (100) 99 Room Air 09/15/17 21:00 Room Air 09/15/17 18:00 97.9 88 18 138/82 (100) 98 Room Air 09/15/17 09:00 Room Air I & O 09/16/17 07:00 Intake Total 1390 ml Output Total 1320 ml Balance 70 ml Capillary Refill : General Appearance: No Apparent Distress, WD/WN HEENT: Normal ENT Inspection Results Lab Laboratory Tests 09/15/17 11:13: Glucometer 155H 09/15/17 17:27: Glucometer 153H 09/15/17 21:37: Glucometer 166H 09/16/17 05:27: Glucometer 149H Microbiology 09/09/17 Urine Culture - Final, Complete Assessment/Plan Assessment/Plan Assess & Plan/Chief Complaint Severe Parkinson. Debility. Diabetes. Osteoarthritis. Weakness.. . 09/10/17. Severe Parkinson. Debility. Diabetes. Anemia. Rechecking anemia. . 09/11/17. Severe Parkinson disease. Debility. Anemia. Diabetes. Hemoglobin 7.1. . 09/12/17. Debility. Anemia. Diabetes. Hemoglobin 7.1 stable . 09/15/17. Debility. Severe Parkinson disease. Diabetes under good control. Anemia stabilized area Occult blood of the stools negative. . 09/16/17. Debility. Severe Parkinson disease. Diabetes. Anemia. Patient feel has improved some Clinical Quality Measures DVT/VTE Risk/Contraindication: Risk Factor Score Per Nursin RFS Level Per Nursing on Admit: 3=High JAMES DE LA CRUZ DO September 16, 2017 08:10
[2017-09-16] MEDS: BISACODYL 5 MG (DULCOLAX) TABLET PO SCH (08:55)
[2017-09-16] MEDS: PROPRANOLOL 20 MG (INDERAL) TABLET PO SCH ×2 (08:56→21:07)
[2017-09-16] MEDS: SENNA W/DOCUSATE (SENOKOT S) TABLET PO SCH ×2 (08:56→21:06)
[2017-09-16] MEDS: busPIRone 10 MG (BUSPAR) TAB PO SCH ×2 (08:56→21:06)
[2017-09-16] MEDS: amLODIPine 5 MG (NORVASC) TAB PO SCH (08:56)
[2017-09-16] MEDS: NYSTATIN CREAM (MYCOSTATIN) 30 GM TUBE TP SCH ×3 (08:58→21:12)
--- NOTE | 2017-09-16 09:38 | PM & R (SOAP) Progress Note ---
Subjective This was a face to face visit with the patient. Date Seen by Provider: September 16, 2017 Time Seen by Provider: 08:00 Subjective/Events-last exam Patient was seen in his room this AM Neck spasm better today with better positioning in bed Patient max assist for transfers Review of Systems Neurological: Weakness Objective Physician Exam Last Set of Vital Signs Vital Signs Date Time Temp Pulse Resp B/P (MAP) Pulse Ox O2 Delivery O2 Flow Rate FiO2 09/16/17 09:21 Room Air 09/16/17 05:35 96.5 79 20 133/83 (100) 99 Capillary Refill : I&O Intake and Output 09/16/17 00:00 Intake Total 1380 ml Output Total 1320 ml Balance 60 ml Intake Oral 1380 ml Output Urine Total 1320 ml General: Alert, Cooperative, No Acute Distress HEENT: Atraumatic, PERRLA, EOMI, Mucous Memb Moist/[place], Other (Flat affect Monotone voice) Neck: Supple, No JVD Lungs: Clear to Auscultation Heart: Regular Rate Abdomen: Normal Bowel Sounds, Soft, No Tenderness Extremities: No Edema Neuro: Other (Plus rigidity with dyscoordination and decreased sensation BLES Mild memry loos and impaired Comprehension Gait instability) Results Lab Data Laboratory Tests 09/13/17 11:22: Glucometer 149H 09/13/17 15:39: Glucometer 186H 09/13/17 20:05: Glucometer 152H 09/14/17 05:42: Glucometer 136H 09/14/17 11:19: Glucometer 242H 09/14/17 15:15: Stool Occult Blood Immunoassay NEGATIVE 09/14/17 15:36: Glucometer 160H 09/14/17 22:25: Glucometer 171H 09/15/17 05:17: Glucometer 131H 09/15/17 05:47: White Blood Count 8.2, Red Blood Count 2.23L, Hemoglobin 7.0L, Hematocrit 21L, Mean Corpuscular Volume 92, Mean Corpuscular Hemoglobin 31, Mean Corpuscular Hemoglobin Concent 34, Red Cell Distribution Width 14.5, Platelet Count 342, Mean Platelet Volume 8.5, Sodium Level 134L, Potassium Level 4.8, Chloride Level 108H, Carbon Dioxide Level 21, Anion Gap 5, Blood Urea Nitrogen 21H, Creatinine 0.68, Estimat Glomerular Filtration Rate > 60, BUN/Creatinine Ratio 31, Glucose Level 131H, Calcium Level 8.0L 09/15/17 11:13: Glucometer 155H 09/15/17 17:27: Glucometer 153H 09/15/17 21:37: Glucometer 166H 09/16/17 05:27: Glucometer 149H Microbiology 09/09/17 Urine Culture - Final, Complete Assessment/Plan Assessment and Plan Progressive kenyetta Marino Chronic constipation had BM with enema Chronic anemia with stool neg for OB with HGB at 7 today DJD C spine ANTONIA Anxiety /depression OA GERD Neuropathy Chronic postop back pain HTN controlled Plan Continue PT/OT Team Conference tomoroow Trend HGB-continue Replacement (1) Severe possible major neurocognitive disorder due to Parkinson's disease Status: Chronic Co-Morbidities that are continuing to impact the rehab process: (include details ) DAISHA MUSTAFA MD September 16, 2017 09:38
[2017-09-16] MEDS: ACETAMINOPHEN 325 MG TABLET/CAPLET (TYLENOL) PO PRN ×2 (10:11→17:32)
--- NOTE | 2017-09-16 10:24 | Physical Therapy Daily Note ---
PT Daily Note-Current Subjective Patient in bed pre tx, agrees to PT, no complaints of pain. Will be co- treating with OT this morning. Appearance Patient in bed post tx with nurse call, phone, tray, all needs met. Mental Status Patient Orientation: Person, Place, Situation Transfers Functional [place] Measure 0=Not Assessed/NA 4=Minimal Assistance 1=Total Assistance 5=Supervision or Setup 2=Maximal Assistance 6=Modified [place] 3=Moderate Assistance 7=Complete IndependenceIRFPAI Quality Coding Scale 6 Independent with activity with or without an assistive device 5 Patient requires set up or clean up by helper. Patient completes activity by themselves 4 Supervision or touching assist (CGA). [place] provide cues , steadying assist 3 The helper provides less than half the effort to complete the activity 2 The helper provides more than half the effort to complete the activity 1 Dependent. The helper does all the effort to complete an activity 7 Patient refused to complete or attempt activity 9 The patient did not perform the activity before the current illness or injury 88 Not attempted due to Medical conditions or safety concerns Transfers (B, C, W/C) (FIM): 1 Scootin Rollin Supine to/from Sit: 2 Sit to/from Stand: 2 Bed to/from Chair: 2 Exercises Supine Ex: Ankle pumps, Quad Set, Glut sets Supine Reps: 20 Treatments Co-treated with OT for dressing and shower. Patient rolled with assist several times to get cleaned in bed, supine to sit, and was transferred to a shower chair and bathed, transferred to back to bed and dressed. Treatment involved 2 stand pivot transfers and a lot of bed mobility and rolling. PT worked on bed mobility, transfers, and sitting balance during shower and several lower extremity exercises. OT worked on dressing, bathing, and transfers. Assessment Current Status: Poor Progress no change in mobility PT Short Term Goals Short Term Goals Time Frame: September 22, 2017 Gait (FIM): 2 Distance (FIM): 9=494-46 ft Gait Assistive Device: FWW Wheelchair (FIM): 4 Wheelchair distance (FIM): 3=150 ft Wheelchair Distance: 30 ft PT Jail Goals [place] Management Specialist Goals PT Jail Goals Time Frame: October 06, 2017 Transfers (B,C,W/C) (FIM): 6 Sit to Lying (QC): 6 Lying-Sitting on Side/Bed(QC): 6 Sit to Stand (QC): 6 Rollin Roll Left to Right (QC): 6 Chair/Xmu-po-[place] Xfer(QC): 6 Car Transfer (QC): 5 Does the Patient Walk: No and Walking Goal IS indicated Gait (FIM): 5 Gait distance (FIM): 2=277-55 ft (household exception) Walk 10 feet (QC): 6 Walk 10ft-Uneven Surface(QC): 6 Walk 50ft with 2 Turns (QC): 6 Walk 150 ft (QC): 88 Gait Assistive Device: FWW Does the Pt use WC or Scooter?: Yes Wheelchair (FIM): 6 Wheelchair distance (FIM): 3=150 ft Wheel 50 feet with 2 turns (QC: 6 Stairs (FIM): 2 # of Steps: 4 1 Step (curb) (QC): 4 4 Steps (QC): 4 12 Steps (QC): 88 Picking up an Object (QC): 88 PT Plan Problem List Problem List: Activity Tolerance, Functional Strength, Safety, Balance, Gait, Transfer, Bed Mobility, ROM Treatment/Plan Treatment Plan: Continue Plan of Care Treatment Plan: Bed Mobility, Education, Functional Activity [place], Functional Strength, Group Therapy, Gait, Safety, Therapeutic Exercise, Transfers Treatment Duration: October 06, 2017 Frequency: At least 5 of 7 days/Wk (IRF) Estimated Hrs Per Day: 1.5 hours per day Patient and/or Family Agrees t: Yes Safety Risks/Education Patient Education: Transfer Techniques, Correct Positioning, Safety Issues Teaching Recipient: Patient Teaching Methods: Demonstration, Discussion Response to Teaching: Reinforcement Needed Time/GCodes Time In: 900 Time Out: 1000 Total Billed Treatment Time: 60 Total Billed Treatment 1 visit EX 10' FA 50' ABI BARDALES PT September 16, 2017 10:24
--- NOTE | 2017-09-16 12:56 | Occupational Ther Daily Note ---
OT Current Status-Daily Note Subjective Pt seen in room, up in bed, agreeable to therapy. Voice is stronger today. No pain mentioned except occasional neck and shoulder spasms Appearance Alert, cooperative Mental Status/Objective Functional [place] Measure 0=Not Assessed/NA 4=Minimal Assistance 1=Total Assistance 5=Supervision or Setup 2=Maximal Assistance 6=Modified [place] 3=Moderate Assistance 7=Complete [place] ADL-Treatment Co-tx with PT today, due to complexity and severity of patient's functional limitations, requiring skilled care from two professionals. PT worked on transfers, balance, LEs and OT worked on ADLs and UE function. Max assist two people supine to sit and sit to supine, with one person managing LEs and other managing trunk and UEs. Also did rolling side to side, with difficulty initiating UE reaching to help with roll and able to partially flex knees for rolling. When sitting EOB, pt required min to mod assist to maintain sitting balance in preparation for transfer. Max assist transfer to and from wheeled shower chair, with two people required for safety. Pt transported to shower room and was able to wash chest, abdomen, talisha and thighs. Able to partially wash arms. Shower chair, grab bars, hand held shower. Pt had difficulty maintaining sitting and tended to lean towards his L but could pull up on grab bar on request. Transferred back to EOB for dressing - able to help place hands in sleeve but not get shirt up over head or pull it down. Able to pick feet up to put them into shorts but not pull them up over legs or hips. Unable to do slipper socks. Also worked on sitting balance with weight bearing in UEs, with difficulty fully extending L elbow to sit up straight. Pt left up in bed, heels floated, arms supported on pillows, Isotoner gloves on to help decrease edema, all needs met. Functional [place] Measure 0=Not Assessed/NA 4=Minimal Assistance 1=Total Assistance 5=Supervision or Setup 2=Maximal Assistance 6=Modified [place] 3=Moderate Assistance 7=Complete IndependenceIRFPAI Quality Coding Scale 6 Independent with activity with or without an assistive device 5 Patient requires set up or clean up by helper. Patient completes activity by themselves 4 Supervision or touching assist (CGA). [place] provide cues , steadying assist 3 The helper provides less than half the effort to complete the activity 2 The helper provides more than half the effort to complete the activity 1 Dependent. The helper does all the effort to complete an activity 7 Patient refused to complete or attempt activity 9 The patient did not perform the activity before the current illness or injury 88 Not attempted due to Medical conditions or safety concerns Bathing (FIM): 3 Bathing Location: L Upper Leg, R Upper Leg, Chest, Abdomen, Perineal Area Upper Body (FIM): 2 Lower Body Dressing (FIM): 2 Transfers (B, C, W/C) (FIM): 1 Shower Transfer(FIM): 1 Education OT Patient Education: Progress toward Goal/Update tx plan, Purpose of tx/ functional activities, Transfer techniques Teaching Recipient: Patient Teaching Methods: Discussion Response to Teaching: Verbalize Understanding, Return Demonstration, Reinforcement Needed OT Short Term Goals Short Term Goals Time Frame: September 22, 2017 Eating(FIM): 4 Bathing(FIM): 4 Upper Body Dressing(FIM): 4 Toilet/Commode Transfer(FIM): 3 Additional Short Term Goals: 1-Demonstrate ADL Tasks, 2-Verbalize Understanding , 3-ImproveStrength/[place] 1=Demonstrate adherence to instructed precautions during ADL tasks. 2=Patient will verbalize/demonstrate understanding of assistive devices/ modifications for ADL. 3=Patient will improve strength/tolerance for activity to enable patient to perform ADL's. OT Correction Goals Correction Goals Time Frame: October 06, 2017 Eating (FIM): 5 Eating (QC): 4 Groomin Oral Hygiene (QC): 5 Bathing(FIM): 4 Shower/Bathe Self (QC): 4 Upper Body Dressing(FIM): 5 Upper Body Dressing (QC): 5 Lower Body Dressing(FIM): 5 Lower Body Dressing (QC): 5 On/Off Footwear (QC): 5 Toileting(FIM): 44 Toileting Hygiene (QC): 4 Toilet/Commode Transfer(FIM): 4 Toilet/Commode Transfer (QC): 4 Tub Transfer(FIM): 4 (or shower) Shower Transfer(FIM): 4 (or tub) Comprehension(FIM): 5 Expression (FIM): 4 Social Interaction(FIM): 5 Problem Solving(FIM): 5 Memory(FIM): 5 Additional Goals: 1-Demonstrate ADL Tasks, 2-Verbalize Understanding, 3- ImproveStrength/[place] 1=Demonstrate adherence to instructed precautions during ADL tasks. 2=Patient will verbalize/demonstrate understanding of assistive devices/ modifications for ADL. 3=Patient will improve strength/tolerance for activity to enable patient to perform ADL's. OT Education/Plan Problem List/Assessment Pt would benefit from skilled OT to increase his independence in basic self care and to decrease caregiver burden Discharge Recommendations Plan/Recommendations: Continue POC Treatment Plan/Plan of Care Patient would benefit from OT for education, treatment and training to promote independence in ADL's, mobility, safety and/or upper extremity function for ADL' s. Plan of Care: ADL Retraining, Functional Mobility, Group Exercise/Act as Ind ( education, exercise, socialization, problem solving, funct mobility), Orthotic Fitting/Training, UE Funct Exercise/Act, UE Neuromus Re-Ed/Coord, W/C Management Training Treatment Duration: October 06, 2017 Frequency: At least 5 of 7 days/Wk (IRF) Estimated Hrs Per Day: 1.5 hours per day (1.25 to 1.5) Agreement: Yes Rehab Potential: Poor Time/GCodes Start Time: 09:00 Stop Time: 10:00 Total Time Billed (hr/min): 60 Billed Treatment Time visit, 60 minutes ADL, co-tx with PT CELIO PERDUE OT September 16, 2017 12:56
--- NOTE | 2017-09-16 14:00 | Physical Therapy Daily Note ---
PT Daily Note-Current Subjective Patient in bed pre tx, agrees to PT, no complaints of pain. Appearance Patient in bed post tx with nurse call, phone, tray, all needs met. Mental Status Patient Orientation: Person Transfers Functional [place] Measure 0=Not Assessed/NA 4=Minimal Assistance 1=Total Assistance 5=Supervision or Setup 2=Maximal Assistance 6=Modified [place] 3=Moderate Assistance 7=Complete IndependenceIRFPAI Quality Coding Scale 6 Independent with activity with or without an assistive device 5 Patient requires set up or clean up by helper. Patient completes activity by themselves 4 Supervision or touching assist (CGA). [place] provide cues , steadying assist 3 The helper provides less than half the effort to complete the activity 2 The helper provides more than half the effort to complete the activity 1 Dependent. The helper does all the effort to complete an activity 7 Patient refused to complete or attempt activity 9 The patient did not perform the activity before the current illness or injury 88 Not attempted due to Medical conditions or safety concerns Exercises Supine Ex: Ankle pumps, Quad Set, Glut sets, Heel Slides, Straight leg raise, Hip abd/add Supine Reps: 20 BLE stretching in all planes Treatments functional strengthening and stretching Assessment Current Status: Poor Progress Patient had a lot more trouble speaking and had athetoid movements PT Short Term Goals Short Term Goals Time Frame: September 22, 2017 Gait (FIM): 2 Distance (FIM): 8=594-12 ft Gait Assistive Device: FWW Wheelchair (FIM): 4 Wheelchair distance (FIM): 3=150 ft Wheelchair Distance: 30 ft PT Personal Counselor Goals Personal Counselor Goals PT Residential Goals Time Frame: October 06, 2017 Transfers (B,C,W/C) (FIM): 6 Sit to Lying (QC): 6 Lying-Sitting on Side/Bed(QC): 6 Sit to Stand (QC): 6 Rollin Roll Left to Right (QC): 6 Chair/Ntm-qb-Jfuwo Xfer(QC): 6 Car Transfer (QC): 5 Does the Patient Walk: No and Walking Goal IS indicated Gait (FIM): 5 Gait distance (FIM): 6=687-12 ft (household exception) Walk 10 feet (QC): 6 Walk 10ft-Uneven Surface(QC): 6 Walk 50ft with 2 Turns (QC): 6 Walk 150 ft (QC): 88 Gait Assistive Device: FWW Does the Pt use WC or Scooter?: Yes Wheelchair (FIM): 6 Wheelchair distance (FIM): 3=150 ft Wheel 50 feet with 2 turns (QC: 6 Stairs (FIM): 2 # of Steps: 4 1 Step (curb) (QC): 4 4 Steps (QC): 4 12 Steps (QC): 88 Picking up an Object (QC): 88 PT Plan Problem List Problem List: Activity Tolerance, Functional Strength, Safety, Balance, Gait, Transfer, Bed Mobility, ROM Treatment/Plan Treatment Plan: Continue Plan of Care Treatment Plan: Bed Mobility, Education, Functional Activity [place], Functional Strength, Group Therapy, Gait, Safety, Therapeutic Exercise, Transfers Treatment Duration: October 06, 2017 Frequency: At least 5 of 7 days/Wk (IRF) Estimated Hrs Per Day: 1.5 hours per day Patient and/or Family Agrees t: Yes Safety Risks/Education Patient Education: Correct Positioning, Safety Issues Teaching Recipient: Patient Teaching Methods: Demonstration, Discussion Response to Teaching: Reinforcement Needed Time/GCodes Time In: 1330 Time Out: 1400 Total Billed Treatment Time: 30 Total Billed Treatment 1 visit EX 30' ABI BARDALES PT September 16, 2017 14:00
--- NOTE | 2017-09-16 14:27 | Speech Therapy Daily Note ---
Speech Daily Progress Note Subjective Date Seen by Provider: September 16, 2017 Time Seen by Provider: 08:30 The patient was seated upright in bed upon entrance. The patient displayed increased alertness on this date, as well as, improved participation. The patient was agreeable to participation in the voice exercise session. Objective Adductor Fold Exercises: Adductor fold exercises were continued on this date. While the patient does not possess adequate upper extremity strength, he continued to try and place effort on his chest by pushing against his hands and the bed. The patient completed each exercise ten times and with increased effort on this date. Functional phrases were included on this date with ten repetitions of each. The patient's functional phrases are listed below: 1. Morning. 2. See ya' later. 3. What's for breakfast? 4. What's for lunch? 5. What's for dinner? 6. I need some ice cream, please. 7. Can I have some water? 8. I need a pain pill. 9. Can you adjust my pillows? 10. Thank you. Assessment Assessment Current Status: Fair Progress Treatment Plan Continue Plan of Care Communication Comprehension: 5 (The patient requires repetition of instructions and pausing for increased comprehension.) Expression: 3 (Moderate promptin is required. The patient is intelligible less than 50% of the time.) Social Cognition Social Interaction: 5 (Significantly flat affect noted. Intermittent encouragement for continued participation.) Problem Solvin (The patient solves routine problems 75 to 90% of the time.) Memory: 5 (The patient requires prompting only under stressful or unfamiliar condition (less than 10% of the time).) Speech Short Term Goals Short Term Goals Short Term Goals 1. The patient will demonstrate 80% accuracy with oral motor exercises with mild clinician verbal cueing. PROGRESSING 2. The patient will display 80% accuracy with intelligibility strategies with mild clinician cueing. PROGRESSING Time Frame-STG: Ten Days Speech Group Home Goals Group Home Goals 1. The patient will demonstrate increased expressive communication for improved intelligibility in known and unknown contexts. Time Frame: Two Weeks Comprehension: 5 Expression: 4 Social Interaction: 5 Problem Solvin Memory: 5 Speech-Plan Treatment Plan Speech Therapy Treatment Plan: Continue Plan of Care Continue skilled speech pathology to target improved vocal intensity. Treatment Duration: September 22, 2017 Frequency: 3 times per week Estimated Hrs Per Day: .5 hour per day Rehab Potential: Poor Safety Risks/Education Teaching Recipient: Patient Teaching Methods: Demonstration, Handout, Discussion Response to Teaching: Return Demonstration, Reinforcement Needed Education Topics Provided: Importance of Improved Breath Support Time Speech Therapy Time In: 08:30 Speech Therapy Time Out: 09:00 Total Billed Time: 30 Billed Treatment Time 1, BTUCH HALL September 16, 2017 14:27
--- NOTE | 2017-09-16 14:34 | Occupational Ther Daily Note ---
OT Current Status-Daily Note Subjective Pt seen in room, up in bed, eating lunch. No pain mentioned Appearance Alert, cooperative Mental Status/Objective Functional [place] Measure 0=Not Assessed/NA 4=Minimal Assistance 1=Total Assistance 5=Supervision or Setup 2=Maximal Assistance 6=Modified [place] 3=Moderate Assistance 7=Complete [place] ADL-Treatment Pt reported that he fed himself soup. Built up handled put on fork and he was able to stab most salad items with R hand and feed himself. Bowl slid around on tray so pt provided with Dycem mat for nonskid surface, which worked well. Pt attempted to feed himself finger good with L hand and was successful 1 out of 2 trials. Pt pleased with progress. Pt left up in bed, continuing to slowly feed himself, all needs met. Functional [place] Measure 0=Not Assessed/NA 4=Minimal Assistance 1=Total Assistance 5=Supervision or Setup 2=Maximal Assistance 6=Modified [place] 3=Moderate Assistance 7=Complete IndependenceIRFPAI Quality Coding Scale 6 Independent with activity with or without an assistive device 5 Patient requires set up or clean up by helper. Patient completes activity by themselves 4 Supervision or touching assist (CGA). [place] provide cues , steadying assist 3 The helper provides less than half the effort to complete the activity 2 The helper provides more than half the effort to complete the activity 1 Dependent. The helper does all the effort to complete an activity 7 Patient refused to complete or attempt activity 9 The patient did not perform the activity before the current illness or injury 88 Not attempted due to Medical conditions or safety concerns Eating (FIM): 4 Education OT Patient Education: Modified ADL techniques, Purpose of tx/functional activities, Use of adapted equipment Teaching Recipient: Patient Teaching Methods: Demonstration, Discussion Response to Teaching: Verbalize Understanding, Return Demonstration, Reinforcement Needed OT Short Term Goals Short Term Goals Time Frame: September 22, 2017 Eating(FIM): 4 Bathing(FIM): 4 Upper Body Dressing(FIM): 4 Toilet/Commode Transfer(FIM): 3 Additional Short Term Goals: 1-Demonstrate ADL Tasks, 2-Verbalize Understanding , 3-ImproveStrength/[place] 1=Demonstrate adherence to instructed precautions during ADL tasks. 2=Patient will verbalize/demonstrate understanding of assistive devices/ modifications for ADL. 3=Patient will improve strength/tolerance for activity to enable patient to perform ADL's. OT Utility Bagger Goals Utility Bagger Goals Time Frame: October 06, 2017 Eating (FIM): 5 Eating (QC): 4 Groomin Oral Hygiene (QC): 5 Bathing(FIM): 4 Shower/Bathe Self (QC): 4 Upper Body Dressing(FIM): 5 Upper Body Dressing (QC): 5 Lower Body Dressing(FIM): 5 Lower Body Dressing (QC): 5 On/Off Footwear (QC): 5 Toileting(FIM): 44 Toileting Hygiene (QC): 4 Toilet/Commode Transfer(FIM): 4 Toilet/Commode Transfer (QC): 4 Tub Transfer(FIM): 4 (or shower) Shower Transfer(FIM): 4 (or tub) Comprehension(FIM): 5 Expression (FIM): 4 Social Interaction(FIM): 5 Problem Solving(FIM): 5 Memory(FIM): 5 Additional Goals: 1-Demonstrate ADL Tasks, 2-Verbalize Understanding, 3- ImproveStrength/[place] 1=Demonstrate adherence to instructed precautions during ADL tasks. 2=Patient will verbalize/demonstrate understanding of assistive devices/ modifications for ADL. 3=Patient will improve strength/tolerance for activity to enable patient to perform ADL's. OT Education/Plan Problem List/Assessment Pt would benefit from skilled OT to increase his independence in basic self care and to decrease caregiver burden Discharge Recommendations Plan/Recommendations: Continue POC Treatment Plan/Plan of Care Patient would benefit from OT for education, treatment and training to promote independence in ADL's, mobility, safety and/or upper extremity function for ADL' s. Plan of Care: ADL Retraining, Functional Mobility, Group Exercise/Act as Ind ( education, exercise, socialization, problem solving, funct mobility), Orthotic Fitting/Training, UE Funct Exercise/Act, UE Neuromus Re-Ed/Coord, W/C Management Training Treatment Duration: October 06, 2017 Frequency: At least 5 of 7 days/Wk (IRF) Estimated Hrs Per Day: 1.5 hours per day (1.25 to 1.5) Agreement: Yes Rehab Potential: Poor Time/GCodes Start Time: 13:00 Stop Time: 13:15 Total Time Billed (hr/min): 15 Billed Treatment Time visit, 15 minutes ADL CELIO PERDUE OT September 16, 2017 14:34
[2017-09-16 17:34] VITALS: BP 146/83
[2017-09-16] MEDS: POLYETHYLENE GLYCOL 17 GM (MIRALAX) PACK PO PRN (21:07)
[2017-09-16] MEDS: MILK OF MAGNESIA 400 MG/5 ML 30 ML UDC PO PRN (21:07)
[2017-09-17] MEDS: SINEMET 25/250 (CARBIDOPA/LEVODOPA) TAB PO SCH ×8 (03:04→23:10)
[2017-09-17 05:17] VITALS: BP 159/89
[2017-09-17 05:47] LABS: HEMOGLOBIN 7.3 G/DL (13.3-17.7); MEAN PLATELET VOLUME 8.6 FL (7.4-10.4); RED BLOOD COUNT 2.31 10^6/uL (4.35-5.85); RED CELL DISTRIBUTION WIDTH 14.8 % (10.0-14.5); WHITE BLOOD COUNT 9.2 10^3/uL (4.3-11.0)
[2017-09-17] MEDS: FERROUS SULF 325 MG (IRON) TAB PO SCH (06:13)
[2017-09-17] MEDS: PANTOPRAZOLE 20 MG TABLET (PROTONIX) PO SCH (06:13)
[2017-09-17] MEDS: metFORMIN 500 MG (GLUCOPHAGE) TAB PO SCH ×2 (06:13→17:19)
--- NOTE | 2017-09-17 08:06 | Progress Note (SOAP) ---
Subjective Time Seen by Provider: 08:05 Subjective/Events-last exam Anemia. Severe Parkinson. Debility. Hemoglobin 7.3 stable Objective Exam Vital Signs Date Time Temp Pulse Resp B/P (MAP) Pulse Ox O2 Delivery O2 Flow Rate FiO2 09/17/17 05:17 97.3 82 18 159/89 (112) 99 Room Air 09/16/17 21:00 Room Air 09/16/17 17:34 98.0 89 18 146/83 (104) 100 Room Air 09/16/17 09:21 Room Air I & O 09/17/17 07:00 Intake Total 1060 ml Output Total 1850 ml Balance -790 ml Capillary Refill : General Appearance: No Apparent Distress, WD/WN Results Lab Laboratory Tests 09/16/17 10:58: Glucometer 166H 09/16/17 16:44: Glucometer 155H 09/16/17 20:56: Glucometer 135H 09/17/17 05:01: White Blood Count 9.2, Red Blood Count 2.31L, Hemoglobin 7.3L, Hematocrit 21L, Mean Corpuscular Volume 92, Mean Corpuscular Hemoglobin 32, Mean Corpuscular Hemoglobin Concent 34, Red Cell Distribution Width 14.8H, Platelet Count 384, Mean Platelet Volume 8.6 09/17/17 05:43: Glucometer 142H Microbiology 09/09/17 Urine Culture - Final, Complete Assessment/Plan Assessment/Plan Assess & Plan/Chief Complaint Severe Parkinson. Debility. Diabetes. Osteoarthritis. Weakness.. . 09/10/17. Severe Parkinson. Debility. Diabetes. Anemia. Rechecking anemia. . 09/11/17. Severe Parkinson disease. Debility. Anemia. Diabetes. Hemoglobin 7.1. . 09/12/17. Debility. Anemia. Diabetes. Hemoglobin 7.1 stable . 09/15/17. Debility. Severe Parkinson disease. Diabetes under good control. Anemia stabilized area Occult blood of the stools negative. . 09/16/17. Debility. Severe Parkinson disease. Diabetes. Anemia. Patient feel has improved some. . 09/17/17. Debility. Severe Parkinson disease. Diabetes. Mani an anemia. Difficulty understand patient's words this morning Clinical Quality Measures DVT/VTE Risk/Contraindication: Risk Factor Score Per Nursin RFS Level Per Nursing on Admit: 3=High JAMES DE LA CRUZ DO September 17, 2017 08:06
--- NOTE | 2017-09-17 08:25 | PM & R (SOAP) Progress Note ---
Subjective This was a face to face visit with the patient. Date Seen by Provider: September 17, 2017 Time Seen by Provider: 08:00 Subjective/Events-last exam Patient was seen in his room this AM Patient Max assist for transfers Current labs and therapy notes reviewed Review of Systems Neurological: Weakness Objective Physician Exam Last Set of Vital Signs Vital Signs Date Time Temp Pulse Resp B/P (MAP) Pulse Ox O2 Delivery O2 Flow Rate FiO2 09/17/17 05:17 97.3 82 18 159/89 (112) 99 Room Air Capillary Refill : I&O Intake and Output 09/17/17 00:00 Intake Total 930 ml Output Total 1400 ml Balance -470 ml Intake Oral 930 ml Output Urine Total 1400 ml # Voids 1 General: Alert, Cooperative, No Acute Distress HEENT: Atraumatic, PERRLA, EOMI, Mucous Memb Moist/[place], Other (Flat affect Monotone voice) Neck: Supple, No JVD Lungs: Clear to Auscultation Heart: Regular Rate Abdomen: Normal Bowel Sounds, Soft, No Tenderness Extremities: No Edema Neuro: Other (Plus rigidity with dyscoordination and decreased sensation BLES Mild memry loos and impaired Comprehension Gait instability) Results Lab Data Laboratory Tests 09/14/17 11:19: Glucometer 242H 09/14/17 15:15: Stool Occult Blood Immunoassay NEGATIVE 09/14/17 15:36: Glucometer 160H 09/14/17 22:25: Glucometer 171H 09/15/17 05:17: Glucometer 131H 09/15/17 05:47: White Blood Count 8.2, Red Blood Count 2.23L, Hemoglobin 7.0L, Hematocrit 21L, Mean Corpuscular Volume 92, Mean Corpuscular Hemoglobin 31, Mean Corpuscular Hemoglobin Concent 34, Red Cell Distribution Width 14.5, Platelet Count 342, Mean Platelet Volume 8.5, Sodium Level 134L, Potassium Level 4.8, Chloride Level 108H, Carbon Dioxide Level 21, Anion Gap 5, Blood Urea Nitrogen 21H, Creatinine 0.68, Estimat Glomerular Filtration Rate > 60, BUN/Creatinine Ratio 31, Glucose Level 131H, Calcium Level 8.0L 09/15/17 11:13: Glucometer 155H 09/15/17 17:27: Glucometer 153H 09/15/17 21:37: Glucometer 166H 09/16/17 05:27: Glucometer 149H 09/16/17 10:58: Glucometer 166H 09/16/17 16:44: Glucometer 155H 09/16/17 20:56: Glucometer 135H 09/17/17 05:01: White Blood Count 9.2, Red Blood Count 2.31L, Hemoglobin 7.3L, Hematocrit 21L, Mean Corpuscular Volume 92, Mean Corpuscular Hemoglobin 32, Mean Corpuscular Hemoglobin Concent 34, Red Cell Distribution Width 14.8H, Platelet Count 384, Mean Platelet Volume 8.6 09/17/17 05:43: Glucometer 142H Microbiology 09/09/17 Urine Culture - Final, Complete Assessment/Plan Assessment and Plan Progressive [place] D Chronic constipation Chronic anemia DJD cspine ANTONIA Anxiety/depression OA GERD Neuropahy Chronic postop back pain HTN Plan Continue PT/OT Team Conference later today-See report for full functional update and POC and ELOS (1) Severe possible major neurocognitive disorder due to Parkinson's disease Status: Chronic Co-Morbidities that are continuing to impact the rehab process: (include details ) DAISHA MUSTAFA MD September 17, 2017 08:25
[2017-09-17] MEDS: BISACODYL 5 MG (DULCOLAX) TABLET PO SCH (08:45)
[2017-09-17] MEDS: PROPRANOLOL 20 MG (INDERAL) TABLET PO SCH ×2 (08:45→20:18)
[2017-09-17] MEDS: amLODIPine 5 MG (NORVASC) TAB PO SCH (08:45)
[2017-09-17] MEDS: SENNA W/DOCUSATE (SENOKOT S) TABLET PO SCH ×2 (08:45→20:18)
[2017-09-17] MEDS: busPIRone 10 MG (BUSPAR) TAB PO SCH ×2 (08:45→20:18)
[2017-09-17] MEDS: NYSTATIN CREAM (MYCOSTATIN) 30 GM TUBE TP SCH ×3 (08:56→20:18)
--- NOTE | 2017-09-17 10:35 | Physical Therapy Daily Note ---
PT Daily Note-Current Subjective Patient in bed pre tx, agrees to PT, no complaints of pain. Will be co- treating with OT this morning. Appearance Patient in bed post tx with nurse call, tray, bed alarm on, pillows under arms and legs. Mental Status Patient Orientation: Person, Unable to Assess Transfers Functional [place] Measure 0=Not Assessed/NA 4=Minimal Assistance 1=Total Assistance 5=Supervision or Setup 2=Maximal Assistance 6=Modified [place] 3=Moderate Assistance 7=Complete IndependenceIRFPAI Quality Coding Scale 6 Independent with activity with or without an assistive device 5 Patient requires set up or clean up by helper. Patient completes activity by themselves 4 Supervision or touching assist (CGA). [place] provide cues , steadying assist 3 The helper provides less than half the effort to complete the activity 2 The helper provides more than half the effort to complete the activity 1 Dependent. The helper does all the effort to complete an activity 7 Patient refused to complete or attempt activity 9 The patient did not perform the activity before the current illness or injury 88 Not attempted due to Medical conditions or safety concerns Transfers (B, C, W/C) (FIM): 1 Scootin Rollin Supine to/from Sit: 1 Sit to/from Stand: 1 Bed to/from Chair: 1 used a sit to stand for transfer Treatments Patient was transferred to wheelchair via sit to stand machine. He had poor balance sitting EOB (max assist). He was taken to the therapy gym and stood in standing frame. He stood in standing frame and had a hard time because he leans forward forcefully and can't extend his trunk. He also tends to lean to the left side. Arms were used to try to help support his trunk but seemed to have little effect. After that he was taken back to his room and put back into bed. Co-treated for 50 min with OT. PT worked on bed mobility, transfers, standing, trunk positioning and balance. OT worked on transfers, and UE positioning and exercises while in standing frame. Assessment Current Status: Poor Progress patient has declined in functional mobility PT Short Term Goals Short Term Goals Time Frame: September 22, 2017 Gait (FIM): 2 Distance (FIM): 7=026-57 ft Gait Assistive Device: FWW Wheelchair (FIM): 4 Wheelchair distance (FIM): 3=150 ft Wheelchair Distance: 30 ft PT First Responder Goals Halfway Goals PT First Responder Goals Time Frame: October 06, 2017 Transfers (B,C,W/C) (FIM): 6 Sit to Lying (QC): 6 Lying-Sitting on Side/Bed(QC): 6 Sit to Stand (QC): 6 Rollin Roll Left to Right (QC): 6 Chair/[id number] Xfer(QC): 6 Car Transfer (QC): 5 Does the Patient Walk: No and Walking Goal IS indicated Gait (FIM): 5 Gait distance (FIM): 7=812-47 ft (household exception) Walk 10 feet (QC): 6 Walk 10ft-Uneven Surface(QC): 6 Walk 50ft with 2 Turns (QC): 6 Walk 150 ft (QC): 88 Gait Assistive Device: FWW Does the Pt use WC or Scooter?: Yes Wheelchair (FIM): 6 Wheelchair distance (FIM): 3=150 ft Wheel 50 feet with 2 turns (QC: 6 Stairs (FIM): 2 # of Steps: 4 1 Step (curb) (QC): 4 4 Steps (QC): 4 12 Steps (QC): 88 Picking up an Object (QC): 88 PT Plan Problem List Problem List: Activity Tolerance, Functional Strength, Safety, Balance, Gait, Transfer, Bed Mobility, ROM Treatment/Plan Treatment Plan: Continue Plan of Care Treatment Plan: Bed Mobility, Education, Functional Activity [place], Functional Strength, Group Therapy, Gait, Safety, Therapeutic Exercise, Transfers Treatment Duration: October 06, 2017 Frequency: At least 5 of 7 days/Wk (IRF) Estimated Hrs Per Day: 1.5 hours per day Patient and/or Family Agrees t: Yes Safety Risks/Education Patient Education: Transfer Techniques, Correct Positioning, Safety Issues Teaching Recipient: Patient Teaching Methods: Demonstration, Discussion Response to Teaching: Reinforcement Needed Time/GCodes Time In: 0900 Time Out: 0950 Total Billed Treatment Time: 50 Total Billed Treatment 1 visit FA ABI PRITCHARD PT September 17, 2017 10:34
[2017-09-17] MEDS: ACETAMINOPHEN 325 MG TABLET/CAPLET (TYLENOL) PO PRN (11:10)
--- NOTE | 2017-09-17 11:18 | Speech Therapy Daily Note ---
Speech Daily Progress Note Subjective Date Seen by Provider: September 17, 2017 Time Seen by Provider: 10:15 The patient was seated upright in bed upon entrance. The patient displayed increased alertness on this date, as well as, improved participation. The patient was agreeable to participation in the voice exercise session. Objective Adductor Fold Exercises: Adductor fold exercises were continued on this date. While the patient does not possess adequate upper extremity strength, he continued to try and place effort on his chest by pushing against his hands and the bed. The patient completed each exercise ten times and with increased effort on this date. Functional phrases were included on this date with ten repetitions of each. Assessment Assessment Current Status: Fair Progress Treatment Plan Continue Plan of Care Communication Comprehension: 5 (The patient requires repetition of instructions and pausing for increased comprehension.) Expression: 3 (Moderate promptin is required. The patient is intelligible less than 50% of the time.) Social Cognition Social Interaction: 5 (Significantly flat affect noted. Intermittent encouragement for continued participation.) Problem Solvin (The patient solves routine problems 75 to 90% of the time.) Memory: 5 (The patient requires prompting only under stressful or unfamiliar condition (less than 10% of the time).) Speech Short Term Goals Short Term Goals Short Term Goals 1. The patient will demonstrate 80% accuracy with oral motor exercises with mild clinician verbal cueing. PROGRESSING 2. The patient will display 80% accuracy with intelligibility strategies with mild clinician cueing. PROGRESSING Time Frame-STG: Ten Days Speech Cabinet Worker Goals Cabinet Worker Goals 1. The patient will demonstrate increased expressive communication for improved intelligibility in known and unknown contexts. Time Frame: Two Weeks Comprehension: 5 Expression: 4 Social Interaction: 5 Problem Solvin Memory: 5 Speech-Plan Treatment Plan Speech Therapy Treatment Plan: Continue Plan of Care Continue skilled speech pathology to target improved vocal intensity. Treatment Duration: September 22, 2017 Frequency: 3 times per week Estimated Hrs Per Day: .5 hour per day Rehab Potential: Poor Safety Risks/Education Teaching Recipient: Patient Teaching Methods: Demonstration, Handout, Discussion Response to Teaching: Verbalize Understanding, Return Demonstration Education Topics Provided: Adductor Fold Exercises Time Speech Therapy Time In: 10:15 Speech Therapy Time Out: 10:45 Total Billed Time: 30 Billed Treatment Time 1MADELIN ELIZAB[address] ST September 17, 2017 11:18
--- NOTE | 2017-09-17 12:39 | Occupational Ther Daily Note ---
OT Current Status-Daily Note Subjective Pt seen in room, up in bed, agreeable to therapy. More softspoken today and did not think that he was as strong as yesterday Appearance Alert, cooperative Mental Status/Objective Functional [place] Measure 0=Not Assessed/NA 4=Minimal Assistance 1=Total Assistance 5=Supervision or Setup 2=Maximal Assistance 6=Modified [place] 3=Moderate Assistance 7=Complete [place] ADL-Treatment Functional [place] Measure 0=Not Assessed/NA 4=Minimal Assistance 1=Total Assistance 5=Supervision or Setup 2=Maximal Assistance 6=Modified [place] 3=Moderate Assistance 7=Complete IndependenceIRFPAI Quality Coding Scale 6 Independent with activity with or without an assistive device 5 Patient requires set up or clean up by helper. Patient completes activity by themselves 4 Supervision or touching assist (CGA). [place] provide cues , steadying assist 3 The helper provides less than half the effort to complete the activity 2 The helper provides more than half the effort to complete the activity 1 Dependent. The helper does all the effort to complete an activity 7 Patient refused to complete or attempt activity 9 The patient did not perform the activity before the current illness or injury 88 Not attempted due to Medical conditions or safety concerns Other Treatment Co-tx with PT today due to complex medical conditions and limitations and needs for two different skilled therapies. OT focused on UE function during transfers and while standing and PT focused more on LE function, positioning, transfers. Pt needed assist of two people to move from supine to sit (help with LEs and UEs/trunk), then two people for transfer from EOB to w/c. He was not able to sit unsupported to prepare for use of sit to stand lift. After transfer, pt transported to gym. In parallel bars for sit to stand to place strap for standing frame. Required two person assist, with OT managing UEs, especially L hand. Required two attempts. Pt then positioned up in standing with standing frame. He was unable to support his chest without table and tended to lean toward the left side. He could not independently reposition arms on table. Worked on "pushups" for scapular movement and control as well as neck extension and hand function. He was taken back to room and put back in bed, requiring assist of two people. Pt left up in bed, heels floating on pillows, arms supported on pillows, all needs met. Education OT Patient Education: Progress toward Goal/Update tx plan, Purpose of tx/ functional activities, Transfer techniques Teaching Recipient: Patient Teaching Methods: Demonstration, Discussion Response to Teaching: Verbalize Understanding, Return Demonstration, Reinforcement Needed OT Short Term Goals Short Term Goals Time Frame: September 22, 2017 Eating(FIM): 4 Bathing(FIM): 4 Upper Body Dressing(FIM): 4 Toilet/Commode Transfer(FIM): 3 Additional Short Term Goals: 1-Demonstrate ADL Tasks, 2-Verbalize Understanding , 3-ImproveStrength/[place] 1=Demonstrate adherence to instructed precautions during ADL tasks. 2=Patient will verbalize/demonstrate understanding of assistive devices/ modifications for ADL. 3=Patient will improve strength/tolerance for activity to enable patient to perform ADL's. OT Penitentiary Goals Penitentiary Goals Time Frame: October 06, 2017 Eating (FIM): 5 Eating (QC): 4 Groomin Oral Hygiene (QC): 5 Bathing(FIM): 4 Shower/Bathe Self (QC): 4 Upper Body Dressing(FIM): 5 Upper Body Dressing (QC): 5 Lower Body Dressing(FIM): 5 Lower Body Dressing (QC): 5 On/Off Footwear (QC): 5 Toileting(FIM): 44 Toileting Hygiene (QC): 4 Toilet/Commode Transfer(FIM): 4 Toilet/Commode Transfer (QC): 4 Tub Transfer(FIM): 4 (or shower) Shower Transfer(FIM): 4 (or tub) Comprehension(FIM): 5 Expression (FIM): 4 Social Interaction(FIM): 5 Problem Solving(FIM): 5 Memory(FIM): 5 Additional Goals: 1-Demonstrate ADL Tasks, 2-Verbalize Understanding, 3- ImproveStrength/[place] 1=Demonstrate adherence to instructed precautions during ADL tasks. 2=Patient will verbalize/demonstrate understanding of assistive devices/ modifications for ADL. 3=Patient will improve strength/tolerance for activity to enable patient to perform ADL's. OT Education/Plan Problem List/Assessment Pt would benefit from skilled OT to increase his independence in basic self care and to decrease caregiver burden Discharge Recommendations Plan/Recommendations: Continue POC Treatment Plan/Plan of Care Patient would benefit from OT for education, treatment and training to promote independence in ADL's, mobility, safety and/or upper extremity function for ADL' s. Plan of Care: ADL Retraining, Functional Mobility, Group Exercise/Act as Ind ( education, exercise, socialization, problem solving, funct mobility), Orthotic Fitting/Training, UE Funct Exercise/Act, UE Neuromus Re-Ed/Coord, W/C Management Training Treatment Duration: October 06, 2017 Frequency: At least 5 of 7 days/Wk (IRF) Estimated Hrs Per Day: 1.5 hours per day (1.25 to 1.5) Agreement: Yes Rehab Potential: Poor Time/GCodes Start Time: 09:00 Stop Time: 09:50 Total Time Billed (hr/min): 50 Billed Treatment Time visit, 50 minutes functional activity, co-tx with PT CELIO PERDUE OT September 17, 2017 12:38
--- NOTE | 2017-09-17 15:19 | Therapy Group Daily Note ---
Therapy Daily Group Note Patient Education Topic Other List Below Exercises LE Seated Exercise, UE Exercise Other/Notes Pt attended OT/PT group this pm via w/c. Pt introduced himself to group for socialization. Pt able to feed himself ice cream using built up utensil during group while seated at table. Education included importance of handwashing and its role in disease prevention. Pt appropriately participated in discussion related to memory words and memory strategies. Pt participated in UE/LE seated exercises to tolerance. Pt returned to room, in bed with needs met after session. Start Time: 13:00 Stop Time: 14:00 Total Billed Treatment Time: 60 Total Billed Treatment 1 visit, GRP(60minutes) MAGUE SAM OT September 17, 2017 15:19
[2017-09-17 18:15] VITALS: BP 110/70
[2017-09-18] MEDS: SINEMET 25/250 (CARBIDOPA/LEVODOPA) TAB PO SCH ×8 (02:24→23:07)
[2017-09-18 05:23] VITALS: BP 129/76
[2017-09-18] MEDS: PANTOPRAZOLE 20 MG TABLET (PROTONIX) PO SCH (06:04)
[2017-09-18] MEDS: FERROUS SULF 325 MG (IRON) TAB PO SCH (06:04)
[2017-09-18] MEDS: metFORMIN 500 MG (GLUCOPHAGE) TAB PO SCH ×2 (06:05→17:41)
--- NOTE | 2017-09-18 08:09 | Progress Note (SOAP) ---
Subjective Time Seen by Provider: 08:05 Subjective/Events-last exam Patient feeling better and doing better. Patient just complaining of shoulder pain. Patient speech is better today Objective Exam Vital Signs Date Time Temp Pulse Resp B/P (MAP) Pulse Ox O2 Delivery O2 Flow Rate FiO2 09/18/17 05:23 97.1 81 18 129/76 (93) 98 Room Air 09/17/17 21:01 Room Air 09/17/17 18:15 96.9 103 20 110/70 (83) 99 Room Air 09/17/17 08:28 Room Air I & O 09/18/17 07:00 Intake Total 1400 ml Output Total 860 ml Balance 540 ml Capillary Refill : General Appearance: No Apparent Distress, WD/WN HEENT: Normal ENT Inspection Results Lab Laboratory Tests 09/17/17 10:45: Glucometer 212H 09/17/17 17:30: Glucometer 213H 09/17/17 20:15: Glucometer 163H 09/18/17 04:58: Glucometer 150H Microbiology 09/09/17 Urine Culture - Final, Complete Assessment/Plan Assessment/Plan Assess & Plan/Chief Complaint Severe Parkinson. Debility. Diabetes. Osteoarthritis. Weakness.. . 09/10/17. Severe Parkinson. Debility. Diabetes. Anemia. Rechecking anemia. . 09/11/17. Severe Parkinson disease. Debility. Anemia. Diabetes. Hemoglobin 7.1. . 09/12/17. Debility. Anemia. Diabetes. Hemoglobin 7.1 stable . 09/15/17. Debility. Severe Parkinson disease. Diabetes under good control. Anemia stabilized area Occult blood of the stools negative. . 09/16/17. Debility. Severe Parkinson disease. Diabetes. Anemia. Patient feel has improved some. . 09/17/17. Debility. Severe Parkinson disease. Diabetes. Mani an anemia. Difficulty understand patient's words this morning. . 09/18/17. Debility. Severe Parkinson disease. Anemia stable. Diabetes good. Patient speaking much better today. Patient complaining of some upper back discomfort Clinical Quality Measures DVT/VTE Risk/Contraindication: Risk Factor Score Per Nursin RFS Level Per Nursing on Admit: 3=High JAMES DE LA CRUZ DO September 18, 2017 08:09
--- NOTE | 2017-09-18 08:38 | PM & R (SOAP) Progress Note ---
Subjective This was a face to face visit with the patient. Date Seen by Provider: September 18, 2017 Time Seen by Provider: 08:10 Subjective/Events-last exam Patient was seen in his room this AM Patient dependent for transfers SW assisting patient and family with probable placement at local SNU in [facility]. Review of Systems Neurological: Weakness Objective Physician Exam Last Set of Vital Signs Vital Signs Date Time Temp Pulse Resp B/P (MAP) Pulse Ox O2 Delivery O2 Flow Rate FiO2 09/18/17 05:23 97.1 81 18 129/76 (93) 98 Room Air Capillary Refill : I&O Intake and Output 09/18/17 00:00 Intake Total 1160 ml Output Total 1510 ml Balance -350 ml Intake Oral 1160 ml Output Urine Total 1510 ml General: Alert, Cooperative, No Acute Distress HEENT: Atraumatic, PERRLA, EOMI, Mucous Memb Moist/Angus, Other (Flat affect Monotone voice) Neck: Supple, No JVD Lungs: Clear to Auscultation Heart: Regular Rate Abdomen: Normal Bowel Sounds, Soft, No Tenderness Extremities: No Edema Neuro: Other (Plus rigidity with dyscoordination and decreased sensation BLES Mild memry loos and impaired Comprehension Gait instability) Results Lab Data Laboratory Tests 09/15/17 11:13: Glucometer 155H 09/15/17 17:27: Glucometer 153H 09/15/17 21:37: Glucometer 166H 09/16/17 05:27: Glucometer 149H 09/16/17 10:58: Glucometer 166H 09/16/17 16:44: Glucometer 155H 09/16/17 20:56: Glucometer 135H 09/17/17 05:01: White Blood Count 9.2, Red Blood Count 2.31L, Hemoglobin 7.3L, Hematocrit 21L, Mean Corpuscular Volume 92, Mean Corpuscular Hemoglobin 32, Mean Corpuscular Hemoglobin Concent 34, Red Cell Distribution Width 14.8H, Platelet Count 384, Mean Platelet Volume 8.6 09/17/17 05:43: Glucometer 142H 09/17/17 10:45: Glucometer 212H 09/17/17 17:30: Glucometer 213H 09/17/17 20:15: Glucometer 163H 09/18/17 04:58: Glucometer 150H Microbiology 09/09/17 Urine Culture - Final, Complete Assessment/Plan Assessment and Plan Progressive Park D Chronic constipation Chronic anemia DJD C spine ANTONIA Anxiety /depression OA Gerd Neuropathy Chronic postop back pain HTN controlled Plan Continue PT/OT Team Conference held yesterday-See report for full functional update and POC and ELOS SW to assist patient and his family with placement for the patient at a local SNU in his home community Will f/u with SW re details (1) Severe possible major neurocognitive disorder due to Parkinson's disease Status: Chronic Co-Morbidities that are continuing to impact the rehab process: (include details ) DAISHA MUSTAFA MD September 18, 2017 8:38 am
[2017-09-18] MEDS: amLODIPine 5 MG (NORVASC) TAB PO SCH (08:45)
[2017-09-18] MEDS: SENNA W/DOCUSATE (SENOKOT S) TABLET PO SCH ×2 (08:46→20:41)
[2017-09-18] MEDS: ACETAMINOPHEN 325 MG TABLET/CAPLET (TYLENOL) PO PRN (08:47)
[2017-09-18] MEDS: PROPRANOLOL 20 MG (INDERAL) TABLET PO SCH ×2 (08:47→20:41)
[2017-09-18] MEDS: busPIRone 10 MG (BUSPAR) TAB PO SCH ×2 (08:56→20:41)
[2017-09-18] MEDS: BISACODYL 5 MG (DULCOLAX) TABLET PO SCH (08:56)
[2017-09-18] MEDS: NYSTATIN CREAM (MYCOSTATIN) 30 GM TUBE TP SCH ×3 (08:57→20:42)
--- NOTE | 2017-09-18 10:30 | Physical Therapy Daily Note ---
PT Daily Note-Current Subjective Patient in bed pre tx, agrees to PT, will be co-treating with OT this morning. Patient has no complaints of pain at rest. Appearance Patient in recliner post tx with nurse call, joanna, all needs met. Legs elevated and on pillows. Mental Status Patient Orientation: Person, Place, Situation Transfers Functional [place] Measure 0=Not Assessed/NA 4=Minimal Assistance 1=Total Assistance 5=Supervision or Setup 2=Maximal Assistance 6=Modified [place] 3=Moderate Assistance 7=Complete IndependenceIRFPAI Quality Coding Scale 6 Independent with activity with or without an assistive device 5 Patient requires set up or clean up by helper. Patient completes activity by themselves 4 Supervision or touching assist (CGA). [place] provide cues , steadying assist 3 The helper provides less than half the effort to complete the activity 2 The helper provides more than half the effort to complete the activity 1 Dependent. The helper does all the effort to complete an activity 7 Patient refused to complete or attempt activity 9 The patient did not perform the activity before the current illness or injury 88 Not attempted due to Medical conditions or safety concerns Transfers (B, C, W/C) (FIM): 1 Scootin Rollin Supine to/from Sit: 1 Sit to/from Stand: 2 Bed to/from Chair: 2 improved sit to stand and stand pivot transfers, no change in bed mobility or rolling or supine to sit Treatments Patient was dressed in bed and transferred to wheelchair via standing machine, taken to therapy gym and stand pivot transfer to the therapy table and worked on sitting balance (mod A) and reaching, layed down and lower extremity stretching/ROM in all planes, sat back up and stand pivot back to wheelchair and taken to his room, standing machine transfer to recliner. PT worked on bed mobility, rolling, dressing, transfers, sitting balance, LE ROM. OT worked on rolling, dressing, UE ROM, arm positioning during sitting balance. Co-treat for the whole 60 min Assessment Current Status: Poor Progress patient was able to help enough with sit to stand and stand pivot transfer to be considered max assist PT Short Term Goals Short Term Goals Time Frame: September 22, 2017 Gait (FIM): 2 Distance (FIM): 3=781-69 ft Gait Assistive Device: FWW Wheelchair (FIM): 4 Wheelchair distance (FIM): 3=150 ft Wheelchair Distance: 30 ft PT Burlap Bag Sewer Goals Correction Goals PT Burlap Bag Sewer Goals Time Frame: October 06, 2017 Transfers (B,C,W/C) (FIM): 6 Sit to Lying (QC): 6 Lying-Sitting on Side/Bed(QC): 6 Sit to Stand (QC): 6 Rollin Roll Left to Right (QC): 6 Chair/Ciw-ef-Aojbj Xfer(QC): 6 Car Transfer (QC): 5 Does the Patient Walk: No and Walking Goal IS indicated Gait (FIM): 5 Gait distance (FIM): 1=482-31 ft (household exception) Walk 10 feet (QC): 6 Walk 10ft-Uneven Surface(QC): 6 Walk 50ft with 2 Turns (QC): 6 Walk 150 ft (QC): 88 Gait Assistive Device: FWW Does the Pt use WC or Scooter?: Yes Wheelchair (FIM): 6 Wheelchair distance (FIM): 3=150 ft Wheel 50 feet with 2 turns (QC: 6 Stairs (FIM): 2 # of Steps: 4 1 Step (curb) (QC): 4 4 Steps (QC): 4 12 Steps (QC): 88 Picking up an Object (QC): 88 PT Plan Problem List Problem List: Activity Tolerance, Functional Strength, Safety, Balance, Gait, Transfer, Bed Mobility, ROM Treatment/Plan Treatment Plan: Continue Plan of Care Treatment Plan: Bed Mobility, Education, Functional Activity [place], Functional Strength, Group Therapy, Gait, Safety, Therapeutic Exercise, Transfers Treatment Duration: October 06, 2017 Frequency: At least 5 of 7 days/Wk (IRF) Estimated Hrs Per Day: 1.5 hours per day Patient and/or Family Agrees t: Yes Safety Risks/Education Patient Education: Transfer Techniques, Correct Positioning, Safety Issues Teaching Recipient: Patient Teaching Methods: Demonstration, Discussion Response to Teaching: Reinforcement Needed Time/GCodes Time In: 0900 Time Out: 1000 Total Billed Treatment Time: 60 Total Billed Treatment 1 visit EX 15' FA 45' ABI BARDALES PT September 18, 2017 10:30
--- NOTE | 2017-09-18 10:55 | Speech Therapy Daily Note ---
Speech Daily Progress Note Subjective Date Seen by Provider: September 18, 2017 Time Seen by Provider: 10:15 The patient was seated in the recliner upon entrance. The patient was unable to remain in the recliner due to discomfort, therefore, was transferred to upright in bed with the aid of the underwriting assistant and the [id number]. The patient was agreeable to participation in the voice treatment session, as well as, demonstrated increased humor and interaction with the clinician on this date. Objective Adductor Fold Exercises: Adductor fold exercises were continued on this date. The patient completed each exercise ten times and with increased effort on this date. The patient additionally participated in informal conversation to improve functional breath support and volume. Frequent cues were required by the patient to reduce his rate of speech, as well as, increase his volume and breath support level. Assessment Assessment Current Status: Good Progress Treatment Plan Continue Plan of Care Communication Comprehension: 5 (The patient requires repetition of instructions and pausing for increased comprehension.) Expression: 3 (Moderate promptin is required. The patient is intelligible less than 50% of the time.) Social Cognition Social Interaction: 5 (Significantly flat affect noted. Intermittent encouragement for continued participation.) Problem Solvin (The patient solves routine problems 75 to 90% of the time.) Memory: 5 (The patient requires prompting only under stressful or unfamiliar condition (less than 10% of the time).) Speech Short Term Goals Short Term Goals Short Term Goals 1. The patient will demonstrate 80% accuracy with oral motor exercises with mild clinician verbal cueing. PROGRESSING 2. The patient will display 80% accuracy with intelligibility strategies with mild clinician cueing. PROGRESSING Time Frame-STG: Ten Days Speech Pony Rougher Goals Pony Rougher Goals 1. The patient will demonstrate increased expressive communication for improved intelligibility in known and unknown contexts. Time Frame: Two Weeks Comprehension: 5 Expression: 4 Social Interaction: 5 Problem Solvin Memory: 5 Speech-Plan Treatment Plan Speech Therapy Treatment Plan: Continue Plan of Care Continue skilled speech pathology to target functional improvement of volume levels. Treatment Duration: September 22, 2017 Frequency: 3 times per week Estimated Hrs Per Day: .5 hour per day Rehab Potential: Poor Safety Risks/Education Teaching Recipient: Patient Teaching Methods: Demonstration, Handout, Discussion Response to Teaching: Return Demonstration Education Topics Provided: Adductor Fold Exercises Time Speech Therapy Time In: 10:15 Speech Therapy Time Out: 10:45 Total Billed Time: 30 Billed Treatment Time 1, BUTCH HALL September 18, 2017 10:55
--- NOTE | 2017-09-18 11:19 | Occupational Ther Daily Note ---
OT Current Status-Daily Note Subjective Pt seen in room, up in bed, agreeable to therapy. No pain mentioned but he did say that using the sit to stand for transfers squeezed his chest. It was explained that it is more therapeutic for his leg strength and balance that using a Donaldo sling and he verbalized understanding. Appearance Alert, cooperative Mental Status/Objective Functional [place] Measure 0=Not Assessed/NA 4=Minimal Assistance 1=Total Assistance 5=Supervision or Setup 2=Maximal Assistance 6=Modified [place] 3=Moderate Assistance 7=Complete [place] ADL-Treatment Functional [place] Measure 0=Not Assessed/NA 4=Minimal Assistance 1=Total Assistance 5=Supervision or Setup 2=Maximal Assistance 6=Modified [place] 3=Moderate Assistance 7=Complete IndependenceIRFPAI Quality Coding Scale 6 Independent with activity with or without an assistive device 5 Patient requires set up or clean up by helper. Patient completes activity by themselves 4 Supervision or touching assist (CGA). [place] provide cues , steadying assist 3 The helper provides less than half the effort to complete the activity 2 The helper provides more than half the effort to complete the activity 1 Dependent. The helper does all the effort to complete an activity 7 Patient refused to complete or attempt activity 9 The patient did not perform the activity before the current illness or injury 88 Not attempted due to Medical conditions or safety concerns Upper Body (FIM): 1 (two people needed when sitting EOB) Lower Body Dressing (FIM): 2 (Helped waste picker feet and bend knees and helped roll hips) Transfers (B, C, W/C) (FIM): 1 (Sit to stand) Other Treatment Co-tx with PT due to complexity of physical limitations and need for skilled interventions from two different professionals. OT worked on UE function, transfers and ADLs and PT worked on balance, LEs and transfers as well. Pt helped to lift feet to put them into shorts (better with R leg) and helped bend knees for them to be pulled up. He needed help to roll side to side for pants to be pulled up over hips and was not able to initiate shoulder movement to help with rolling. Dependant with socks. Pt demonstrated initiation of leg movement to start process of supine to sit. He needed help to complete moving his legs off the bed and to lift trunk - he is able to provide almost no UE assistance. Two people needed to sit EOB to put shirt on. Two people needed to transfer him with sit to stand lift to / due to decreased sitting balance. Once up in w/c, pt transported to gym and transferred by PT to treatment table. Worked on sitting balance (mod assist) with weight bearing through UEs and also did bilat UE stretching while supine while PT did LE stretching. Pt is very tight across anterior shoulders and in combined joint extension. Pt transferred back to [facility], then moved to recliner, using sit to stand lift. Pt left up in recliner, arms supported and elevated on pillows, heels floating, all needs met. Education OT Patient Education: Modified ADL techniques, Progress toward Goal/Update tx plan, Purpose of tx/functional activities, Transfer techniques Teaching Recipient: Patient Teaching Methods: Discussion Response to Teaching: Verbalize Understanding, Return Demonstration OT Short Term Goals Short Term Goals Time Frame: September 22, 2017 Eating(FIM): 4 Bathing(FIM): 4 Upper Body Dressing(FIM): 4 Toilet/Commode Transfer(FIM): 3 Additional Short Term Goals: 1-Demonstrate ADL Tasks, 2-Verbalize Understanding , 3-ImproveStrength/[place] 1=Demonstrate adherence to instructed precautions during ADL tasks. 2=Patient will verbalize/demonstrate understanding of assistive devices/ modifications for ADL. 3=Patient will improve strength/tolerance for activity to enable patient to perform ADL's. OT Longterm Goals Longterm Goals Time Frame: October 06, 2017 Eating (FIM): 5 Eating (QC): 4 Groomin Oral Hygiene (QC): 5 Bathing(FIM): 4 Shower/Bathe Self (QC): 4 Upper Body Dressing(FIM): 5 Upper Body Dressing (QC): 5 Lower Body Dressing(FIM): 5 Lower Body Dressing (QC): 5 On/Off Footwear (QC): 5 Toileting(FIM): 44 Toileting Hygiene (QC): 4 Toilet/Commode Transfer(FIM): 4 Toilet/Commode Transfer (QC): 4 Tub Transfer(FIM): 4 (or shower) Shower Transfer(FIM): 4 (or tub) Comprehension(FIM): 5 Expression (FIM): 4 Social Interaction(FIM): 5 Problem Solving(FIM): 5 Memory(FIM): 5 Additional Goals: 1-Demonstrate ADL Tasks, 2-Verbalize Understanding, 3- ImproveStrength/[place] 1=Demonstrate adherence to instructed precautions during ADL tasks. 2=Patient will verbalize/demonstrate understanding of assistive devices/ modifications for ADL. 3=Patient will improve strength/tolerance for activity to enable patient to perform ADL's. OT Education/Plan Problem List/Assessment Pt would benefit from skilled OT to increase his independence in basic self care and to decrease caregiver burden Discharge Recommendations Plan/Recommendations: Continue POC Treatment Plan/Plan of Care Patient would benefit from OT for education, treatment and training to promote independence in ADL's, mobility, safety and/or upper extremity function for ADL' s. Plan of Care: ADL Retraining, Functional Mobility, Group Exercise/Act as Ind ( education, exercise, socialization, problem solving, funct mobility), Orthotic Fitting/Training, UE Funct Exercise/Act, UE Neuromus Re-Ed/Coord, W/C Management Training Treatment Duration: October 06, 2017 Frequency: At least 5 of 7 days/Wk (IRF) Estimated Hrs Per Day: 1.5 hours per day (1.25 to 1.5) Agreement: Yes Rehab Potential: Poor Time/GCodes Start Time: 09:00 Stop Time: 10:00 Total Time Billed (hr/min): 60 Billed Treatment Time visit, 60 minutes functional activity CELIO PERDUE OT September 18, 2017 11:19
--- NOTE | 2017-09-18 13:45 | Behavioral Health Consult ---
Consult- Consult Date Seen by Provider: September 17, 2017 Time Seen by Provider: 11:00 Patient: Ajay Corey : 56 Date: 09-17-17 Referral: Dr. Ahn [facility]#: [id number] CPT Code: 29680 Psychodiagnostic Examination 35105 Interactive Complexity, 1 unit(s) Start Time: 11:00 am Stop Time: 1:00 pm Chief Complaint: depression, Parkinsons, bed bound Referral: Ajay Corey is a 57-year-old, , male referred by Dr. Ahn for a clinical diagnostic assessment. Information for this evaluation was gathered from self-report, clinical observation, hospital nurse, and medical records. Presenting Problem: Therapist spoke with Kaela nurse who stated he will be going to a intermediate once he is discharged from the hospital and he does not want to do that. She reported he has stated that it sucks in reference to moving. She denied him appearing depressed, making comments about feeling depressed, or any statements about wanting to harm himself. She reported he is and he and his had been arguing at the hospital over the weekend. She reported she is unclear about the dynamic of the marriage, but the arguing did not seem to be abnormal for them. Ajay was seen alone and denied feeling depressed or symptoms of depression, such as loss of pleasure, worthlessness, difficulty sleeping, thoughts of or suicide, or guilt. He reported a weight loss of 100 pounds since his Parkinson s diagnosis, but stated his weight has not changed in over a year. When therapist began asking him questions, he commented that his would want to be present and was told therapist would like to initially speak with him alone, but that if she was in the hospital she could speak with therapist after they were done. He stated she was not at the hospital but at home in [place] and he agreed to speak with therapist alone. He reported feeling tense due to him and his possibly losing their home. He denied any panic attack symptoms or anxiety about anything else. He was asked about going to a intermediate after being discharged and became tearful but stated he knew that was the plan and that he and his talked about it. Ajay and therapist talked about it for a few minutes and he stated he was apprehensive to move there but understood the reasoning. Observations/Mental Status: Ajay was seen on the rehab floor and was alone. Overall appearance was unkempt. Ajay appeared to be a fair historian. Observed gait and gross motor movements indicated no clinically significant difficulties. Kaela general approach to the evaluation indicated interest. Orientation was intact for person, place, time, and situation. Ajay evidenced fair understanding of the reason for the appointment. Kaela in-session behavior was cooperative. The predominant mood was calm with affect appropriate to expressed concerns and presenting problem. Immediate attention and concentration was unremarkable clinically during the interview. Memory functioning appeared to be intact. Level of intellectual functioning compared to same age peers was estimated to be in the average range. Thought processes were found to be generally logical, coherent and goal directed. Thought content appeared normal. Psychomotor retardation was observed. Tone of voice was soft. Expressive speech was marked by poor word articulation. Eye contact was fair. Insight was fair. Overall, style of interacting during the appointment was appropriate and motivated. Current/Previous Mental Health Treatment: Past psychiatric history was denied. History of self or other harm was denied. Current destructive behavior patterns : none indicated or reported. Family psychiatric history was reported as unremarkable. Recreational Drug Usage: Substance abuse history was denied. Family history of alcohol or drug abuse was not reported. Educational and Vocational Histories: History of learning problems: not assessed. School-based remedial education services: not assessed. In-school behavior problems: not assessed. Current vocational status: receiving disability due to Parkinsons for the past 6-7 years. Vocational history or other skills: worked for a [employer] in [place]. Legal History: Legal history was not assessed. Family and Social Histories: Ajay reported he currently lives at home with his and 17 year old son. Social contacts were reported as good; he stated he has six or seven friends he sees somewhat regularly and many friends on social media. Summary of Assessment Information/Prognosis: Ajay is a 57-year-old male. Following current assessment, presenting problem and symptoms appear consistent with a preliminary diagnosis of F43.22 Adjustment disorder with anxiety. Overall , prognosis is estimated to be good. Strengths/Weaknesses: Strengths/Resources: accepts feedback Liabilities/Barriers: health problems and unstable living environment Diagnostic Impressions: F43.22 Adjustment disorder with anxiety Initial Treatment Plan/Recommendations: The recommendations at this time include the following: remain in hospital until discharged, participate in therapy as recommended, and assist patient and his family in the transition to a intermediate. Ajay is recommended to return as needed should additional problems develop. Further disposition will be made at that time. Ajay verbalized understanding of these recommendations and an intention to comply with the proposed treatment plan and course of treatment. DAVID TOMAS [facility] September 18, 2017 13:45
--- NOTE | 2017-09-18 13:51 | Physical Therapy Daily Note ---
PT Daily Note-Current Subjective AGreeable to PT. no complaints. Pain Numeric Pain Scale: 0-No Pain Location: No Pain Reported Mental Status Patient Orientation: Person, Place, Time, Situation Transfers Functional [place] Measure 0=Not Assessed/NA 4=Minimal Assistance 1=Total Assistance 5=Supervision or Setup 2=Maximal Assistance 6=Modified [place] 3=Moderate Assistance 7=Complete IndependenceIRFPAI Quality Coding Scale 6 Independent with activity with or without an assistive device 5 Patient requires set up or clean up by helper. Patient completes activity by themselves 4 Supervision or touching assist (CGA). [place] provide cues , steadying assist 3 The helper provides less than half the effort to complete the activity 2 The helper provides more than half the effort to complete the activity 1 Dependent. The helper does all the effort to complete an activity 7 Patient refused to complete or attempt activity 9 The patient did not perform the activity before the current illness or injury 88 Not attempted due to Medical conditions or safety concerns Exercises Supine Ex: Bridging, Ankle pumps, Quad Set, Glut sets, Heel Slides, Short Arc Quads, Straight leg raise, Hip abd/add Supine Reps: 15 (to promote LE active movement and functional strength for transfers. ) Assessment Pt completed ther ex with limited assist. Cooperative and motivated. He was able to selectively move both LE's through ranges. PT Short Term Goals Short Term Goals Time Frame: September 22, 2017 Gait (FIM): 2 Distance (FIM): 0=415-27 ft Gait Assistive Device: FWW Wheelchair (FIM): 4 Wheelchair distance (FIM): 3=150 ft Wheelchair Distance: 30 ft PT Longterm Goals Floor Care Technician Goals PT Longterm Goals Time Frame: October 06, 2017 Transfers (B,C,W/C) (FIM): 6 Sit to Lying (QC): 6 Lying-Sitting on Side/Bed(QC): 6 Sit to Stand (QC): 6 Rollin Roll Left to Right (QC): 6 Chair/Jti-mm-Ttzlw Xfer(QC): 6 Car Transfer (QC): 5 Does the Patient Walk: No and Walking Goal IS indicated Gait (FIM): 5 Gait distance (FIM): 8=343-55 ft (household exception) Walk 10 feet (QC): 6 Walk 10ft-Uneven Surface(QC): 6 Walk 50ft with 2 Turns (QC): 6 Walk 150 ft (QC): 88 Gait Assistive Device: FWW Does the Pt use WC or Scooter?: Yes Wheelchair (FIM): 6 Wheelchair distance (FIM): 3=150 ft Wheel 50 feet with 2 turns (QC: 6 Stairs (FIM): 2 # of Steps: 4 1 Step (curb) (QC): 4 4 Steps (QC): 4 12 Steps (QC): 88 Picking up an Object (QC): 88 PT Plan Problem List Problem List: Activity Tolerance, Functional Strength, Safety, Balance, Gait, Transfer, Bed Mobility Treatment/Plan Treatment Plan: Continue Plan of Care Treatment Plan: Bed Mobility, Education, Functional Activity [place], Functional Strength, Group Therapy, Gait, Safety, Therapeutic Exercise, Transfers Treatment Duration: October 06, 2017 Frequency: At least 5 of 7 days/Wk (IRF) Estimated Hrs Per Day: 1.5 hours per day Patient and/or Family Agrees t: Yes Safety Risks/Education Patient Education: Safety Issues Teaching Recipient: Patient Teaching Methods: Discussion Response to Teaching: Reinforcement Needed Time/GCodes Time In: 1315 Time Out: 1338 Total Billed Treatment Time: 23 Total Billed Treatment visit EX 23 NAINA SHARPE PT September 18, 2017 13:51
--- NOTE | 2017-09-18 15:18 | Occupational Ther Daily Note ---
OT Current Status-Daily Note Subjective Pt seen in room, in bed, agreeable to OT. No pain mentioned. Appearance Alert, cooperative Mental Status/Objective Functional [place] Measure 0=Not Assessed/NA 4=Minimal Assistance 1=Total Assistance 5=Supervision or Setup 2=Maximal Assistance 6=Modified [place] 3=Moderate Assistance 7=Complete [place] ADL-Treatment Nursing reportd that he fed himself all of his lunch today, using built up handles on silverware Functional [place] Measure 0=Not Assessed/NA 4=Minimal Assistance 1=Total Assistance 5=Supervision or Setup 2=Maximal Assistance 6=Modified [place] 3=Moderate Assistance 7=Complete IndependenceIRFPAI Quality Coding Scale 6 Independent with activity with or without an assistive device 5 Patient requires set up or clean up by helper. Patient completes activity by themselves 4 Supervision or touching assist (CGA). [place] provide cues , steadying assist 3 The helper provides less than half the effort to complete the activity 2 The helper provides more than half the effort to complete the activity 1 Dependent. The helper does all the effort to complete an activity 7 Patient refused to complete or attempt activity 9 The patient did not perform the activity before the current illness or injury 88 Not attempted due to Medical conditions or safety concerns Other Treatment Pt did bilat UE exercise using 1.25 pound exercise bar, working on shoulders, elbows, wrists and hands. He was able to do 6-7 reps before too fatigued with L UE. OT assisting L UE throughout but R able to hold on to bar and perform exercises, although not through full range. Also did AROM bila elbows, forearms and hand AROM x 10 reps, with assist for L UE. Edema seems to be decreasing a little in UEs. Pt has overflow movements, especially with face. Pt left up in bed, call light in place, all needs met. OT Short Term Goals Short Term Goals Time Frame: September 22, 2017 Eating(FIM): 4 Bathing(FIM): 4 Upper Body Dressing(FIM): 4 Toilet/Commode Transfer(FIM): 3 Additional Short Term Goals: 1-Demonstrate ADL Tasks, 2-Verbalize Understanding , 3-ImproveStrength/[place] 1=Demonstrate adherence to instructed precautions during ADL tasks. 2=Patient will verbalize/demonstrate understanding of assistive devices/ modifications for ADL. 3=Patient will improve strength/tolerance for activity to enable patient to perform ADL's. OT Intermediate Goals Security Supervisor Goals Time Frame: October 06, 2017 Eating (FIM): 5 Eating (QC): 4 Groomin Oral Hygiene (QC): 5 Bathing(FIM): 4 Shower/Bathe Self (QC): 4 Upper Body Dressing(FIM): 5 Upper Body Dressing (QC): 5 Lower Body Dressing(FIM): 5 Lower Body Dressing (QC): 5 On/Off Footwear (QC): 5 Toileting(FIM): 44 Toileting Hygiene (QC): 4 Toilet/Commode Transfer(FIM): 4 Toilet/Commode Transfer (QC): 4 Tub Transfer(FIM): 4 (or shower) Shower Transfer(FIM): 4 (or tub) Comprehension(FIM): 5 Expression (FIM): 4 Social Interaction(FIM): 5 Problem Solving(FIM): 5 Memory(FIM): 5 Additional Goals: 1-Demonstrate ADL Tasks, 2-Verbalize Understanding, 3- ImproveStrength/[place] 1=Demonstrate adherence to instructed precautions during ADL tasks. 2=Patient will verbalize/demonstrate understanding of assistive devices/ modifications for ADL. 3=Patient will improve strength/tolerance for activity to enable patient to perform ADL's. OT Education/Plan Problem List/Assessment Pt would benefit from skilled OT to increase his independence in basic self care and to decrease caregiver burden Discharge Recommendations Plan/Recommendations: Continue POC Treatment Plan/Plan of Care Patient would benefit from OT for education, treatment and training to promote independence in ADL's, mobility, safety and/or upper extremity function for ADL' s. Plan of Care: ADL Retraining, Functional Mobility, Group Exercise/Act as Ind ( education, exercise, socialization, problem solving, funct mobility), Orthotic Fitting/Training, UE Funct Exercise/Act, UE Neuromus Re-Ed/Coord, W/C Management Training Treatment Duration: October 06, 2017 Frequency: At least 5 of 7 days/Wk (IRF) Estimated Hrs Per Day: 1.5 hours per day (1.25 to 1.5) Agreement: Yes Rehab Potential: Poor Time/GCodes Start Time: 14:15 Stop Time: 14:30 Total Time Billed (hr/min): 15 Billed Treatment Time visit, 15 minutes exercise CELIO PERDUE OT September 18, 2017 15:18
[2017-09-18 18:32] VITALS: BP 126/76
[2017-09-19] MEDS: SINEMET 25/250 (CARBIDOPA/LEVODOPA) TAB PO SCH ×7 (02:24→21:51)
[2017-09-19] MEDS: ACETAMINOPHEN 325 MG TABLET/CAPLET (TYLENOL) PO PRN ×2 (02:24→09:21)
[2017-09-19] MEDS: FERROUS SULF 325 MG (IRON) TAB PO SCH (06:10)
[2017-09-19] MEDS: metFORMIN 500 MG (GLUCOPHAGE) TAB PO SCH ×2 (06:10→17:47)
[2017-09-19] MEDS: PANTOPRAZOLE 20 MG TABLET (PROTONIX) PO SCH (06:10)
[2017-09-19 06:39] VITALS: BP 144/90
--- NOTE | 2017-09-19 08:19 | Progress Note (SOAP) ---
Subjective Time Seen by Provider: 08:15 Subjective/Events-last exam Patient feels he is doing better. Just has soreness in the neck. Is speaking better. Objective Exam Vital Signs Date Time Temp Pulse Resp B/P (MAP) Pulse Ox O2 Delivery O2 Flow Rate FiO2 09/19/17 06:39 98.4 86 19 144/90 (108) 97 Room Air 09/18/17 21:00 Room Air 09/18/17 18:32 97.5 84 14 126/76 (93) 98 09/18/17 09:00 Room Air I & O 09/19/17 07:00 Intake Total 1800 ml Output Total 1775 ml Balance 25 ml Capillary Refill : General Appearance: No Apparent Distress, WD/WN Results Lab Laboratory Tests 09/18/17 10:48: Glucometer 185H 09/18/17 16:00: Glucometer 187H 09/18/17 21:34: Glucometer 159H 09/19/17 04:54: Glucometer 137H Microbiology 09/09/17 Urine Culture - Final, Complete Assessment/Plan Assessment/Plan Assess & Plan/Chief Complaint Severe Parkinson. Debility. Diabetes. Osteoarthritis. Weakness.. . 09/10/17. Severe Parkinson. Debility. Diabetes. Anemia. Rechecking anemia. . 09/11/17. Severe Parkinson disease. Debility. Anemia. Diabetes. Hemoglobin 7.1. . 09/12/17. Debility. Anemia. Diabetes. Hemoglobin 7.1 stable . 09/15/17. Debility. Severe Parkinson disease. Diabetes under good control. Anemia stabilized area Occult blood of the stools negative. . 09/16/17. Debility. Severe Parkinson disease. Diabetes. Anemia. Patient feel has improved some. . 09/17/17. Debility. Severe Parkinson disease. Diabetes. Mani an anemia. Difficulty understand patient's words this morning. . 09/18/17. Debility. Severe Parkinson disease. Anemia stable. Diabetes good. Patient speaking much better today. Patient complaining of some upper back discomfort. . 09/19/17. Debility. Severe Parkinson disease. Anemia. Diabetes good. Patient improving with his speech Clinical Quality Measures DVT/VTE Risk/Contraindication: Risk Factor Score Per Nursin RFS Level Per Nursing on Admit: 3=High JAMES DE LA CRUZ DO September 19, 2017 08:19
[2017-09-19] MEDS: busPIRone 10 MG (BUSPAR) TAB PO SCH ×2 (09:05→21:51)
[2017-09-19] MEDS: amLODIPine 5 MG (NORVASC) TAB PO SCH (09:05)
[2017-09-19] MEDS: PROPRANOLOL 20 MG (INDERAL) TABLET PO SCH ×2 (09:05→21:51)
[2017-09-19] MEDS: SENNA W/DOCUSATE (SENOKOT S) TABLET PO SCH ×2 (09:05→21:51)
[2017-09-19] MEDS: POLYETHYLENE GLYCOL 17 GM (MIRALAX) PACK PO PRN (09:05)
[2017-09-19] MEDS: NYSTATIN CREAM (MYCOSTATIN) 30 GM TUBE TP SCH ×3 (09:14→21:52)
[2017-09-19] MEDS: BISACODYL 5 MG (DULCOLAX) TABLET PO SCH (09:14)
--- NOTE | 2017-09-19 09:14 | PM & R (SOAP) Progress Note ---
Subjective This was a face to face visit with the patient. Date Seen by Provider: September 19, 2017 Time Seen by Provider: 08:05 Subjective/Events-last exam Patient was seen in his room this AM Had BM Patient Max assist for transfers Objective Physician Exam Last Set of Vital Signs Vital Signs Date Time Temp Pulse Resp B/P (MAP) Pulse Ox O2 Delivery O2 Flow Rate FiO2 09/19/17 06:39 98.4 86 19 144/90 (108) 97 Room Air Capillary Refill : I&O Intake and Output 09/19/17 00:00 Intake Total 1700 ml Output Total 1475 ml Balance 225 ml Intake Oral 1700 ml Output Urine Total 1475 ml # Bowel Movements 3 General: Alert, Cooperative, No Acute Distress HEENT: Atraumatic, PERRLA, EOMI, Mucous Memb Moist/[place], Other (Flat affect Monotone voice) Neck: Supple, No JVD Lungs: Clear to Auscultation Heart: Regular Rate Abdomen: Normal Bowel Sounds, Soft, No Tenderness Extremities: No Edema Neuro: Other (Plus rigidity with dyscoordination and decreased sensation BLES Mild memry loos and impaired Comprehension Gait instability) Results Lab Data Laboratory Tests 09/16/17 10:58: Glucometer 166H 09/16/17 16:44: Glucometer 155H 09/16/17 20:56: Glucometer 135H 09/17/17 05:01: White Blood Count 9.2, Red Blood Count 2.31L, Hemoglobin 7.3L, Hematocrit 21L, Mean Corpuscular Volume 92, Mean Corpuscular Hemoglobin 32, Mean Corpuscular Hemoglobin Concent 34, Red Cell Distribution Width 14.8H, Platelet Count 384, Mean Platelet Volume 8.6 09/17/17 05:43: Glucometer 142H 09/17/17 10:45: Glucometer 212H 09/17/17 17:30: Glucometer 213H 09/17/17 20:15: Glucometer 163H 09/18/17 04:58: Glucometer 150H 09/18/17 10:48: Glucometer 185H 09/18/17 16:00: Glucometer 187H 09/18/17 21:34: Glucometer 159H 09/19/17 04:54: Glucometer 137H Microbiology 09/09/17 Urine Culture - Final, Complete Assessment/Plan Assessment and Plan Progressive [place] D Chronic constipation Chronic anemia DJD C spine ANTONIA Anxiety/depression OA GERD Neuropathy Chronic postop back pain HTN controlled Plan Continue PT/OT Discharge to local SNU in His home community of [facility] planned for 5--18 as Patients spouse unable to care for him at this level of care (1) Severe possible major neurocognitive disorder due to Parkinson's disease Status: Chronic Co-Morbidities that are continuing to impact the rehab process: (include details ) DAISHA MUSTAFA MD September 19, 2017 09:14
--- NOTE | 2017-09-19 09:51 | Speech Therapy Daily Note ---
Speech Daily Progress Note Subjective Date Seen by Provider: September 19, 2017 Time Seen by Provider: 08:30 The patient was seated upright in bed upon entrance. The patient displayed increased alertness on this date, as well as, improved participation. The patient was agreeable to participation in the voice exercise session. To note, the patient requested to visit with the nursing stock broker supervisor due to an incident between his and a RN the night (or several nights ago) prior. The speech pathologist contacted her direct stock broker supervisor, who discussed the information with the nursing stock broker supervisor. Objective Adductor Fold Exercises: Adductor fold exercises were continued on this date. While the patient does not possess adequate upper extremity strength, he continued to try and place effort on his chest by pushing against his hands and the bed. The patient completed each exercise ten times and with increased effort on this date. Functional phrases were included on this date with ten repetitions of each. Assessment Assessment Current Status: Fair Progress Treatment Plan Continue Plan of Care Communication Comprehension: 5 (The patient requires repetition of instructions and pausing for increased comprehension.) Expression: 3 (Moderate promptin is required. The patient is intelligible less than 50% of the time.) Social Cognition Social Interaction: 5 (Significantly flat affect noted. Intermittent encouragement for continued participation.) Problem Solvin (The patient solves routine problems 75 to 90% of the time.) Memory: 5 (The patient requires prompting only under stressful or unfamiliar condition (less than 10% of the time).) Speech Short Term Goals Short Term Goals Short Term Goals 1. The patient will demonstrate 80% accuracy with oral motor exercises with mild clinician verbal cueing. PROGRESSING 2. The patient will display 80% accuracy with intelligibility strategies with mild clinician cueing. PROGRESSING Time Frame-STG: Ten Days Speech Snf Goals Assistant General Manager Goals 1. The patient will demonstrate increased expressive communication for improved intelligibility in known and unknown contexts. Time Frame: Two Weeks Comprehension: 5 Expression: 4 Social Interaction: 5 Problem Solvin Memory: 5 Speech-Plan Treatment Plan Speech Therapy Treatment Plan: Continue Plan of Care Continue skilled speech pathology to target improved vocal intensity. Treatment Duration: September 22, 2017 Frequency: 3 times per week Estimated Hrs Per Day: .5 hour per day Rehab Potential: Poor Safety Risks/Education Teaching Recipient: Patient Teaching Methods: Demonstration, Discussion Response to Teaching: Return Demonstration Education Topics Provided: Adductor Fold Exercises Time Speech Therapy Time In: 08:30 Speech Therapy Time Out: 09:00 Total Billed Time: 30 Billed Treatment Time 1, BUTCH HALL September 19, 2017 09:51
--- NOTE | 2017-09-19 10:29 | Physical Therapy Daily Note ---
PT Daily Note-Current Subjective Patient in bed pre tx, agrees to PT, no complaints of pain. Will be co- treating with OT for 60 min this morning. Patient is very hard to understand this morning, speech is very poor and he is having an even harder time with mobility. Appearance Patient in bed post tx with nurse call, phone, tray, all needs met. Heel lift on pillows. Mental Status Patient Orientation: Person Transfers Functional [place] Measure 0=Not Assessed/NA 4=Minimal Assistance 1=Total Assistance 5=Supervision or Setup 2=Maximal Assistance 6=Modified [place] 3=Moderate Assistance 7=Complete IndependenceIRFPAI Quality Coding Scale 6 Independent with activity with or without an assistive device 5 Patient requires set up or clean up by helper. Patient completes activity by themselves 4 Supervision or touching assist (CGA). [place] provide cues , steadying assist 3 The helper provides less than half the effort to complete the activity 2 The helper provides more than half the effort to complete the activity 1 Dependent. The helper does all the effort to complete an activity 7 Patient refused to complete or attempt activity 9 The patient did not perform the activity before the current illness or injury 88 Not attempted due to Medical conditions or safety concerns Transfers (B, C, W/C) (FIM): 1 Scootin Rollin Supine to/from Sit: 1 Bed to/from Chair: 1 transfers with sit to stand machine Treatments Patient was transferred supine to sit and then transferred to shower chair and taken to shower. Patient showered and then was take to his room and transferred to bed, put shirt on while sitting EOB and layed down and rolled from side to side for nurse to apply wound dressings and to dress lowers. PT worked on bed mobility, rolling, supine to sit, transfers, and sitting balance while showering. OT worked on dressing, bathing, assisted with bed mobility and transfers. Assessment Current Status: Poor Progress No change in mobility. PT Short Term Goals Short Term Goals Time Frame: September 22, 2017 Gait (FIM): 2 Distance (FIM): 5=019-44 ft Gait Assistive Device: FWW Wheelchair (FIM): 4 Wheelchair distance (FIM): 3=150 ft Wheelchair Distance: 30 ft PT Billing And Quality Technician Goals Billing And Quality Technician Goals PT Billing And Quality Technician Goals Time Frame: October 06, 2017 Transfers (B,C,W/C) (FIM): 6 Sit to Lying (QC): 6 Lying-Sitting on Side/Bed(QC): 6 Sit to Stand (QC): 6 Rollin Roll Left to Right (QC): 6 Chair/Frf-qa-Drter Xfer(QC): 6 Car Transfer (QC): 5 Does the Patient Walk: No and Walking Goal IS indicated Gait (FIM): 5 Gait distance (FIM): 4=144-87 ft (household exception) Walk 10 feet (QC): 6 Walk 10ft-Uneven Surface(QC): 6 Walk 50ft with 2 Turns (QC): 6 Walk 150 ft (QC): 88 Gait Assistive Device: FWW Does the Pt use WC or Scooter?: Yes Wheelchair (FIM): 6 Wheelchair distance (FIM): 3=150 ft Wheel 50 feet with 2 turns (QC: 6 Stairs (FIM): 2 # of Steps: 4 1 Step (curb) (QC): 4 4 Steps (QC): 4 12 Steps (QC): 88 Picking up an Object (QC): 88 PT Plan Problem List Problem List: Activity Tolerance, Functional Strength, Safety, Balance, Gait, Transfer, Bed Mobility, ROM Treatment/Plan Treatment Plan: Continue Plan of Care Treatment Plan: Bed Mobility, Education, Functional Activity [place], Functional Strength, Group Therapy, Gait, Safety, Therapeutic Exercise, Transfers Treatment Duration: October 06, 2017 Frequency: At least 5 of 7 days/Wk (IRF) Estimated Hrs Per Day: 1.5 hours per day Patient and/or Family Agrees t: Yes Safety Risks/Education Patient Education: Transfer Techniques, Correct Positioning, Safety Issues Teaching Recipient: Patient Teaching Methods: Demonstration, Discussion Response to Teaching: Reinforcement Needed Time/GCodes Time In: 0900 Time Out: 1000 Total Billed Treatment Time: 60 Total Billed Treatment 1 visit FA 60' ABI BARDALES PT September 19, 2017 10:29
--- NOTE | 2017-09-19 13:01 | Occupational Ther Daily Note ---
OT Current Status-Daily Note Subjective Pt seen in room, up in bed, agreeable to therapy and taking a shower. More difficult to understand today. Appearance Alert, cooperative Mental Status/Objective Functional [place] Measure 0=Not Assessed/NA 4=Minimal Assistance 1=Total Assistance 5=Supervision or Setup 2=Maximal Assistance 6=Modified [place] 3=Moderate Assistance 7=Complete [place] ADL-Treatment Co-tx with PT today due to severity of his limitations and need for skilled interventions of two different therapists. Pt worked on bed mobility, transfers and balance and OT worked on ADLs and also balance and transfers, focusing on UEs. He needed help of two people to sit EOB and maintain his balance while sit to stand lift put into position and adjusted. Transferred with lift to wheeled shower chair and taken to shower room. Seat belt or physical assistance needed to maintain sitting balance in chair. Pt washed chest, abdomen, talisha, and thighs (although not thoroughly) and had difficulty holding on to washcloth. He was barely able to raise L UE for washing and had limited range in R UE as well. Used wheeled shower chair, grab bars, hand held shower. Pt was transferred back to bed using sit to stand lift and two people. Two people were needed to complete upper body dressing sitting at EOB, one to support trunk. He was able to barely lift hands to place them in shirt, unable to get shirt over head or pull it down. Two people needed to move him to supine. He could hardly lift his feet to help put them in pants and had difficulty bending knees to help pull them up. Worked on rolling side to side several times to get pants up and for nursing to put dressing on bottom and heels. Also unable to assist with getting socks on. Pt left up in bed, heels floated, arms supported don pillows, all needs met. Able to do less today Functional [place] Measure 0=Not Assessed/NA 4=Minimal Assistance 1=Total Assistance 5=Supervision or Setup 2=Maximal Assistance 6=Modified [place] 3=Moderate Assistance 7=Complete IndependenceIRFPAI Quality Coding Scale 6 Independent with activity with or without an assistive device 5 Patient requires set up or clean up by helper. Patient completes activity by themselves 4 Supervision or touching assist (CGA). [place] provide cues , steadying assist 3 The helper provides less than half the effort to complete the activity 2 The helper provides more than half the effort to complete the activity 1 Dependent. The helper does all the effort to complete an activity 7 Patient refused to complete or attempt activity 9 The patient did not perform the activity before the current illness or injury 88 Not attempted due to Medical conditions or safety concerns Bathing (FIM): 1 Bathing Location: L Upper Leg, R Upper Leg, Chest, Abdomen, Perineal Area Upper Body (FIM): 1 Lower Body Dressing (FIM): 1 Transfers (B, C, W/C) (FIM): 1 Shower Transfer(FIM): 1 Education OT Patient Education: Progress toward Goal/Update tx plan, Purpose of tx/ functional activities, Transfer techniques Teaching Recipient: Patient Teaching Methods: Demonstration, Discussion Response to Teaching: Verbalize Understanding OT Short Term Goals Short Term Goals Time Frame: September 22, 2017 Eating(FIM): 4 Bathing(FIM): 4 Upper Body Dressing(FIM): 4 Toilet/Commode Transfer(FIM): 3 Additional Short Term Goals: 1-Demonstrate ADL Tasks, 2-Verbalize Understanding , 3-ImproveStrength/[place] 1=Demonstrate adherence to instructed precautions during ADL tasks. 2=Patient will verbalize/demonstrate understanding of assistive devices/ modifications for ADL. 3=Patient will improve strength/tolerance for activity to enable patient to perform ADL's. OT Sourcing Analyst Goals Sourcing Analyst Goals Time Frame: October 06, 2017 Eating (FIM): 5 Eating (QC): 4 Groomin Oral Hygiene (QC): 5 Bathing(FIM): 4 Shower/Bathe Self (QC): 4 Upper Body Dressing(FIM): 5 Upper Body Dressing (QC): 5 Lower Body Dressing(FIM): 5 Lower Body Dressing (QC): 5 On/Off Footwear (QC): 5 Toileting(FIM): 44 Toileting Hygiene (QC): 4 Toilet/Commode Transfer(FIM): 4 Toilet/Commode Transfer (QC): 4 Tub Transfer(FIM): 4 (or shower) Shower Transfer(FIM): 4 (or tub) Comprehension(FIM): 5 Expression (FIM): 4 Social Interaction(FIM): 5 Problem Solving(FIM): 5 Memory(FIM): 5 Additional Goals: 1-Demonstrate ADL Tasks, 2-Verbalize Understanding, 3- ImproveStrength/[place] 1=Demonstrate adherence to instructed precautions during ADL tasks. 2=Patient will verbalize/demonstrate understanding of assistive devices/ modifications for ADL. 3=Patient will improve strength/tolerance for activity to enable patient to perform ADL's. OT Education/Plan Problem List/Assessment Pt would benefit from skilled OT to increase his independence in basic self care and to decrease caregiver burden Discharge Recommendations Plan/Recommendations: Continue POC Treatment Plan/Plan of Care Patient would benefit from OT for education, treatment and training to promote independence in ADL's, mobility, safety and/or upper extremity function for ADL' s. Plan of Care: ADL Retraining, Functional Mobility, Group Exercise/Act as Ind ( education, exercise, socialization, problem solving, funct mobility), Orthotic Fitting/Training, UE Funct Exercise/Act, UE Neuromus Re-Ed/Coord, W/C Management Training Treatment Duration: October 06, 2017 Frequency: At least 5 of 7 days/Wk (IRF) Estimated Hrs Per Day: 1.5 hours per day (1.25 to 1.5) Agreement: Yes Rehab Potential: Poor Time/GCodes Start Time: 09:00 Stop Time: 10:00 Total Time Billed (hr/min): 60 Billed Treatment Time visit, 60 minutes ADL, co-tx with PT CELIO PERDUE OT September 19, 2017 13:01
--- NOTE | 2017-09-19 15:00 | Therapy Group Daily Note ---
Therapy Daily Group Note Patient Education Topic Other List Below (Fall prevention) Exercises LE Seated Exercise, UE Exercise Other/Notes Pt transported via w/c to OT/PT group. Group consisted of introductions (name, place living, favorite pie), socialization, seated UE/LE exercises (peer led), education of fall prevention and memory activity. Pt introduced self appropriately and actively listened to peers. Pt was able to do modified UE/LE seated exercises due to medical diagnosis. Pt verbalized ways to prevent falls after educational topic was discussed. Pt was able to remember one word from previous, 2 days ago, memory activity. After group, pt was lying in bed with call light/phone in reach. All needs met in room. Start Time: 13:00 Stop Time: 14:15 Total Billed Treatment Time: 75 Total Billed Treatment 1-NAINA GEIGER September 19, 2017 15:00
[2017-09-19 18:00] VITALS: BP 151/80
[2017-09-20] VITALS (7 sets, daily range): BP systolic 99–159; BP diastolic 62–88
[2017-09-20] MEDS: SINEMET 25/250 (CARBIDOPA/LEVODOPA) TAB PO SCH ×7 (00:49→17:20)
[2017-09-20] MEDS: FERROUS SULF 325 MG (IRON) TAB PO SCH (06:25)
[2017-09-20] MEDS: PANTOPRAZOLE 20 MG TABLET (PROTONIX) PO SCH (06:25)
[2017-09-20] MEDS: metFORMIN 500 MG (GLUCOPHAGE) TAB PO SCH ×2 (06:25→17:20)
[2017-09-20] MEDS: busPIRone 10 MG (BUSPAR) TAB PO SCH ×2 (08:30→20:51)
[2017-09-20] MEDS: SENNA W/DOCUSATE (SENOKOT S) TABLET PO SCH ×2 (08:30→20:51)
[2017-09-20] MEDS: amLODIPine 5 MG (NORVASC) TAB PO SCH (08:30)
[2017-09-20] MEDS: PROPRANOLOL 20 MG (INDERAL) TABLET PO SCH ×2 (08:30→20:51)
[2017-09-20] MEDS: BISACODYL 5 MG (DULCOLAX) TABLET PO SCH (08:30)
[2017-09-20] MEDS: NYSTATIN CREAM (MYCOSTATIN) 30 GM TUBE TP SCH ×3 (08:32→20:52)
[2017-09-20] MEDS: ACETAMINOPHEN 325 MG TABLET/CAPLET (TYLENOL) PO PRN ×2 (08:35→19:22)
--- NOTE | 2017-09-20 10:39 | Progress Note-Hospitalist ---
Subjective HPI/CC On Admission Date Seen by Provider: September 20, 2017 Time Seen by Provider: 10:30 Subjective/Events-last exam Sinemet was increased Smacking of lips and other Parkinson's symptoms continue Last BM was 09/18/17 Multiple bowel regimen meds given due to high risk for toxic megacolon from Parkinson's Denies any pain Difficult to understand due to communication difficulties due to Parkinson's Review of Systems Gastrointestinal: Constipation Objective Exam Vital Signs Vital Signs Date Time Temp Pulse Resp B/P (MAP) Pulse Ox O2 Delivery O2 Flow Rate FiO2 09/20/17 16:08 96.8 85 14 99/62 (74) 98 09/20/17 09:59 Room Air Capillary Refill : General Appearance: No Apparent Distress, WD/WN, Chronically ill Respiratory: Lungs Clear, Normal Breath Sounds Cardiovascular: Regular Rate, Rhythm, No Edema Results/Procedures Lab Patient resulted labs reviewed. 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
--- NOTE | 2017-09-20 12:22 | Physical Therapy Daily Note ---
PT Daily Note-Current Subjective Pt. up in recliner, continued difficulty with speech but smiling and jovial and wants to try to exercise and eat lunch Pain Numeric Pain Scale: 0-No Pain Mental Status Patient Orientation: [place] Transfers Functional [place] Measure 0=Not Assessed/NA 4=Minimal Assistance 1=Total Assistance 5=Supervision or Setup 2=Maximal Assistance 6=Modified [place] 3=Moderate Assistance 7=Complete IndependenceIRFPAI Quality Coding Scale 6 Independent with activity with or without an assistive device 5 Patient requires set up or clean up by helper. Patient completes activity by themselves 4 Supervision or touching assist (CGA). [place] provide cues , steadying assist 3 The helper provides less than half the effort to complete the activity 2 The helper provides more than half the effort to complete the activity 1 Dependent. The helper does all the effort to complete an activity 7 Patient refused to complete or attempt activity 9 The patient did not perform the activity before the current illness or injury 88 Not attempted due to Medical conditions or safety concerns pt. TRFd via LIKO sit to stand with nursing Exercises Seated Therapy Exercises: Ankle pumps, Long arc quads, Hip flexion, Hip abd/add Seated Reps: 15 pt. semi reclined used hands/UEs and abdominals to do core partial situps /sit forwards. requiring some effort for pt. x 5 Treatments pt. prepped for lunch, utensils donned with build up. call hall at side Assessment Current Status: Fair Progress dependent for all mobility PT Short Term Goals Short Term Goals Time Frame: September 22, 2017 Gait (FIM): 2 Distance (FIM): 0=450-63 ft Gait Assistive Device: FWW Wheelchair (FIM): 4 Wheelchair distance (FIM): 3=150 ft Wheelchair Distance: 30 ft PT Intermediate Goals Intermediate Goals PT Commutator Presser Goals Time Frame: October 06, 2017 Transfers (B,C,W/C) (FIM): 6 Sit to Lying (QC): 6 Lying-Sitting on Side/Bed(QC): 6 Sit to Stand (QC): 6 Rollin Roll Left to Right (QC): 6 Chair/Tvq-rv-Pimbu Xfer(QC): 6 Car Transfer (QC): 5 Does the Patient Walk: No and Walking Goal IS indicated Gait (FIM): 5 Gait distance (FIM): 3=395-57 ft (household exception) Walk 10 feet (QC): 6 Walk 10ft-Uneven Surface(QC): 6 Walk 50ft with 2 Turns (QC): 6 Walk 150 ft (QC): 88 Gait Assistive Device: FWW Does the Pt use WC or Scooter?: Yes Wheelchair (FIM): 6 Wheelchair distance (FIM): 3=150 ft Wheel 50 feet with 2 turns (QC: 6 Stairs (FIM): 2 # of Steps: 4 1 Step (curb) (QC): 4 4 Steps (QC): 4 12 Steps (QC): 88 Picking up an Object (QC): 88 PT Plan Treatment/Plan Treatment Plan: Continue Plan of Care Treatment Plan: Bed Mobility, Education, Functional Activity [place], Functional Strength, Group Therapy, Gait, Safety, Therapeutic Exercise, Transfers Treatment Duration: October 06, 2017 Frequency: At least 5 of 7 days/Wk (IRF) Estimated Hrs Per Day: 1.5 hours per day Patient and/or Family Agrees t: Yes Safety Risks/Education Patient Education: Correct Positioning, Disease Process Time/GCodes Time In: 1145 Time Out: 1200 Total Billed Treatment Time: 15 Total Billed Treatment 1,EX15m G Codes Necessary: JARED Parr BATHROOM TILING PROFESSIONAL September 20, 2017 12:22
[2017-09-20 18:52] LABS: ABG BASE EXCESS -3.9 MMOL/L (-2.5-2.5); ABG OXYGEN SATURATION 100 % (94-100); ABG PCO2 29 MMHG (35-45); ABG PH 7.44 (7.37-7.43); ABG PO2 136 MMHG (79-93); ABG TCO2 20.6 MMOL/L (21.0-31.0)
[2017-09-20 18:52] LABS: BASOPHILS % (AUTO) 0 % (0-10); EOSINOPHILS # (AUTO) 0.1 10^3/uL (0.0-0.3); EOSINOPHILS % (AUTO) 1 % (0-10); LYMPHOCYTES # (AUTO) 0.9 X 10^3 (1.0-4.0); LYMPHOCYTES % (AUTO) 13 % (12-44); MEAN CORPUSCULAR HEMOGLOBIN 32 PG (25-34); MEAN CORPUSCULAR HGB CONC 34 G/DL (32-36); MEAN CORPUSCULAR VOLUME 93 FL (80-99); MEAN PLATELET VOLUME 8.1 FL (7.4-10.4); MONOCYTES # (AUTO) 0.4 X 10^3 (0.0-1.0); MONOCYTES % (AUTO) 6 % (0-12); NEUTROPHILS # (AUTO) 5.9 X 10^3 (1.8-7.8); NEUTROPHILS % (AUTO) 81 % (42-75); PLATELET COUNT 388 10^3/uL (130-400); RED BLOOD COUNT 1.99 10^6/uL (4.35-5.85); RED CELL DISTRIBUTION WIDTH 15.2 % (10.0-14.5); WHITE BLOOD COUNT 7.4 10^3/uL (4.3-11.0)
[2017-09-20 18:53] LABS: ALLENS TEST YES-POS; INSPIRED O2 2L; VENTILATOR NO
[2017-09-20 18:55] LABS: HEMATOCRIT 19 % (40-54); HEMOGLOBIN 6.3 G/DL (13.3-17.7)
--- NOTE | 2017-09-20 19:06 | Diagnostic Imaging Report ---
Indication: Patient found unresponsive CT head without contrast There is some motion artifact on the study. The ventricles are normal in size, shape and position. There are no masses or hemorrhages. There are no extra-axial fluid collections. There is no CT evidence of acute infarct. Impression: Negative CT head Dictated by: Dictated on workstation # [id number]
[2017-09-20 19:11] LABS: BUN/CREATININE RATIO 24; CALCIUM 7.7 MG/DL (8.5-10.1); CARBON DIOXIDE 18 MMOL/L (21-32); CHLORIDE 109 MMOL/L (98-107); CREATININE SERUM 0.66 MG/DL (0.60-1.30); GFR ESTIMATED > 60; GLUCOSE 125 MG/DL (70-105); POTASSIUM 4.5 MMOL/L (3.6-5.0); SODIUM 134 MMOL/L (135-145)
[2017-09-20] MEDS ORDERED: NS IV 500 ML 500 ML ONE (20:37)
[2017-09-21 00:11] VITALS: BP 160/90
[2017-09-21] MEDS: FERROUS SULF 325 MG (IRON) TAB PO SCH (05:55)
[2017-09-21] MEDS: PANTOPRAZOLE 20 MG TABLET (PROTONIX) PO SCH (05:55)
[2017-09-21] MEDS: metFORMIN 500 MG (GLUCOPHAGE) TAB PO SCH ×2 (05:55→16:34)
[2017-09-21 06:00] VITALS: BP 168/75
[2017-09-21 07:28] LABS: HEMOGLOBIN 8.1 G/DL (13.3-17.7)
[2017-09-21] MEDS: busPIRone 10 MG (BUSPAR) TAB PO SCH ×2 (08:36→20:18)
[2017-09-21] MEDS: SENNA W/DOCUSATE (SENOKOT S) TABLET PO SCH ×2 (08:37→20:18)
[2017-09-21] MEDS: amLODIPine 5 MG (NORVASC) TAB PO SCH (08:37)
[2017-09-21] MEDS: BISACODYL 5 MG (DULCOLAX) TABLET PO SCH (08:37)
[2017-09-21] MEDS: NYSTATIN CREAM (MYCOSTATIN) 30 GM TUBE TP SCH ×3 (08:37→20:18)
[2017-09-21] MEDS: PROPRANOLOL 20 MG (INDERAL) TABLET PO SCH ×2 (08:37→20:18)
[2017-09-21] MEDS: POLYETHYLENE GLYCOL 17 GM (MIRALAX) PACK PO PRN (08:37)
--- NOTE | 2017-09-21 11:47 | Progress Note-Hospitalist ---
Subjective HPI/CC On Admission Date Seen by Provider: September 21, 2017 Time Seen by Provider: 11:15 Subjective/Events-last exam Patient doing much better today Margy RN called the rapid response team yesterday at 1900 hrs. due to change in mental status and unresponsiveness but his vitals remained stable Initial labs were obtained since he was maintaining good oxygen and his airway and no obvious signs of stroke or any other issue but hemoglobin was down to 6.3 talked about the dose of his levodopa and that was increased to 2-1/2 pills every 4 hours so I presumed it was a situation of low hemoglobin severe anemia and oversedation from medications. Patient stabilized and improved as the hours past One unit of packed red blood cell transfusion was given and patient feels much better Overall patient has severe poor prognosis considering his overall chronic debility and even though he has a young age and the severity of his medical problems will likely cause premature in the near future Review of Systems General: Fatigue, Malaise Objective Exam Vital Signs Vital Signs Date Time Temp Pulse Resp B/P (MAP) Pulse Ox O2 Delivery O2 Flow Rate FiO2 09/21/17 08:56 Room Air 09/21/17 06:00 98.9 79 14 168/75 (106) 99 Capillary Refill : Less Than 3 Seconds General Appearance: No Apparent Distress, WD/WN, Chronically ill Respiratory: Lungs Clear, Normal Breath Sounds Cardiovascular: Regular Rate, Rhythm, No Edema Neurologic/Psychiatric: Depressed Affect, Motor Weakness Results/Procedures Lab Laboratory Tests 09/20/17 18:43 09/21/17 07:17 Patient resulted labs reviewed. 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
[2017-09-21] MEDS: SINEMET 25/250 (CARBIDOPA/LEVODOPA) TAB PO SCH ×4 (12:09→23:33)
[2017-09-21 16:20] VITALS: BP 159/83
[2017-09-22 04:09] VITALS: BP 160/85
[2017-09-22] MEDS: SINEMET 25/250 (CARBIDOPA/LEVODOPA) TAB PO SCH ×6 (04:23→23:57)
[2017-09-22] MEDS: FERROUS SULF 325 MG (IRON) TAB PO SCH (06:08)
[2017-09-22] MEDS: PANTOPRAZOLE 20 MG TABLET (PROTONIX) PO SCH (06:08)
[2017-09-22] MEDS: metFORMIN 500 MG (GLUCOPHAGE) TAB PO SCH ×2 (06:09→17:10)
--- NOTE | 2017-09-22 08:16 | Progress Note (SOAP) ---
Subjective Time Seen by Provider: 08:10 Subjective/Events-last exam Patient feeling good this morning. Patient has no complaints. Severe Parkinson. Debility Objective Exam Vital Signs Date Time Temp Pulse Resp B/P (MAP) Pulse Ox O2 Delivery O2 Flow Rate FiO2 09/22/17 04:09 97.0 86 16 160/85 (110) 100 09/21/17 21:00 Room Air 09/21/17 16:20 98.1 80 14 159/83 (108) 99 09/21/17 08:56 Room Air I & O 09/22/17 07:00 Intake Total 1670 ml Output Total 800 ml Balance 870 ml Capillary Refill : Less Than 3 Seconds General Appearance: No Apparent Distress, WD/WN HEENT: Normal ENT Inspection Neck: Normal Inspection Respiratory: No Accessory Muscle Use, No Respiratory Distress Cardiovascular: Regular Rate, Rhythm, No Murmur Results Lab Laboratory Tests 09/21/17 11:16: Glucometer 182H 09/21/17 16:18: Glucometer 183H 09/21/17 20:24: Glucometer 193H 09/22/17 06:15: Glucometer 138H Microbiology 09/09/17 Urine Culture - Final, Complete Assessment/Plan Assessment/Plan Assess & Plan/Chief Complaint Severe Parkinson. Debility. Diabetes. Osteoarthritis. Weakness.. . 09/10/17. Severe Parkinson. Debility. Diabetes. Anemia. Rechecking anemia. . 09/11/17. Severe Parkinson disease. Debility. Anemia. Diabetes. Hemoglobin 7.1. . 09/12/17. Debility. Anemia. Diabetes. Hemoglobin 7.1 stable . 09/15/17. Debility. Severe Parkinson disease. Diabetes under good control. Anemia stabilized area Occult blood of the stools negative. . 09/16/17. Debility. Severe Parkinson disease. Diabetes. Anemia. Patient feel has improved some. . 09/17/17. Debility. Severe Parkinson disease. Diabetes. Mani an anemia. Difficulty understand patient's words this morning. . 09/18/17. Debility. Severe Parkinson disease. Anemia stable. Diabetes good. Patient speaking much better today. Patient complaining of some upper back discomfort. . 09/19/17. Debility. Severe Parkinson disease. Anemia. Diabetes good. Patient improving with his speech. . 09/22/17. Patient had a rapid response team this weekend. Patient hemoglobin was down to 6.3 area Patient received a unit of blood. Diabetes. Patient voicing no complaints today. To check hemoglobin tomorrow Clinical Quality Measures DVT/VTE Risk/Contraindication: Risk Factor Score Per Nursin RFS Level Per Nursing on Admit: 3=High JAMES DE LA CRUZ DO September 22, 2017 08:16
[2017-09-22 08:35] VITALS: BP 151/78
[2017-09-22] MEDS: amLODIPine 5 MG (NORVASC) TAB PO SCH (08:39)
[2017-09-22] MEDS: busPIRone 10 MG (BUSPAR) TAB PO SCH ×2 (08:39→20:15)
[2017-09-22] MEDS: PROPRANOLOL 20 MG (INDERAL) TABLET PO SCH ×2 (08:40→20:16)
[2017-09-22] MEDS: SENNA W/DOCUSATE (SENOKOT S) TABLET PO SCH ×2 (08:40→20:15)
[2017-09-22] MEDS: BISACODYL 5 MG (DULCOLAX) TABLET PO SCH (08:40)
[2017-09-22] MEDS: NYSTATIN CREAM (MYCOSTATIN) 30 GM TUBE TP SCH ×3 (08:42→20:16)
--- NOTE | 2017-09-22 11:21 | Physical Therapy Daily Note ---
PT Daily Note-Current Subjective Patient in bed pre tx, agrees to PT, no complaints of pain, will be co-treating with OT this morning for 45 min Appearance Patient in bed post tx, nursing taking care of patient for wound dressing. He had some bleeding from wound, nurse notified. Mental Status Patient Orientation: Person, Place, Situation Transfers Functional [place] Measure 0=Not Assessed/NA 4=Minimal Assistance 1=Total Assistance 5=Supervision or Setup 2=Maximal Assistance 6=Modified [place] 3=Moderate Assistance 7=Complete IndependenceIRFPAI Quality Coding Scale 6 Independent with activity with or without an assistive device 5 Patient requires set up or clean up by helper. Patient completes activity by themselves 4 Supervision or touching assist (CGA). [place] provide cues , steadying assist 3 The helper provides less than half the effort to complete the activity 2 The helper provides more than half the effort to complete the activity 1 Dependent. The helper does all the effort to complete an activity 7 Patient refused to complete or attempt activity 9 The patient did not perform the activity before the current illness or injury 88 Not attempted due to Medical conditions or safety concerns Transfers (B, C, W/C) (FIM): 1 Scootin Rollin Roll Left to Right (QC): 2 Supine to/from Sit: 1 Sit to/from Stand: 1 Sit to Lying (QC): 1 Sit to Stand (QC): 1 Chair/Qrf-iv-Fzffs Xfer(QC): 1 Bed to/from Chair: 1 Patient performs bed mobility with dependence except for rolling which is max assist. Patient performs transfers with a sit to stand machine. He is dependent with a stand pivot transfer. Gait Training Does the Patient Walk?: No and Walking Goal NOT indicated Wheelchair Training Does the Pt Use a Wheelchair?: Yes Wheelchair (FIM): 1 Wheelchair Level of Assist: 1 Wheel 50 ft with 2 turns (QC): 1 Wheel 150 ft (QC): 1 Type of Wheelchair: Manual Treatments Patient was undressed in bed and supine to sit and transferred to shower chair via sit to stand machine. He was take to the shower room and showered and then back to his room. He was transferred back to bed with sit to stand machine and shirt donned and then layed down. Nursing checked and redressed his dressing on bottom. Assessment Current Status: Poor Progress No change in mobility. Co-treated with OT for 45 min. PT worked on rolling, bed mobility, transfers, and trunk stability and balance during shower. OT worked on bed mobility, dressing, bathing. PT Short Term Goals Short Term Goals Time Frame: September 22, 2017 Gait (FIM): 2 Distance (FIM): 6=549-87 ft Gait Assistive Device: FWW Wheelchair (FIM): 4 Wheelchair distance (FIM): 3=150 ft Wheelchair Distance: 30 ft PT Director Of Gift Planning Goals Director Of Gift Planning Goals PT Intermediate Goals Time Frame: October 06, 2017 Transfers (B,C,W/C) (FIM): 6 Sit to Lying (QC): 6 Lying-Sitting on Side/Bed(QC): 6 Sit to Stand (QC): 6 Rollin Roll Left to Right (QC): 6 Chair/Uxs-fu-Lxwit Xfer(QC): 6 Car Transfer (QC): 5 Does the Patient Walk: No and Walking Goal IS indicated Gait (FIM): 5 Gait distance (FIM): 8=317-02 ft (household exception) Walk 10 feet (QC): 6 Walk 10ft-Uneven Surface(QC): 6 Walk 50ft with 2 Turns (QC): 6 Walk 150 ft (QC): 88 Gait Assistive Device: FWW Does the Pt use WC or Scooter?: Yes Wheelchair (FIM): 6 Wheelchair distance (FIM): 3=150 ft Wheel 50 feet with 2 turns (QC: 6 Stairs (FIM): 2 # of Steps: 4 1 Step (curb) (QC): 4 4 Steps (QC): 4 12 Steps (QC): 88 Picking up an Object (QC): 88 PT Plan Problem List Problem List: Activity Tolerance, Functional Strength, Safety, Balance, Gait, Transfer, Bed Mobility, ROM Treatment/Plan Treatment Plan: Continue Plan of Care Treatment Plan: Bed Mobility, Education, Functional Activity [place], Functional Strength, Group Therapy, Gait, Safety, Therapeutic Exercise, Transfers Treatment Duration: October 06, 2017 Frequency: At least 5 of 7 days/Wk (IRF) Estimated Hrs Per Day: 1.5 hours per day Patient and/or Family Agrees t: Yes Safety Risks/Education Patient Education: Transfer Techniques, Correct Positioning, Safety Issues Teaching Recipient: Patient Teaching Methods: Demonstration, Discussion Response to Teaching: Reinforcement Needed Time/GCodes Time In: 1015 Time Out: 1100 Total Billed Treatment Time: 45 Total Billed Treatment 1 visit FA 45' ABI BARDALES PT September 22, 2017 11:21
--- NOTE | 2017-09-22 12:39 | Occupational Ther Daily Note ---
OT Current Status-Daily Note Subjective Pt seen in room, up in bed, agreeable to OT. No pain mentioned except in tailbone after sitting in shower chair Appearance Alert, cooperative, very soft spoken this morning and hard to understand Mental Status/Objective Functional [place] Measure 0=Not Assessed/NA 4=Minimal Assistance 1=Total Assistance 5=Supervision or Setup 2=Maximal Assistance 6=Modified [place] 3=Moderate Assistance 7=Complete [place] ADL-Treatment Pt needed assist to move from supine to sit and two people to set him up with sit to stand lift, one to maintain his sitting balance while the other set up the lift. Transferred to wheeled shower chair per lift. Transported to shower room. Two person help needed for bath - one to maintain him in sitting, even with seat belt, and the other to help with the bath. He was able to wash chest, abdomen, thighs, parts of arms and talisha in front, holding washcloth with either hand, R better than L. Support needed for him to lean forward to wash his back. Once back in room, transferred back to bed with lift. Two people needed to don shirt while sitting EOB, one to support him in sitting (he does help some with R hand on bedrail). Two people needed to lay him down. He was bleeding from wound on bottom so nursing changed dressing. Dependant lower body dressing. He fed himself breakfast, with setup, built-up handled silverware. Toilet transfer is dependant to C with sit to stand lift and he is unable to manage clothing or hygiene. He is also unable to place or empty urinal but he can help hold it. Pt left on his side, pillows supporting L arm, all needs met. Co-tx with PT due to severity of limitations and need for two different professionals to provide tx. OT worked on ADLs, UE function, transfers, and PT worked on LE function, transfers, balance, positioning. Functional [place] Measure 0=Not Assessed/NA 4=Minimal Assistance 1=Total Assistance 5=Supervision or Setup 2=Maximal Assistance 6=Modified [place] 3=Moderate Assistance 7=Complete IndependenceIRFPAI Quality Coding Scale 6 Independent with activity with or without an assistive device 5 Patient requires set up or clean up by helper. Patient completes activity by themselves 4 Supervision or touching assist (CGA). [place] provide cues , steadying assist 3 The helper provides less than half the effort to complete the activity 2 The helper provides more than half the effort to complete the activity 1 Dependent. The helper does all the effort to complete an activity 7 Patient refused to complete or attempt activity 9 The patient did not perform the activity before the current illness or injury 88 Not attempted due to Medical conditions or safety concerns Eating (FIM): 5 (setup in bed, built-up handled silverware) Eating (QC): 5 (setup) Grooming (FIM): 4 (min assist to brush dentures in mouth, built-up handled silverware. Washed face and hands in shower) Oral Hygiene (QC): 3 (mini A) Bathing (FIM): 3 (50% plus parts of arms, in shower, using wheeled shower chair , hand held shower, grab bar) Bathing Location: L Arm, R Arm, L Upper Leg, R Upper Leg, Chest, Abdomen, Perineal Area Shower/Bathe Self (QC): 3 Upper Body (FIM): 1 (Able to help lift hands to put them into sleeves, then help needed to pull shirt up arms, get shirt over head and pull it down. Two people needed - one to support him sitting EOB, one to help with dressing) Upper Body Dressing (QC): 1 Lower Body Dressing (FIM): 2 (Able to pick feet up to help put them into pants legs but not able to pull pants up over legs or hips. Able to help roll hips) Lower Body Dressing (QC): 2 On/Off Footwear (QC): 1 (Able to help pick feet up for socks on and off but not able to get socks on and off himself) Toileting (FIM): 1 (Unable to manage clothing or hygiene) Toileting Hygiene (QC): 1 Toilet/Commode Transfer (FIM): 1 (transfer to C with sit to stand lift) Toilet Transfer (QC): 1 Shower Transfer(FIM): 1 Education OT Patient Education: Modified ADL techniques, Progress toward Goal/Update tx plan, Purpose of tx/functional activities, Transfer techniques Teaching Recipient: Patient Teaching Methods: Discussion Response to Teaching: Verbalize Understanding, Return Demonstration, Reinforcement Needed OT Short Term Goals Short Term Goals Time Frame: September 22, 2017 Eating(FIM): 4 Bathing(FIM): 4 Upper Body Dressing(FIM): 4 Toilet/Commode Transfer(FIM): 3 Additional Short Term Goals: 1-Demonstrate ADL Tasks, 2-Verbalize Understanding , 3-ImproveStrength/[place] 1=Demonstrate adherence to instructed precautions during ADL tasks. 2=Patient will verbalize/demonstrate understanding of assistive devices/ modifications for ADL. 3=Patient will improve strength/tolerance for activity to enable patient to perform ADL's. OT Skilled Nursing Goals Supercharger Mechanic Goals Time Frame: October 06, 2017 Eating (FIM): 5 Eating (QC): 4 Groomin Oral Hygiene (QC): 5 Bathing(FIM): 4 Shower/Bathe Self (QC): 4 Upper Body Dressing(FIM): 5 Upper Body Dressing (QC): 5 Lower Body Dressing(FIM): 5 Lower Body Dressing (QC): 5 On/Off Footwear (QC): 5 Toileting(FIM): 44 Toileting Hygiene (QC): 4 Toilet/Commode Transfer(FIM): 4 Toilet/Commode Transfer (QC): 4 Tub Transfer(FIM): 4 (or shower) Shower Transfer(FIM): 4 (or tub) Comprehension(FIM): 5 Expression (FIM): 4 Social Interaction(FIM): 5 Problem Solving(FIM): 5 Memory(FIM): 5 Additional Goals: 1-Demonstrate ADL Tasks, 2-Verbalize Understanding, 3- ImproveStrength/[place] 1=Demonstrate adherence to instructed precautions during ADL tasks. 2=Patient will verbalize/demonstrate understanding of assistive devices/ modifications for ADL. 3=Patient will improve strength/tolerance for activity to enable patient to perform ADL's. OT Education/Plan Problem List/Assessment Pt would benefit from skilled OT to increase his independence in basic self care and to decrease caregiver burden Discharge Recommendations Plan/Recommendations: Continue POC Treatment Plan/Plan of Care Patient would benefit from OT for education, treatment and training to promote independence in ADL's, mobility, safety and/or upper extremity function for ADL' s. Plan of Care: ADL Retraining, Functional Mobility, Group Exercise/Act as Ind ( education, exercise, socialization, problem solving, funct mobility), Orthotic Fitting/Training, UE Funct Exercise/Act, UE Neuromus Re-Ed/Coord, W/C Management Training Treatment Duration: October 06, 2017 Frequency: At least 5 of 7 days/Wk (IRF) Estimated Hrs Per Day: 1.5 hours per day (1.25 to 1.5) Agreement: Yes Rehab Potential: Poor Time/GCodes Start Time: 10:15 Stop Time: 11:00 Total Time Billed (hr/min): 45 Billed Treatment Time visit, 45 minutes ADL, co-tx with PT CELIO PERDUE OT September 22, 2017 12:39
--- NOTE | 2017-09-22 13:29 | Speech Therapy Daily Note ---
Speech Daily Progress Note Subjective Date Seen by Provider: September 22, 2017 Time Seen by Provider: 11:15 The patient was seated upright in bed upon entrance. The patient was agreeable to participation in the voice exercise session. Objective Adductor Fold Exercises: Adductor fold exercises were continued on this date. While the patient does not possess adequate upper extremity strength, he continued to try and place effort on his chest by pushing against his hands and the bed. The patient completed each exercise ten times on this date. Functional phrases were included on this date with ten repetitions of each. To note, the patient continues to display increased fatigue and limited to no progression with voice exercises. Assessment Assessment Current Status: Poor Progress Treatment Plan Continue Plan of Care Communication Comprehension: 5 (The patient requires repetition of instructions and pausing for increased comprehension.) Expression: 3 (Moderate promptin is required. The patient is intelligible less than 50% of the time.) Social Cognition Social Interaction: 5 (Significantly flat affect noted. Intermittent encouragement for continued participation.) Problem Solvin (The patient solves routine problems 75 to 90% of the time.) Memory: 5 (The patient requires prompting only under stressful or unfamiliar condition (less than 10% of the time).) Speech Short Term Goals Short Term Goals Short Term Goals 1. The patient will demonstrate 80% accuracy with oral motor exercises with mild clinician verbal cueing. PROGRESSING 2. The patient will display 80% accuracy with intelligibility strategies with mild clinician cueing. PROGRESSING Time Frame-STG: Ten Days Speech State Assessed Properties Director Goals Nursing Home Goals 1. The patient will demonstrate increased expressive communication for improved intelligibility in known and unknown contexts. Time Frame: Two Weeks Comprehension: 5 Expression: 4 Social Interaction: 5 Problem Solvin Memory: 5 Speech-Plan Treatment Plan Speech Therapy Treatment Plan: Continue Plan of Care Continue skilled speech pathology to target improved intensity of voice. Treatment Duration: September 22, 2017 Frequency: 3 times per week Estimated Hrs Per Day: .5 hour per day Rehab Potential: Poor Safety Risks/Education Teaching Recipient: Patient Teaching Methods: Demonstration, Handout, Discussion Response to Teaching: Verbalize Understanding Education Topics Provided: Adductor Fold Exercises Time Speech Therapy Time In: 11:15 Speech Therapy Time Out: 11:45 Total Billed Time: 30 Billed Treatment Time 1MADELIN [address] ST September 22, 2017 13:28
--- NOTE | 2017-09-22 13:40 | Therapy Team Discharge Summary ---
Therapy Discharge Summary Discharge Recommendations Date of Discharge Occupational Therapy Decreased Activ Tolerance, Decreased UE Strength, Dependent Transfers, Edema, Impaired Bed Mobility, Impaired Coordination, Impaired Funct Balance, Impaired Self-Care Skills, Restricted Funct UE ROM Speech-Language Pathology The patient was admitted to [facility] with a diagnosis of debility. Upon admission, the patient displayed moderate dysphonia. Skilled speech pathology focused on improved breath support, adductor fold exercises, and increased vocal effort. Limited to zero progression was made throughout voice therapy, as the patient frequently required encouragement for increased effort and volume. The patient did not meet expressive goals placed by the clinician. At this time, the patient will be discharged from skilled speech pathology. No additional speech services are warranted. PT Video Operator Goals Intermediate Goals PT Video Operator Goals Time Frame: October 06, 2017 Transfers (B,C,W/C) (FIM): 6 Roll Left to Right (QC): 6 Sit to Lying (QC): 6 Lying-Sitting on Side/Bed(QC): 6 Sit to Stand (QC): 6 Chair/Hsc-tw-Uypyb Xfer(QC): 6 Car Transfer (QC): 5 Does the Patient Walk: No and Walking Goal IS indicated Gait (FIM): 5 Gait distance (FIM): 4=395-67 ft (household exception) Walk 10 feet (QC): 6 Walk 10ft-Uneven Surface(QC): 6 Walk 50ft with 2 Turns (QC): 6 Walk 150 ft (QC): 88 Gait Assistive Device: FWW Does the Pt use WC or Scooter?: Yes Wheelchair (FIM): 6 Wheelchair distance (FIM): 3=150 ft Wheel 50 feet with 2 turns (QC: 6 Stairs (FIM): 2 # of Steps: 4 1 Step (curb) (QC): 4 4 Steps (QC): 4 12 Steps (QC): 88 Picking up an Object (QC): 88 OT Intermediate Goals Intermediate Goals Time Frame: October 06, 2017 Eating (FIM): 5 Eating (QC): 4 Oral Hygiene (QC): 5 Grooming(FIM): 5 Bathing(FIM): 4 Shower/Bathe Self (QC): 4 Upper Body Dressing(FIM): 5 Upper Body Dressing (QC): 5 Lower Body Dressing(FIM): 5 Lower Body Dressing (QC): 5 On/Off Footwear (QC): 5 Toileting(FIM): 44 Toileting Hygiene (QC): 4 Toilet/Commode Transfer(FIM): 4 Toilet/Commode Transfer (QC): 4 Tub Transfer(FIM): 4 (or shower) Shower Transfer(FIM): 4 (or tub) Comprehension(FIM): 5 Expression (FIM): 4 Social Interaction(FIM): 5 Problem Solving(FIM): 5 Memory(FIM): 5 Additional Goals: 1-Demonstrate ADL Tasks, 2-Verbalize Understanding, 3- ImproveStrength/[place] 1=Demonstrate adherence to instructed precautions during ADL tasks. 2=Patient will verbalize/demonstrate understanding of assistive devices/ modifications for ADL. 3=Patient will improve strength/tolerance for activity to enable patient to perform ADL's. Speech Intermediate Goals Intermediate Goals 1. The patient will demonstrate increased expressive communication for improved intelligibility in known and unknown contexts. Time Frame: Two Weeks Comprehension: 5 (MET) Expression: 4 (NOT MET) Social Interaction: 5 (MET) Problem Solvin (NOT MET) Memory: 5 (MET) BUTCH ROSE September 22, 2017 13:40
--- NOTE | 2017-09-22 14:42 | Therapy Group Daily Note ---
Therapy Daily Group Note Patient Education Topic Home Safety Other/Notes Pt was an active participant in OT/PT group. 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 He also participated in discussion/education on home and community safety. He needed assist of two to transfer per sit to stand lift to recliner and was returned to his room in recliner, all needs met. Start Time: 13:00 Stop Time: 14:20 Total Billed Treatment Time: 80 Total Billed Treatment visit, 80 minutes group CELIO PERDUE OT September 22, 2017 14:42
[2017-09-22] MEDS: ACETAMINOPHEN 325 MG TABLET/CAPLET (TYLENOL) PO PRN (15:45)
[2017-09-22 17:15] VITALS: BP 165/89
--- NOTE | 2017-09-22 19:59 | PM & R (SOAP) Progress Note ---
Subjective This was a face to face visit with the patient. Date Seen by Provider: September 22, 2017 Time Seen by Provider: 19:45 Subjective/Events-last exam Patient was seen in his room this evening Apprecaiet Dr Urbano and Donnie notes and orders Patient requested that Sinemet be increased to what he had on befor but apparentlt didnt tolerate it and had further issues with Anemia worsening Heme to see tomorrow.Patient dependernt for transfers SW indicates that local CT in [place] may accept patient on 09-24-17 will f/u with her tomorrow.Current labs and therapy notes reviewed Review of Systems Neurological: Weakness Objective Physician Exam Last Set of Vital Signs Vital Signs Date Time Temp Pulse Resp B/P (MAP) Pulse Ox O2 Delivery O2 Flow Rate FiO2 09/22/17 08:44 Room Air 09/22/17 08:35 96.9 85 18 151/78 (102) 99 Capillary Refill : Less Than 3 Seconds I&O Intake and Output 09/22/17 00:00 Intake Total 1400 ml Output Total 760 ml Balance 640 ml Intake Oral 1280 ml IV Total 100 ml Other 20 ml Output Urine Total 760 ml # Voids 1 # Bowel Movements 1 General: Alert, Cooperative, No Acute Distress HEENT: Atraumatic, PERRLA, EOMI, Mucous Memb Moist/[place], Other (Flat affect Monotone voice) Neck: Supple, No JVD Lungs: Clear to Auscultation Heart: Regular Rate Abdomen: Normal Bowel Sounds, Soft, No Tenderness Extremities: No Edema Neuro: Other (Plus rigidity with dyscoordination and decreased sensation BLES Mild memry loos and impaired Comprehension Gait instability) Results Lab Data Laboratory Tests 09/19/17 21:11: Glucometer 129H 09/20/17 05:17: Glucometer 138H 09/20/17 11:09: Glucometer 120H 09/20/17 16:07: Glucometer 156H 09/20/17 18:38: Glucometer 129H 09/20/17 18:43: White Blood Count 7.4, Red Blood Count 1.99L, Hemoglobin 6.3*L, Hematocrit 19*L , Mean Corpuscular Volume 93, Mean Corpuscular Hemoglobin 32, Mean Corpuscular Hemoglobin Concent 34, Red Cell Distribution Width 15.2H, Platelet Count 388, Mean Platelet Volume 8.1, Neutrophils (%) (Auto) 81H, Lymphocytes (%) (Auto) 13 , Monocytes (%) (Auto) 6, Eosinophils (%) (Auto) 1, Basophils (%) (Auto) 0, Neutrophils # (Auto) 5.9, Lymphocytes # (Auto) 0.9L, Monocytes # (Auto) 0.4, Eosinophils # (Auto) 0.1, Basophils # (Auto) 0.0, Sodium Level 134L, Potassium Level 4.5, Chloride Level 109H, Carbon Dioxide Level 18L, Anion Gap 7, Blood Urea Nitrogen 16, Creatinine 0.66, Estimat Glomerular Filtration Rate > 60, BUN/ Creatinine Ratio 24, Glucose Level 125H, Calcium Level 7.7L 09/20/17 18:45: Blood Gas Puncture Site L RAD, Blood Gas Patient Temperature 97.0, Arterial Blood pH 7.44H, Arterial Blood Partial Pressure CO2 29L, Arterial Blood Partial Pressure O2 136H, Arterial Blood HCO3 20L, Arterial Blood Total CO2 20.6L, Arterial Blood Oxygen Saturation 100, Arterial Blood Base Excess -3.9L, [place] Test YES-POS, Blood Gas Ventilator Setting NO, Blood Gas Inspired Oxygen 2L 09/20/17 20:13: Glucometer 137H 09/21/17 05:51: Glucometer 115H 09/21/17 07:17: Hemoglobin 8.1#L, Hematocrit 24L 09/21/17 11:16: Glucometer 182H 09/21/17 16:18: Glucometer 183H 09/21/17 20:24: Glucometer 193H 09/22/17 06:15: Glucometer 138H 09/22/17 11:03: Glucometer 155H 09/22/17 16:03: Glucometer 177H Microbiology 09/09/17 Urine Culture - Final, Complete Assessment/Plan Assessment and Plan Progressive PD Chronic anemia s/p transfusion Overmedication meds adjusted DM controlled DJD C spine ANTONIA Anxiety /depression Neuropathy Chronic back pain HTN controlled Plan Continue PT/OT F/U labs as per Heme Possible transfer to [facility] 09-24-17 for further care and treatments Will f/u with SW (1) Severe possible major neurocognitive disorder due to Parkinson's disease Status: Chronic Co-Morbidities that are continuing to impact the rehab process: (include details ) DAISHA MUSTAFA MD September 22, 2017 19:59
[2017-09-23] MEDS: SINEMET 25/250 (CARBIDOPA/LEVODOPA) TAB PO SCH ×5 (04:40→20:50)
[2017-09-23] MEDS: FERROUS SULF 325 MG (IRON) TAB PO SCH (06:05)
[2017-09-23] MEDS: metFORMIN 500 MG (GLUCOPHAGE) TAB PO SCH ×2 (06:05→16:36)
[2017-09-23] MEDS: PANTOPRAZOLE 20 MG TABLET (PROTONIX) PO SCH (06:05)
[2017-09-23 06:10] VITALS: BP 162/70
[2017-09-23 06:39] LABS: ABSOLUTE RETIC # 55 10e9/L (24-90); BASOPHILS % (AUTO) 0 % (0-10); EOSINOPHILS # (AUTO) 0.1 10^3/uL (0.0-0.3); EOSINOPHILS % (AUTO) 1 % (0-10); HEMATOCRIT 25 % (40-54); HEMOGLOBIN 8.5 G/DL (13.3-17.7); LYMPHOCYTES # (AUTO) 1.1 X 10^3 (1.0-4.0); LYMPHOCYTES % (AUTO) 13 % (12-44); MEAN CORPUSCULAR HEMOGLOBIN 31 PG (25-34); MEAN CORPUSCULAR HGB CONC 34 G/DL (32-36); MEAN CORPUSCULAR VOLUME 92 FL (80-99); MEAN PLATELET VOLUME 8.2 FL (7.4-10.4); MONOCYTES # (AUTO) 0.4 X 10^3 (0.0-1.0); MONOCYTES % (AUTO) 4 % (0-12); NEUTROPHILS # (AUTO) 7.2 X 10^3 (1.8-7.8); NEUTROPHILS % (AUTO) 82 % (42-75); PLATELET COUNT 440 10^3/uL (130-400); RED BLOOD COUNT 2.75 10^6/uL (4.35-5.85); RETICULOCYTE % 1.98 % (0.50-2.40)
--- NOTE | 2017-09-23 08:24 | Progress Note (SOAP) ---
Subjective Time Seen by Provider: 08:20 Subjective/Events-last exam Severe Parkinson. Debility. Anemia. Blood pressures been high the last few days Objective Exam Vital Signs Date Time Temp Pulse Resp B/P (MAP) Pulse Ox O2 Delivery O2 Flow Rate FiO2 09/23/17 06:10 98.2 84 18 162/70 (100) 100 Room Air 09/22/17 21:00 Room Air 09/22/17 17:15 96.9 75 18 165/89 (114) 99 Room Air 09/22/17 08:44 Room Air 09/22/17 08:35 96.9 85 18 151/78 (102) 99 Room Air I & O 09/23/17 07:00 Intake Total 1530 ml Output Total 1450 ml Balance 80 ml Capillary Refill : Less Than 3 Seconds General Appearance: No Apparent Distress, WD/WN HEENT: Normal ENT Inspection Neck: Normal Inspection Results Lab Laboratory Tests 09/22/17 11:03: Glucometer 155H 09/22/17 16:03: Glucometer 177H 09/22/17 20:53: Glucometer 160H 09/23/17 05:58: Glucometer 154H 09/23/17 06:16: White Blood Count 8.8, Red Blood Count 2.75L, Hemoglobin 8.5L, Hematocrit 25L, Mean Corpuscular Volume 92, Mean Corpuscular Hemoglobin 31, Mean Corpuscular Hemoglobin Concent 34, Red Cell Distribution Width 15.0H, Platelet Count 440H, Mean Platelet Volume 8.2, Neutrophils (%) (Auto) 82H, Lymphocytes (%) (Auto) 13 , Monocytes (%) (Auto) 4, Eosinophils (%) (Auto) 1, Basophils (%) (Auto) 0, Neutrophils # (Auto) 7.2, Lymphocytes # (Auto) 1.1, Monocytes # (Auto) 0.4, Eosinophils # (Auto) 0.1, Basophils # (Auto) 0.0, Absolute Reticulocyte Count 55 , Percent Reticulocyte Count 1.98 Microbiology 09/09/17 Urine Culture - Final, Complete Assessment/Plan Assessment/Plan Assess & Plan/Chief Complaint Severe Parkinson. Debility. Diabetes. Osteoarthritis. Weakness.. . 09/10/17. Severe Parkinson. Debility. Diabetes. Anemia. Rechecking anemia. . 09/11/17. Severe Parkinson disease. Debility. Anemia. Diabetes. Hemoglobin 7.1. . 09/12/17. Debility. Anemia. Diabetes. Hemoglobin 7.1 stable . 09/15/17. Debility. Severe Parkinson disease. Diabetes under good control. Anemia stabilized area Occult blood of the stools negative. . 09/16/17. Debility. Severe Parkinson disease. Diabetes. Anemia. Patient feel has improved some. . 09/17/17. Debility. Severe Parkinson disease. Diabetes. Mani an anemia. Difficulty understand patient's words this morning. . 09/18/17. Debility. Severe Parkinson disease. Anemia stable. Diabetes good. Patient speaking much better today. Patient complaining of some upper back discomfort. . 09/19/17. Debility. Severe Parkinson disease. Anemia. Diabetes good. Patient improving with his speech. . 09/22/17. Patient had a rapid response team this weekend. Patient hemoglobin was down to 6.3 area Patient received a unit of blood. Diabetes. Patient voicing no complaints today. To check hemoglobin tomorrow. . 09/23/17. Anemia. Diabetes under control. Hypertension with few days put on HCTZ. Patient to be discharged tomorrow to snf Clinical Quality Measures DVT/VTE Risk/Contraindication: Risk Factor Score Per Nursin RFS Level Per Nursing on Admit: 3=High JAMES DE LA CRUZ DO September 23, 2017 08:24
[2017-09-23 08:37] LABS: BAND NEUTROPHILS 0 %; BASOPHILS % (MANUAL) 0 %; EOSINOPHILS % (MANUAL) 0 %; LYMPHOCYTES % (MANUAL) 10 %; MONOCYTES % (MANUAL) 3 %; NEUTROPHILS % (MANUAL) 87 %
[2017-09-23 08:38] LABS: RBC MORPH NORMAL
[2017-09-23 08:39] LABS: WHITE BLOOD COUNT 8.8 10^3/uL (4.3-11.0)
[2017-09-23] MEDS: amLODIPine 5 MG (NORVASC) TAB PO SCH (08:39)
[2017-09-23] MEDS: SENNA W/DOCUSATE (SENOKOT S) TABLET PO SCH ×2 (08:39→20:50)
[2017-09-23] MEDS: BISACODYL 5 MG (DULCOLAX) TABLET PO SCH (08:40)
[2017-09-23] MEDS: PROPRANOLOL 20 MG (INDERAL) TABLET PO SCH ×2 (08:40→20:50)
[2017-09-23] MEDS: busPIRone 10 MG (BUSPAR) TAB PO SCH ×2 (08:40→20:50)
[2017-09-23] MEDS: MILK OF MAGNESIA 400 MG/5 ML 30 ML UDC PO PRN (08:40)
[2017-09-23] MEDS: NYSTATIN CREAM (MYCOSTATIN) 30 GM TUBE TP SCH ×3 (08:40→20:50)
[2017-09-23] MEDS: HYDROCHLOROTHIAZIDE 12.5 MG (HCTZ) CAP PO SCH (08:45)
--- NOTE | 2017-09-23 11:15 | Physical Therapy Daily Note ---
PT Daily Note-Current Subjective Patient in recliner pre tx, agrees to PT, no complaints of pain. Patient has already been working with OT for a bit and we will co-treat for the next 45 min. Appearance Patient in recliner post tx with nurse call, phone, tray, all needs met. Legs elevated and on pillows. Mental Status Patient Orientation: Person Transfers Functional [place] Measure 0=Not Assessed/NA 4=Minimal Assistance 1=Total Assistance 5=Supervision or Setup 2=Maximal Assistance 6=Modified [place] 3=Moderate Assistance 7=Complete IndependenceIRFPAI Quality Coding Scale 6 Independent with activity with or without an assistive device 5 Patient requires set up or clean up by helper. Patient completes activity by themselves 4 Supervision or touching assist (CGA). [place] provide cues , steadying assist 3 The helper provides less than half the effort to complete the activity 2 The helper provides more than half the effort to complete the activity 1 Dependent. The helper does all the effort to complete an activity 7 Patient refused to complete or attempt activity 9 The patient did not perform the activity before the current illness or injury 88 Not attempted due to Medical conditions or safety concerns Transfers (B, C, W/C) (FIM): 1 Scootin Sit to/from Stand: 2 Bed to/from Chair: 2 Patient was able to perform sit to stand and stand pivot with max assist of 2. Treatments Patient was transferred from recliner to wheelchair via sit to stand machine. He was taken to the therapy gym and put in the parallel bars where he stood with max assist x3. He was then taken over to the therapy table and transferred with stand pivot of max assist and worked on sitting balance and limits of stability while seated. After that he was stand pivot transferred back to wheelchair, taken back to his room, and transferred to recliner via sit to stand machine. PT worked on transfers, standing in parallel bars, and sitting balance. OT worked on dressing, UE positioning during standing and sitting balance, assisted with transfers. Assessment Current Status: Poor Progress No change in mobility. PT Short Term Goals Short Term Goals Time Frame: September 22, 2017 Gait (FIM): 2 Distance (FIM): 2=882-82 ft Gait Assistive Device: FWW Wheelchair (FIM): 4 Wheelchair distance (FIM): 3=150 ft Wheelchair Distance: 30 ft PT Treasury Agent Goals Shelter Goals PT Treasury Agent Goals Time Frame: October 06, 2017 Transfers (B,C,W/C) (FIM): 6 Sit to Lying (QC): 6 Lying-Sitting on Side/Bed(QC): 6 Sit to Stand (QC): 6 Rollin Roll Left to Right (QC): 6 Chair/Ncz-jo-Hocvt Xfer(QC): 6 Car Transfer (QC): 5 Does the Patient Walk: No and Walking Goal IS indicated Gait (FIM): 5 Gait distance (FIM): 7=053-36 ft (household exception) Walk 10 feet (QC): 6 Walk 10ft-Uneven Surface(QC): 6 Walk 50ft with 2 Turns (QC): 6 Walk 150 ft (QC): 88 Gait Assistive Device: FWW Does the Pt use WC or Scooter?: Yes Wheelchair (FIM): 6 Wheelchair distance (FIM): 3=150 ft Wheel 50 feet with 2 turns (QC: 6 Stairs (FIM): 2 # of Steps: 4 1 Step (curb) (QC): 4 4 Steps (QC): 4 12 Steps (QC): 88 Picking up an Object (QC): 88 PT Plan Problem List Problem List: Activity Tolerance, Functional Strength, Safety, Balance, Gait, Transfer, Bed Mobility, ROM Treatment/Plan Treatment Plan: Continue Plan of Care Treatment Plan: Bed Mobility, Education, Functional Activity [place], Functional Strength, Group Therapy, Gait, Safety, Therapeutic Exercise, Transfers Treatment Duration: October 06, 2017 Frequency: At least 5 of 7 days/Wk (IRF) Estimated Hrs Per Day: 1.5 hours per day Patient and/or Family Agrees t: Yes Safety Risks/Education Patient Education: Transfer Techniques, Correct Positioning, Safety Issues Teaching Recipient: Patient Teaching Methods: Demonstration, Discussion Response to Teaching: Reinforcement Needed Time/GCodes Time In: 1015 Time Out: 1100 Total Billed Treatment Time: 45 Total Billed Treatment 1 visit FA ABI SIN PT September 23, 2017 11:15
--- NOTE | 2017-09-23 12:52 | Occupational Ther Daily Note ---
OT Current Status-Daily Note Subjective Pt seen in room, up in recliner, agreeable to therapy. No pain mentioned. Appearance Alert, cooperative Mental Status/Objective Functional [place] Measure 0=Not Assessed/NA 4=Minimal Assistance 1=Total Assistance 5=Supervision or Setup 2=Maximal Assistance 6=Modified [place] 3=Moderate Assistance 7=Complete [place] ADL-Treatment First 15 minutes were individual tx by OT for ADLs, subsequent 45 minutes were co-tx with PT due to the complexity of physical limitations requiring skilled interventions from two different professions. OT worked on UE function, ADLs and PT worked on LEs, transfers, sitting. Pt was able to lift hands to help take them out of shirt and to help place them in clean shirt but was not able to help pull arms of shirt up, get shirt over head or pull it down in back. He was able to lift feet one at a time to help place them in shorts but not pull them up over knees. Pt encouraged to use arms and abdomen to pull himself forward in chair.Sit to stand lift used to stand him to pull pants up and to transfer him to w/c. He was able to hold on to lift consistently with R hand and with L hand once it was placed on lift. Pt transported to gym and did three sit to stands in parallel bars (see PT note) with OT helping to place and hold L hand and UE and facilitate elbow extension. Pt was transferred to treatment table to work on sitting and UE strength. By end of tx, he was able to sit edge of mat for approx 30 seconds, helping to support himself with UEs on mat. Also worked on leaning forward and side to side and arm "pushups and pull ups" while sitting. All are skills needed for dressing upper body. Pt transferred back to w /c and taken back to room. Transferred with sit to stand lift to recliner and left supported in recliner, legs elevated, arms on pillows, call light, Isotoner gloves on hands to help decrease edema, all needs met. Functional [place] Measure 0=Not Assessed/NA 4=Minimal Assistance 1=Total Assistance 5=Supervision or Setup 2=Maximal Assistance 6=Modified [place] 3=Moderate Assistance 7=Complete IndependenceIRFPAI Quality Coding Scale 6 Independent with activity with or without an assistive device 5 Patient requires set up or clean up by helper. Patient completes activity by themselves 4 Supervision or touching assist (CGA). [place] provide cues , steadying assist 3 The helper provides less than half the effort to complete the activity 2 The helper provides more than half the effort to complete the activity 1 Dependent. The helper does all the effort to complete an activity 7 Patient refused to complete or attempt activity 9 The patient did not perform the activity before the current illness or injury 88 Not attempted due to Medical conditions or safety concerns Upper Body (FIM): 1 (Although only one person was needed, he did less than 25%) Transfers (B, C, W/C) (FIM): 1 Education OT Patient Education: Progress toward Goal/Update tx plan, Purpose of tx/ functional activities Teaching Recipient: Patient Teaching Methods: Discussion Response to Teaching: Verbalize Understanding OT Short Term Goals Short Term Goals Time Frame: September 22, 2017 Eating(FIM): 4 Bathing(FIM): 4 Upper Body Dressing(FIM): 4 Toilet/Commode Transfer(FIM): 3 Additional Short Term Goals: 1-Demonstrate ADL Tasks, 2-Verbalize Understanding , 3-ImproveStrength/[place] 1=Demonstrate adherence to instructed precautions during ADL tasks. 2=Patient will verbalize/demonstrate understanding of assistive devices/ modifications for ADL. 3=Patient will improve strength/tolerance for activity to enable patient to perform ADL's. OT Long-Term Goals Integrity Consultant Goals Time Frame: October 06, 2017 Eating (FIM): 5 Eating (QC): 4 Groomin Oral Hygiene (QC): 5 Bathing(FIM): 4 Shower/Bathe Self (QC): 4 Upper Body Dressing(FIM): 5 Upper Body Dressing (QC): 5 Lower Body Dressing(FIM): 5 Lower Body Dressing (QC): 5 On/Off Footwear (QC): 5 Toileting(FIM): 44 Toileting Hygiene (QC): 4 Toilet/Commode Transfer(FIM): 4 Toilet/Commode Transfer (QC): 4 Tub Transfer(FIM): 4 (or shower) Shower Transfer(FIM): 4 (or tub) Comprehension(FIM): 5 (MET) Expression (FIM): 4 (NOT MET) Social Interaction(FIM): 5 (MET) Problem Solving(FIM): 5 (NOT MET) Memory(FIM): 5 (MET) Additional Goals: 1-Demonstrate ADL Tasks, 2-Verbalize Understanding, 3- ImproveStrength/[place] 1=Demonstrate adherence to instructed precautions during ADL tasks. 2=Patient will verbalize/demonstrate understanding of assistive devices/ modifications for ADL. 3=Patient will improve strength/tolerance for activity to enable patient to perform ADL's. OT Education/Plan Problem List/Assessment Pt would benefit from skilled OT to increase his independence in basic self care and to decrease caregiver burden Discharge Recommendations Plan/Recommendations: Continue POC Treatment Plan/Plan of Care Patient would benefit from OT for education, treatment and training to promote independence in ADL's, mobility, safety and/or upper extremity function for ADL' s. Plan of Care: ADL Retraining, Functional Mobility, Group Exercise/Act as Ind ( education, exercise, socialization, problem solving, funct mobility), Orthotic Fitting/Training, UE Funct Exercise/Act, UE Neuromus Re-Ed/Coord, W/C Management Training Treatment Duration: October 06, 2017 Frequency: At least 5 of 7 days/Wk (IRF) Estimated Hrs Per Day: 1.5 hours per day (1.25 to 1.5) Agreement: Yes Rehab Potential: Poor Time/GCodes Start Time: 10:00 Stop Time: 11:00 Total Time Billed (hr/min): 60 Billed Treatment Time visit, 15 minutes ADL (individual tx), 45 minutes functional activity (co-tx with PT) CELIO PERDUE OT September 23, 2017 12:52
--- NOTE | 2017-09-23 13:44 | Physical Therapy Daily Note ---
PT Daily Note-Current Subjective Patient in bed pre tx, agrees to PT, no complaints of pain. Appearance Patient in bed post tx with nurse call, phone, tray, all needs met. Mental Status Patient Orientation: Person, Place, Situation Transfers Functional [place] Measure 0=Not Assessed/NA 4=Minimal Assistance 1=Total Assistance 5=Supervision or Setup 2=Maximal Assistance 6=Modified [place] 3=Moderate Assistance 7=Complete IndependenceIRFPAI Quality Coding Scale 6 Independent with activity with or without an assistive device 5 Patient requires set up or clean up by helper. Patient completes activity by themselves 4 Supervision or touching assist (CGA). [place] provide cues , steadying assist 3 The helper provides less than half the effort to complete the activity 2 The helper provides more than half the effort to complete the activity 1 Dependent. The helper does all the effort to complete an activity 7 Patient refused to complete or attempt activity 9 The patient did not perform the activity before the current illness or injury 88 Not attempted due to Medical conditions or safety concerns Exercises Supine Ex: Ankle pumps, Quad Set, Glut sets, Heel Slides, Straight leg raise, Hip abd/add Supine Reps: 40 bilateral lower extremity stretching/ROM in all planes Treatments stretching/ROM, functional strengthening Assessment Current Status: Poor Progress no change in mobility PT Short Term Goals Short Term Goals Time Frame: September 22, 2017 Gait (FIM): 2 Distance (FIM): 7=956-57 ft Gait Assistive Device: FWW Wheelchair (FIM): 4 Wheelchair distance (FIM): 3=150 ft Wheelchair Distance: 30 ft PT Patient Relations Representative Goals Patient Relations Representative Goals PT Care Home Goals Time Frame: October 06, 2017 Transfers (B,C,W/C) (FIM): 6 Sit to Lying (QC): 6 Lying-Sitting on Side/Bed(QC): 6 Sit to Stand (QC): 6 Rollin Roll Left to Right (QC): 6 Chair/Umu-hs-Acqrt Xfer(QC): 6 Car Transfer (QC): 5 Does the Patient Walk: No and Walking Goal IS indicated Gait (FIM): 5 Gait distance (FIM): 1=930-12 ft (household exception) Walk 10 feet (QC): 6 Walk 10ft-Uneven Surface(QC): 6 Walk 50ft with 2 Turns (QC): 6 Walk 150 ft (QC): 88 Gait Assistive Device: FWW Does the Pt use WC or Scooter?: Yes Wheelchair (FIM): 6 Wheelchair distance (FIM): 3=150 ft Wheel 50 feet with 2 turns (QC: 6 Stairs (FIM): 2 # of Steps: 4 1 Step (curb) (QC): 4 4 Steps (QC): 4 12 Steps (QC): 88 Picking up an Object (QC): 88 PT Plan Problem List Problem List: Activity Tolerance, Functional Strength, Safety, Balance, Gait, Transfer, Bed Mobility, ROM Treatment/Plan Treatment Plan: Continue Plan of Care Treatment Plan: Bed Mobility, Education, Functional Activity [place], Functional Strength, Group Therapy, Gait, Safety, Therapeutic Exercise, Transfers Treatment Duration: October 06, 2017 Frequency: At least 5 of 7 days/Wk (IRF) Estimated Hrs Per Day: 1.5 hours per day Patient and/or Family Agrees t: Yes Safety Risks/Education Patient Education: Correct Positioning, Safety Issues Teaching Recipient: Patient Teaching Methods: Demonstration, Discussion Response to Teaching: Reinforcement Needed Time/GCodes Time In: 1300 Time Out: 1345 Total Billed Treatment Time: 45 Total Billed Treatment 1 visit EX 45' ABI BARDALES PT September 23, 2017 13:44
[2017-09-23] MEDS: ACETAMINOPHEN 325 MG TABLET/CAPLET (TYLENOL) PO PRN (14:01)
--- NOTE | 2017-09-23 14:46 | PM & R (SOAP) Progress Note ---
Subjective This was a face to face visit with the patient. Date Seen by Provider: September 23, 2017 Time Seen by Provider: 07:50 Subjective/Events-last exam Patient was seen in his room this AM Patient with edema in hands and arms DR boyle has begun HCTZ Patient Max assist to dependent for transfers SW indicates that SNU in [place] has accepted patient for tomorrow Review of Systems Cardiovascular: Edema Neurological: Weakness Objective Physician Exam Last Set of Vital Signs Vital Signs Date Time Temp Pulse Resp B/P (MAP) Pulse Ox O2 Delivery O2 Flow Rate FiO2 09/23/17 09:00 Room Air 09/23/17 06:10 98.2 84 18 162/70 (100) 100 Capillary Refill : Less Than 3 Seconds I&O Intake and Output 09/22/17 23:59 Intake Total 1640 ml Output Total 1350 ml Balance 290 ml Intake Oral 1640 ml Output Urine Total 1350 ml # Voids 1 General: Alert, Cooperative, No Acute Distress HEENT: Atraumatic, PERRLA, EOMI, Mucous Memb Moist/[place], Other (Flat affect Monotone voice) Neck: Supple, No JVD Lungs: Clear to Auscultation Heart: Regular Rate Abdomen: Normal Bowel Sounds, Soft, No Tenderness Extremities: No Edema Neuro: Other (Plus rigidity with dyscoordination and decreased sensation BLES Mild memry loos and impaired Comprehension Gait instability) Results Lab Data Laboratory Tests 09/20/17 16:07: Glucometer 156H 09/20/17 18:38: Glucometer 129H 09/20/17 18:43: White Blood Count 7.4, Red Blood Count 1.99L, Hemoglobin 6.3*L, Hematocrit 19*L , Mean Corpuscular Volume 93, Mean Corpuscular Hemoglobin 32, Mean Corpuscular Hemoglobin Concent 34, Red Cell Distribution Width 15.2H, Platelet Count 388, Mean Platelet Volume 8.1, Neutrophils (%) (Auto) 81H, Lymphocytes (%) (Auto) 13 , Monocytes (%) (Auto) 6, Eosinophils (%) (Auto) 1, Basophils (%) (Auto) 0, Neutrophils # (Auto) 5.9, Lymphocytes # (Auto) 0.9L, Monocytes # (Auto) 0.4, Eosinophils # (Auto) 0.1, Basophils # (Auto) 0.0, Sodium Level 134L, Potassium Level 4.5, Chloride Level 109H, Carbon Dioxide Level 18L, Anion Gap 7, Blood Urea Nitrogen 16, Creatinine 0.66, Estimat Glomerular Filtration Rate > 60, BUN/ Creatinine Ratio 24, Glucose Level 125H, Calcium Level 7.7L 09/20/17 18:45: Blood Gas Puncture Site L RAD, Blood Gas Patient Temperature 97.0, Arterial Blood pH 7.44H, Arterial Blood Partial Pressure CO2 29L, Arterial Blood Partial Pressure O2 136H, Arterial Blood HCO3 20L, Arterial Blood Total CO2 20.6L, Arterial Blood Oxygen Saturation 100, Arterial Blood Base Excess -3.9L, [place] Test YES-POS, Blood Gas Ventilator Setting NO, Blood Gas Inspired Oxygen 2L 09/20/17 20:13: Glucometer 137H 09/21/17 05:51: Glucometer 115H 09/21/17 07:17: Hemoglobin 8.1#L, Hematocrit 24L 09/21/17 11:16: Glucometer 182H 09/21/17 16:18: Glucometer 183H 09/21/17 20:24: Glucometer 193H 09/22/17 06:15: Glucometer 138H 09/22/17 11:03: Glucometer 155H 09/22/17 16:03: Glucometer 177H 09/22/17 20:53: Glucometer 160H 09/23/17 05:58: Glucometer 154H 09/23/17 06:16: White Blood Count 8.8, Red Blood Count 2.75L, Hemoglobin 8.5L, Hematocrit 25L, Mean Corpuscular Volume 92, Mean Corpuscular Hemoglobin 31, Mean Corpuscular Hemoglobin Concent 34, Red Cell Distribution Width 15.0H, Platelet Count 440H, Mean Platelet Volume 8.2, Neutrophils (%) (Auto) 82H, Lymphocytes (%) (Auto) 13 , Monocytes (%) (Auto) 4, Eosinophils (%) (Auto) 1, Basophils (%) (Auto) 0, Neutrophils # (Auto) 7.2, Lymphocytes # (Auto) 1.1, Monocytes # (Auto) 0.4, Eosinophils # (Auto) 0.1, Basophils # (Auto) 0.0, Neutrophils % (Manual) 87, Lymphocytes % (Manual) 10, Monocytes % (Manual) 3, Eosinophils % (Manual) 0, Basophils % (Manual) 0, Band Neutrophils 0, Blood Morphology Comment NORMAL, Absolute Reticulocyte Count 55, Percent Reticulocyte Count 1.98, Iron Level 30L , Total Iron Binding Capacity 163L, Unsaturated Iron Binding Capacity 133, Transferrin % Saturation 18 09/23/17 11:00: Glucometer 198H Microbiology 09/09/17 Urine Culture - Final, Complete Assessment/Plan Assessment and Plan Progressive [place] D Chronic anemia s/p transfusion Hem assessing Labs noted Overmedication improved with adjustment of Sinemet Generic dosage DM controlled DJD CSpine ANTONIA Anxiety/depression Neuropathy Chronic back pain HTN controlled Plan Continue PT/OT Discharge tomorrow to SNU in [facility] patients [place] F/U with Physician there with ongoing therapies Current meds reviewed (1) Severe possible major neurocognitive disorder due to Parkinson's disease Status: Chronic Co-Morbidities that are continuing to impact the rehab process: (include details ) DAISHA MUSTAFA MD September 23, 2017 14:45
--- NOTE | 2017-09-23 15:00 | Occupational Ther Daily Note ---
OT Current Status-Daily Note Subjective Pt seen in room, up in bed, agreeable to OT. No pain mentioned but grimaced with some neck movements. Appearance Alert, cooperative, a little sleepy Mental Status/Objective Functional [place] Measure 0=Not Assessed/NA 4=Minimal Assistance 1=Total Assistance 5=Supervision or Setup 2=Maximal Assistance 6=Modified [place] 3=Moderate Assistance 7=Complete [place] ADL-Treatment Functional [place] Measure 0=Not Assessed/NA 4=Minimal Assistance 1=Total Assistance 5=Supervision or Setup 2=Maximal Assistance 6=Modified [place] 3=Moderate Assistance 7=Complete IndependenceIRFPAI Quality Coding Scale 6 Independent with activity with or without an assistive device 5 Patient requires set up or clean up by helper. Patient completes activity by themselves 4 Supervision or touching assist (CGA). [place] provide cues , steadying assist 3 The helper provides less than half the effort to complete the activity 2 The helper provides more than half the effort to complete the activity 1 Dependent. The helper does all the effort to complete an activity 7 Patient refused to complete or attempt activity 9 The patient did not perform the activity before the current illness or injury 88 Not attempted due to Medical conditions or safety concerns Other Treatment Isotoner gloves removed and gentle retrograde massage done to bilat hands to help decrease edema. No reddened areas noted from seams of gloves. Pt worked on rolling to side so wound care nurse could look at his bottom and heels. Did AROM and AAROM bilat UEs (L UE strength 2/5 and R 2+/5). Pt positioned on R side , with L arm supported on pillow, all needs met. Education OT Patient Education: Purpose of tx/functional activities Teaching Recipient: Patient Teaching Methods: Discussion Response to Teaching: Verbalize Understanding OT Short Term Goals Short Term Goals Time Frame: September 22, 2017 Eating(FIM): 4 Bathing(FIM): 4 Upper Body Dressing(FIM): 4 Toilet/Commode Transfer(FIM): 3 Additional Short Term Goals: 1-Demonstrate ADL Tasks, 2-Verbalize Understanding , 3-ImproveStrength/[place] 1=Demonstrate adherence to instructed precautions during ADL tasks. 2=Patient will verbalize/demonstrate understanding of assistive devices/ modifications for ADL. 3=Patient will improve strength/tolerance for activity to enable patient to perform ADL's. OT Back Up Scan Coordinator Goals Back Up Scan Coordinator Goals Time Frame: October 06, 2017 Eating (FIM): 5 Eating (QC): 4 Groomin Oral Hygiene (QC): 5 Bathing(FIM): 4 Shower/Bathe Self (QC): 4 Upper Body Dressing(FIM): 5 Upper Body Dressing (QC): 5 Lower Body Dressing(FIM): 5 Lower Body Dressing (QC): 5 On/Off Footwear (QC): 5 Toileting(FIM): 44 Toileting Hygiene (QC): 4 Toilet/Commode Transfer(FIM): 4 Toilet/Commode Transfer (QC): 4 Tub Transfer(FIM): 4 (or shower) Shower Transfer(FIM): 4 (or tub) Comprehension(FIM): 5 (MET) Expression (FIM): 4 (NOT MET) Social Interaction(FIM): 5 (MET) Problem Solving(FIM): 5 (NOT MET) Memory(FIM): 5 (MET) Additional Goals: 1-Demonstrate ADL Tasks, 2-Verbalize Understanding, 3- ImproveStrength/[place] 1=Demonstrate adherence to instructed precautions during ADL tasks. 2=Patient will verbalize/demonstrate understanding of assistive devices/ modifications for ADL. 3=Patient will improve strength/tolerance for activity to enable patient to perform ADL's. OT Education/Plan Problem List/Assessment Pt would benefit from skilled OT to increase his independence in basic self care and to decrease caregiver burden Discharge Recommendations Plan/Recommendations: Continue POC Treatment Plan/Plan of Care Patient would benefit from OT for education, treatment and training to promote independence in ADL's, mobility, safety and/or upper extremity function for ADL' s. Plan of Care: ADL Retraining, Functional Mobility, Group Exercise/Act as Ind ( education, exercise, socialization, problem solving, funct mobility), Orthotic Fitting/Training, UE Funct Exercise/Act, UE Neuromus Re-Ed/Coord, W/C Management Training Treatment Duration: October 06, 2017 Frequency: At least 5 of 7 days/Wk (IRF) Estimated Hrs Per Day: 1.5 hours per day (1.25 to 1.5) Agreement: Yes Rehab Potential: Poor Time/GCodes Start Time: 14:00 Stop Time: 14:30 Total Time Billed (hr/min): 30 Billed Treatment Time visit, 30 minutes functional activity CELIO PERDUE OT September 23, 2017 15:00
[2017-09-23 16:04] VITALS: BP 145/81
[2017-09-23] MEDS ORDERED: BUSP10TA95 PO (20:00)
[2017-09-23] MEDS ORDERED: BISA5TAB8 PO (20:00)
[2017-09-23] MEDS ORDERED: SENN-20 PO (20:00)
[2017-09-23] MEDS ORDERED: HYDR12.5 PO (20:00)
[2017-09-23] MEDS ORDERED: PANT20TA3 PO (20:00)
[2017-09-23] MEDS ORDERED: NYST15CR TP (20:00)
--- NOTE | 2017-09-23 23:54 | CONSULTATION REPORT ---
DATE OF SERVICE: 09/23/2017 REFERRING PHYSICIAN: Nelson Atkins DO. The patient is admitted to rehab floor in room 225. IMPRESSION: 1. Hypoproliferative anemia of undetermined etiology. 2. Longstanding Parkinson's disease, which has been gradually declining with worsening performance status. 3. Increasing weakness, status post one unit of packed red blood cell transfusion. 4. History of diabetes mellitus type 2, hypertension and severe osteoarthritis. RECOMMENDATIONS: 1. Agree with PRBC transfusion because of symptomatic anemia. 2. We will await serum iron studies. 3. I will order serum protein electrophoresis with a serum light chain ratio and quantitative immunoglobulins because of moderate to significant rouleaux formation noted on the peripheral smear. 4. Continue rehabilitation as you are doing. BRIEF HISTORY: The patient is a 57-year-old male from [place], [place], who was sent to [facility] from [facility] because of deconditioning. The patient has a longstanding history of Parkinson's disease and until several weeks ago, he was able to take care of himself. He had a fall, was admitted to [facility]. Because of worsening performance status and deconditioning, he was referred to the rehabilitation unit. The patient was found to be anemic, which was worsening and hematology consultation was obtained. He was ordered a transfusion with one unit of packed red blood cells. The patient denied any obvious bleeding from anywhere. The fecal occult blood test checked recently was negative. PAST MEDICAL HISTORY: Significant for Parkinson's disease, diabetes mellitus type 2, gastroesophageal reflux disease, hypertension, neuropathy, history of osteoarthritis, requiring three separate back surgeries, sleep apnea, anxiety and depression, previous history of back injury. PRIOR SURGERIES: Include three separate spinal surgeries in the past. SOCIAL HISTORY: The patient lives in [place], [place] with his significant other. He has three children, twin daughters and a son, all of whom live at home. He previously worked at a [employer]. He has not been able to work for some time because of Parkinson's disease and declining performance status. No significant history of tobacco, alcohol or other recreational drug use. FAMILY HISTORY: Unremarkable and noncontributory. PHYSICAL EXAMINATION: GENERAL: Today showed elderly male, awake, oriented, having some difficulty communicating because of his Parkinson's. VITAL SIGNS: Temperature was 97.5, pulse rate of 98, respirations 14, blood pressure 145/81, oxygen saturation of 99% on room air. HEENT: Normocephalic, extraocular muscles intact, oral mucosa moist. Conjunctivae are slightly pale. NECK: Supple, no JVD. No cervical, supraclavicular or axillary lymphadenopathy palpable. CHEST: Symmetrical. LUNGS: Fairly clear to auscultation without wheezes or rales. CARDIOVASCULAR: Regular rate and rhythm. No murmurs or gallops. ABDOMEN: Soft, nontender with no hepatosplenomegaly or other masses palpable. EXTREMITIES: Showed no edema. NEUROLOGIC: Significant for rigidity related to Parkinson's. There is significant limitation in movement of all extremities. LABORATORY DATA: Reviewed his lab work done today. CBC showed white count of 8.8, hemoglobin 8.5, MCV 92, platelet count 440,000 with neutrophil count of 7.2 and lymphocyte count 1.1. Previous CBC from 09/20/2017 had shown white count of 7.4, hemoglobin 6.3, platelet count of 388,000, after which he received one unit of packed red blood cells. CMP done on 09/10/2017 showed relatively normal electrolytes. BUN was 22, creatinine 0.66 with GFR more than 60 mL per minute. Nonfasting glucose was 145. Liver function studies are normal except albumin level of 2.0. I reviewed the peripheral smear from today. This showed a slight microcytosis, but no significant hypochromia. Mild poikilocytosis noted. Moderate rouleaux formation noted. White blood cells appeared unremarkable with normal appearing neutrophils and lymphocytes. No immature cells identified. Platelets appeared normal in size and morphology. Serum iron studies are pending. Thank you for allowing me to participate in this patient's care. I will follow the patient with you and make appropriate recommendations. Job ID: [id number] DocumentID: [id number] Dictated Date: 09/23/2017 17:05:10 Precision Instrument Maker Date: 09/23/2017 23:54:01 Dictated By: MARINA ROSA MD [facility]
[2017-09-24] MEDS: SINEMET 25/250 (CARBIDOPA/LEVODOPA) TAB PO SCH ×4 (00:22→12:52)
[2017-09-24 05:14] VITALS: BP 170/90
[2017-09-24] MEDS: FERROUS SULF 325 MG (IRON) TAB PO SCH (06:26)
[2017-09-24] MEDS: metFORMIN 500 MG (GLUCOPHAGE) TAB PO SCH (06:26)
[2017-09-24] MEDS: PANTOPRAZOLE 20 MG TABLET (PROTONIX) PO SCH (06:26)
--- NOTE | 2017-09-24 08:17 | Progress Note (SOAP) ---
Subjective Time Seen by Provider: 08:15 Subjective/Events-last exam [facility]. Patient being evaluated by hematology for anemia Objective Exam Vital Signs Date Time Temp Pulse Resp B/P (MAP) Pulse Ox O2 Delivery O2 Flow Rate FiO2 09/24/17 05:14 98.4 84 17 170/90 (116) 99 Room Air 09/23/17 20:20 Room Air 09/23/17 16:04 97.5 98 14 145/81 (102) 99 09/23/17 09:00 Room Air I & O 09/24/17 07:00 Intake Total 1200 ml Output Total 1160 ml Balance 40 ml Capillary Refill : Less Than 3 Seconds General Appearance: No Apparent Distress, WD/WN HEENT: Normal ENT Inspection Results Lab Laboratory Tests 09/23/17 11:00: Glucometer 198H 09/23/17 16:00: Glucometer 185H 09/23/17 20:23: Glucometer 155H 09/24/17 05:17: Glucometer 155H 09/24/17 06:37: Microbiology 09/09/17 Urine Culture - Final, Complete Assessment/Plan Assessment/Plan Assess & Plan/Chief Complaint Severe Parkinson. Debility. Diabetes. Osteoarthritis. Weakness.. . 09/10/17. Severe Parkinson. Debility. Diabetes. Anemia. Rechecking anemia. . 09/11/17. Severe Parkinson disease. Debility. Anemia. Diabetes. Hemoglobin 7.1. . 09/12/17. Debility. Anemia. Diabetes. Hemoglobin 7.1 stable . 09/15/17. Debility. Severe Parkinson disease. Diabetes under good control. Anemia stabilized area Occult blood of the stools negative. . 09/16/17. Debility. Severe Parkinson disease. Diabetes. Anemia. Patient feel has improved some. . 09/17/17. Debility. Severe Parkinson disease. Diabetes. Mani an anemia. Difficulty understand patient's words this morning. . 09/18/17. Debility. Severe Parkinson disease. Anemia stable. Diabetes good. Patient speaking much better today. Patient complaining of some upper back discomfort. . 09/19/17. Debility. Severe Parkinson disease. Anemia. Diabetes good. Patient improving with his speech. . 09/22/17. Patient had a rapid response team this weekend. Patient hemoglobin was down to 6.3 area Patient received a unit of blood. Diabetes. Patient voicing no complaints today. To check hemoglobin tomorrow. . 09/23/17. Anemia. Diabetes under control. Hypertension with few days put on HCTZ. Patient to be [facility] tomorrow to jail . . 09/24/17. Debility. Severe Parkinson disease. Diabetes on the controls. Hypertension. Patient be discharged today Clinical Quality Measures DVT/VTE Risk/Contraindication: Risk Factor Score Per Nursin RFS Level Per Nursing on Admit: 3=High JAMES DE LA CRUZ DO September 24, 2017 08:17
--- NOTE | 2017-09-24 08:20 | PM & R (SOAP) Progress Note ---
Subjective This was a face to face visit with the patient. Date Seen by Provider: September 24, 2017 Time Seen by Provider: 07:50 Subjective/Events-last exam Patient was seen in his room this AM Appreciate DR Mcallister note and orders Labs he ordered pending Patient set for discharge today to SNU in [facility] patient is from This Lab work may be relayed to the Physician who will be caring for him,Discussed case with DR Atkins Objective Physician Exam Last Set of Vital Signs Vital Signs Date Time Temp Pulse Resp B/P (MAP) Pulse Ox O2 Delivery O2 Flow Rate FiO2 09/24/17 05:14 98.4 84 17 170/90 (116) 99 Room Air Capillary Refill : Less Than 3 Seconds I&O Intake and Output 09/24/17 00:00 Intake Total 1480 ml Output Total 1260 ml Balance 220 ml Intake Oral 1480 ml Output Urine Total 1260 ml # Bowel Movements 1 General: Alert, Cooperative, No Acute Distress HEENT: Atraumatic, PERRLA, EOMI, Mucous Memb Moist/[place], Other (Flat affect Monotone voice) Neck: Supple, No JVD Lungs: Clear to Auscultation Heart: Regular Rate Abdomen: Normal Bowel Sounds, Soft, No Tenderness Extremities: No Edema Neuro: Other (Plus rigidity with dyscoordination and decreased sensation BLES Mild memry loos and impaired Comprehension Gait instability) Results Lab Data Laboratory Tests 09/21/17 11:16: Glucometer 182H 09/21/17 16:18: Glucometer 183H 09/21/17 20:24: Glucometer 193H 09/22/17 06:15: Glucometer 138H 09/22/17 11:03: Glucometer 155H 09/22/17 16:03: Glucometer 177H 09/22/17 20:53: Glucometer 160H 09/23/17 05:58: Glucometer 154H 09/23/17 06:16: White Blood Count 8.8, Red Blood Count 2.75L, Hemoglobin 8.5L, Hematocrit 25L, Mean Corpuscular Volume 92, Mean Corpuscular Hemoglobin 31, Mean Corpuscular Hemoglobin Concent 34, Red Cell Distribution Width 15.0H, Platelet Count 440H, Mean Platelet Volume 8.2, Neutrophils (%) (Auto) 82H, Lymphocytes (%) (Auto) 13 , Monocytes (%) (Auto) 4, Eosinophils (%) (Auto) 1, Basophils (%) (Auto) 0, Neutrophils # (Auto) 7.2, Lymphocytes # (Auto) 1.1, Monocytes # (Auto) 0.4, Eosinophils # (Auto) 0.1, Basophils # (Auto) 0.0, Neutrophils % (Manual) 87, Lymphocytes % (Manual) 10, Monocytes % (Manual) 3, Eosinophils % (Manual) 0, Basophils % (Manual) 0, Band Neutrophils 0, Blood Morphology Comment NORMAL, Absolute Reticulocyte Count 55, Percent Reticulocyte Count 1.98, Iron Level 30L , Total Iron Binding Capacity 163L, Unsaturated Iron Binding Capacity 133, Transferrin % Saturation 18, Ferritin 302.0H 09/23/17 11:00: Glucometer 198H 09/23/17 16:00: Glucometer 185H 09/23/17 20:23: Glucometer 155H 09/24/17 05:17: Glucometer 155H 09/24/17 06:37: Microbiology 09/09/17 Urine Culture - Final, Complete Assessment/Plan Assessment and Plan Discharge today to [facility] F/U with Physician there See orders Current meds reviewed D/C Hep lock (1) Severe possible major neurocognitive disorder due to Parkinson's disease Status: Chronic Co-Morbidities that are continuing to impact the rehab process: (include details ) DAISHA MUSTAFA MD September 24, 2017 08:20
[2017-09-24] MEDS: PROPRANOLOL 20 MG (INDERAL) TABLET PO SCH (08:22)
[2017-09-24] MEDS: SENNA W/DOCUSATE (SENOKOT S) TABLET PO SCH (08:22)
[2017-09-24] MEDS: amLODIPine 5 MG (NORVASC) TAB PO SCH (08:22)
[2017-09-24] MEDS: BISACODYL 5 MG (DULCOLAX) TABLET PO SCH (08:22)
[2017-09-24] MEDS: busPIRone 10 MG (BUSPAR) TAB PO SCH (08:22)
[2017-09-24] MEDS: HYDROCHLOROTHIAZIDE 12.5 MG (HCTZ) CAP PO SCH (08:22)
[2017-09-24] MEDS: NYSTATIN CREAM (MYCOSTATIN) 30 GM TUBE TP SCH (08:24)
[2017-09-24] MEDS: ACETAMINOPHEN 325 MG TABLET/CAPLET (TYLENOL) PO PRN (09:53)
--- NOTE | 2017-09-24 09:55 | Therapy Team Discharge Summary ---
Therapy Discharge Summary Discharge Recommendations Date of Discharge Physical Therapy Patient came to rehab with Severe Parkinson's, Debility. Upon evaluation patient was dependent for bed mobility, transfers, wheelchair mobility. He did not ambulate and was not able to stand. Patient has been performing bed mobility and transfer training, balance and endurance training, functional strengthening, wheelchair mobility training, and education. Patient has made poor progress and has not met any of his fpc goals. Now, patient performs bed mobility with dependence, but is able to perform sit to stand and stand pivot transfer with max assist. He is still dependent for wheelchair mobility. Patient is being discharged from this facility today and will be discharged from PT at this time. Occupational Therapy Decreased Activ Tolerance, Decreased UE Strength, Dependent Transfers, Edema, Impaired Bed Mobility, Impaired Coordination, Impaired Funct Balance, Impaired Self-Care Skills, Restricted Funct UE ROM PT Senior Infrastructure Architect Goals Group Home Goals PT Senior Infrastructure Architect Goals Time Frame: October 06, 2017 Transfers (B,C,W/C) (FIM): 6 Roll Left to Right (QC): 6 Sit to Lying (QC): 6 Lying-Sitting on Side/Bed(QC): 6 Sit to Stand (QC): 6 Chair/Wmt-md-Eywpr Xfer(QC): 6 Car Transfer (QC): 5 Does the Patient Walk: No and Walking Goal IS indicated Gait (FIM): 5 Gait distance (FIM): 0=138-72 ft (household exception) Walk 10 feet (QC): 6 Walk 10ft-Uneven Surface(QC): 6 Walk 50ft with 2 Turns (QC): 6 Walk 150 ft (QC): 88 Gait Assistive Device: FWW Does the Pt use WC or Scooter?: Yes Wheelchair (FIM): 6 Wheelchair distance (FIM): 3=150 ft Wheel 50 feet with 2 turns (QC: 6 Stairs (FIM): 2 # of Steps: 4 1 Step (curb) (QC): 4 4 Steps (QC): 4 12 Steps (QC): 88 Picking up an Object (QC): 88 OT Senior Infrastructure Architect Goals Group Home Goals Time Frame: October 06, 2017 Eating (FIM): 5 Eating (QC): 4 Oral Hygiene (QC): 5 Grooming(FIM): 5 Bathing(FIM): 4 Shower/Bathe Self (QC): 4 Upper Body Dressing(FIM): 5 Upper Body Dressing (QC): 5 Lower Body Dressing(FIM): 5 Lower Body Dressing (QC): 5 On/Off Footwear (QC): 5 Toileting(FIM): 44 Toileting Hygiene (QC): 4 Toilet/Commode Transfer(FIM): 4 Toilet/Commode Transfer (QC): 4 Tub Transfer(FIM): 4 (or shower) Shower Transfer(FIM): 4 (or tub) Comprehension(FIM): 5 (MET) Expression (FIM): 4 (NOT MET) Social Interaction(FIM): 5 (MET) Problem Solving(FIM): 5 (NOT MET) Memory(FIM): 5 (MET) Additional Goals: 1-Demonstrate ADL Tasks, 2-Verbalize Understanding, 3- ImproveStrength/[place] 1=Demonstrate adherence to instructed precautions during ADL tasks. 2=Patient will verbalize/demonstrate understanding of assistive devices/ modifications for ADL. 3=Patient will improve strength/tolerance for activity to enable patient to perform ADL's. Speech Group Home Goals Group Home Goals 1. The patient will demonstrate increased expressive communication for improved intelligibility in known and unknown contexts. Time Frame: Two Weeks Comprehension: 5 (MET) Expression: 4 (NOT MET) Social Interaction: 5 (MET) Problem Solvin (NOT MET) Memory: 5 (MET) ABI BARDALES PT September 24, 2017 09:55
[2017-09-24] MEDS ORDERED: SINEMET 25/250 (CARBIDOPA/LEVODOPA) TAB PO NR ×2 (10:09→12:00)
[2017-09-24 13:44] VITALS: BP 150/88
--- NOTE | 2017-09-24 15:16 | Therapy Team Discharge Summary ---
Therapy Discharge Summary Discharge Recommendations Date of Discharge 09-24-17 Occupational Therapy Pt was seen for skilled OT following hospitalization for sepsis and UTI. Recovery was complicated by Parkinson's and anemia. On admission he need max assist to eat, groom and dress upper body, he was dependant with bathing (could do 20%), he was dependant with lower body dressing and toileting and was unsafe to complete toilet transfers. By discharge he had improved to setup for meals, min assist grooming, mod assist bathing, max assist lower body dressing and was dependant with upper body dressing, toileting/ toilet transfer and shower transfer. Transfers were generally completed with sit to stand lift and sitting at EOB required two person assist. He also used builtup handled silverware, Levy cup, Dycem mat, wheelchair, shower chair, hand held shower, grab bars. See tx plan for goals met. DC OT Decreased Activ Tolerance, Decreased UE Strength, Dependent Transfers, Edema, Impaired Bed Mobility, Impaired Coordination, Impaired Funct Balance, Impaired Self-Care Skills, Restricted Funct UE ROM PT Children'S Lunchroom Supervisor Goals Children'S Lunchroom Supervisor Goals PT Children'S Lunchroom Supervisor Goals Time Frame: October 06, 2017 Transfers (B,C,W/C) (FIM): 6 Roll Left to Right (QC): 6 Sit to Lying (QC): 6 Lying-Sitting on Side/Bed(QC): 6 Sit to Stand (QC): 6 Chair/Fzl-iy-Qwogz Xfer(QC): 6 Car Transfer (QC): 5 Does the Patient Walk: No and Walking Goal IS indicated Gait (FIM): 5 Gait distance (FIM): 0=558-05 ft (household exception) Walk 10 feet (QC): 6 Walk 10ft-Uneven Surface(QC): 6 Walk 50ft with 2 Turns (QC): 6 Walk 150 ft (QC): 88 Gait Assistive Device: FWW Does the Pt use WC or Scooter?: Yes Wheelchair (FIM): 6 Wheelchair distance (FIM): 3=150 ft Wheel 50 feet with 2 turns (QC: 6 Stairs (FIM): 2 # of Steps: 4 1 Step (curb) (QC): 4 4 Steps (QC): 4 12 Steps (QC): 88 Picking up an Object (QC): 88 OT Children'S Lunchroom Supervisor Goals Detention Goals Time Frame: October 06, 2017 Eating (FIM): 5 (met 09-22-) Eating (QC): 4 (met 09-22-17) Oral Hygiene (QC): 5 (not met 09-22-17) Grooming(FIM): 5 (not met 09-22-17) Bathing(FIM): 4 (not met 09-22-17) Shower/Bathe Self (QC): 4 (not met 09-22-17) Upper Body Dressing(FIM): 5 (not met 09-22-17) Upper Body Dressing (QC): 5 (not met 09-22-17) Lower Body Dressing(FIM): 5 (not met 09-22-17) Lower Body Dressing (QC): 5 (not met 09-22-17) On/Off Footwear (QC): 5 (not met 09-22-17) Toileting(FIM): 4 (not met 09-22-17) Toileting Hygiene (QC): 4 (not met 09-22-17) Toilet/Commode Transfer(FIM): 4 (not met 09-22-17) Toilet/Commode Transfer (QC): 4 (not met 09-22-17) Tub Transfer(FIM): 4 (or shower) Shower Transfer(FIM): 4 (or tub not met 09-22-17) Comprehension(FIM): 5 (MET) Expression (FIM): 4 (NOT MET) Social Interaction(FIM): 5 (MET) Problem Solving(FIM): 5 (NOT MET) Memory(FIM): 5 (MET) Additional Goals: 1-Demonstrate ADL Tasks, 2-Verbalize Understanding, 3- ImproveStrength/[place] 1=Demonstrate adherence to instructed precautions during ADL tasks. 2=Patient will verbalize/demonstrate understanding of assistive devices/ modifications for ADL. 3=Patient will improve strength/tolerance for activity to enable patient to perform ADL's. Speech Detention Goals Detention Goals 1. The patient will demonstrate increased expressive communication for improved intelligibility in known and unknown contexts. Time Frame: Two Weeks Comprehension: 5 (MET) Expression: 4 (NOT MET) Social Interaction: 5 (MET) Problem Solvin (NOT MET) Memory: 5 (MET) CELIO PERDUE OT September 24, 2017 15:16
--- NOTE | 2017-09-26 07:19 | DISCHARGE SUMMARY ---
DATE OF SERVICE: 09/24/2017 HISTORY OF PRESENT ILLNESS: The patient is a 57-year-old male with longstanding Parkinson's disease who was living with his family in [place], [place], but he has had progressive decline in functional status. He was having home health care through [facility] in [place]. They referred him for an assessment in inpatient rehabilitation unit. Most recently, he has had a fall and was found to have a UTI, which further contributed to his decline. There is a history of some bladder and bowel incontinence. He is on Sinemet q.3 hours. His PCP is DO Dory in [place], [place]. PAST MEDICAL HISTORY: Parkinson's disease, diabetes mellitus, GERD, hypertension, neuropathy, osteoarthritis, chronic constipation, sleep apnea, anxiety, depression, prior back injury, tension headaches, degenerative disk disease of the cervical spine. PAST SURGICAL HISTORY: He has had 3 prior spine surgeries. MEDICAL COURSE: The patient was followed by Dr. Ahn and Dr. Atkins while on rehab unit. The patient requested an increase of his Sinemet to prior levels, this was done on a Friday. Unfortunately, he had increased sedation from this unresponsive episode over the weekend and Dr. Conrad adjusted the medication to a lower dose. The patient then requested prior to discharge that he resume his home dose, which was so ordered. The patient had problems with chronic constipation, medication adjusted to that. He had a declining hemoglobin. He was on iron replacement without much results, it did go dipped below 7 and he required transfusion 1 unit packed red blood cells. Dr. Atkins consulted Dr. Laurent, medical oncology/hematology, he did various tests. He did not feel the patient would benefit from iron any longer. His H and H prior to transfusion on 09/20 was 6.3/19. On 09/23, it was 8.5/25. Immunology testing revealed an elevated IgA, low IgM, elevated free kappa LC and free lambda LC and free kappa/lambda ratio of 2.0, the lambda was 57.83 and the kappa was 117.57. Dr. Laurent indicated that he would follow up with be providing physician at the snf where the patient was referred to in [place] for further recommendations and treatment. The family indicated they were unable to care for the patient. He was making minimal if any improvement with therapies and the social staff worker assisted the patient and family with [place] [place] in his home community of [place], [place]. Glucometer readings from 09/23 to 09/24 varied between 153 and 185. His total protein was 5.3 on protein electrophoresis, which was low. He was afebrile during his stay. His pulse was 88 on 09/24, blood pressure 150/88, O2 sat 98% on room air. REHABILITATION COURSE: Progress was slowed with minimal gains were made. OT notes upon admission, he required max assist to eat, groom and dress upper body. He was dependent with bathing and lower body dressing and toileting. It was unsafe to complete toilet transfers. By discharge, he had improved to set up for meals, min assist for grooming, mod assist for bathing, max assist for lower body dressing and he was dependent with upper body dressing, toileting and toilet transfers and shower transfers. PT notes upon admission, the patient was dependent for bed mobility, transfers and wheelchair mobility. He did not ambulate and was unable to stand. Upon discharge, he is still dependent for bed mobility, but is able to perform sit to stand and stand pivot transfers with max assist. He is still dependent for wheelchair mobility. Speech therapy notes upon admission, the patient displayed moderate dysphonia, speech skill, speech pathology, focused on improved, breath support, adductor fold exercises and increased vocal effort. Limited to zero progression was made throughout voice therapy as the patient frequently required encouragement for increased effort and volume. No additions speech services were warranted at this time. DISCHARGE INSTRUCTIONS: The patient is [place] [facility] [place] in his home community of [place], [place]. He will have followup with his PCP or snf physician there. Dr. Laurent indicated he would follow up with receiving physician about any further recommendations about the anemia. Continue current diet. Discontinue iron replacement at this time. The patient can have PT, OT evaluate and treat. DISCHARGE MEDICATIONS: Dulcolax 5 mg p.o. daily, buspirone 10 mg p.o. b.i.d., hydrochlorothiazide 12.5 mg p.o. daily, nystatin topically t.i.d., Protonix mg p.o. daily, Senokot-S 1 tablet p.o. b.i.d., Tylenol extra strength 1000 mg p.o. b.i.d. p.r.n. mild pain, Sinemet generic 25/250 two tablets p.o. q.2 hours, metformin 1000 mg p.o. b.i.d., MiraLax 17 grams p.o. b.i.d. p.r.n. constipation, propranolol 40 mg p.o. b.i.d., and Accu-Cheks b.i.d. DISCHARGE DIAGNOSES: 1. Rehabilitation, severe Parkinson's disease. 2. Neuropathy fingers. 3. Diabetes mellitus with neuropathy. 4. Hypertension. 5. Obstructive sleep apnea. 6. Anxiety. 7. Depression. 8. Osteoarthritis. 9. Chronic idiopathic constipation. 10. Intermittent urinary incontinence. 11. Gastroesophageal reflux disease. 12. Chronic back pain. 13. Tension headaches. 14. Anemia, improved somewhat status post blood transfusion. 15. Long-term use metformin. 16. Degenerative joint disease, cervical spine. 17. Unresponsive episode medication-related, improved. CONDITION AT DISCHARGE: Somewhat improved and stable. PROGNOSIS: Rehab prognosis appears somewhat guarded for continued improvement for this patient with progressive Parkinson's disease and multiple other comorbidities. Job ID: [id number] DocumentID: [id number] Dictated Date: 09/25/2017 15:58:29 Dry Transfer Man Date: 09/26/2017 07:18:50 Dictated By: DAISHA AHN MD
== END 2017-09-24 13:00 | DRG 56 ==
PROVIDERS: ADMIT Physical Medicine & Rehabilitation; ATTEND Physical Medicine & Rehabilitation
DX: G20 Parkinson's disease (principal); G56.93 Unspecified mononeuropathy of bilateral upper limbs; E11.40 Type 2 diabetes mellitus with diabetic neuropathy, unspecified; I10 Essential (primary) hypertension; G47.33 Obstructive sleep apnea (adult) (pediatric); F41.9 Anxiety disorder, unspecified; F32.9 Major depressive disorder, single episode, unspecified; R40.20 Unspecified coma; M19.90 Unspecified osteoarthritis, unspecified site; K59.04 Chronic idiopathic constipation; R32 Unspecified urinary incontinence; K21.9 Gastro-esophageal reflux disease without esophagitis; M54.9 Dorsalgia, unspecified; G44.209 Tension-type headache, unspecified, not intractable; D64.9 Anemia, unspecified; Z79.84 Long term (current) use of oral hypoglycemic drugs; M47.812 Spondylosis without myelopathy or radiculopathy, cervical region
CPT/HCPCS: 36415; 36600; 70450; 72040; 74018; 80048; 80053; 81000; 82274; 82728; 82784; 82805; 82962; 83540; 83880; 83883; 84155; 84165; 85007; 85014; 85018; 85025; 85027; 85045; 86850; 86900; 86901; 86920; 87088; 93005